=== PATIENT | female | born 1945 | race Caucasian/White ===

== ENCOUNTER 2023-08-17 21:15 | Inpatient (IN) ==
[2023-08-17] MEDS: ACETAMINOPHEN 1,000 MG/100 ML VIAL IV STA (21:54)
[2023-08-17] MEDS: SODIUM CHLORIDE 0.9% 1,000 ML IV STA (21:54)
--- NOTE | 2023-08-17 21:57 | Emergency Department Note ---
Impression & Plan Left sided abdominal pain, Diverticulitis, Calculus of proximal left ureter ED Provider Note CHIEF COMPLAINT: Left-sided abdominal pain x 2 days HISTORY OF PRESENT ILLNESS: This 78-year-old female patient presents to the emergency department via private vehicle for evaluation of left-sided abdominal pain. This has been ongoing for 2 days. The patient states that the symptoms are associated with some loose brown stool. She denies any hematochezia or melena. The patient denies any documented fever, but did states she felt feverish last night. She denies nausea or vomiting. She denies any dysuria, urinary frequency, urinary hesitancy, hematuria. The patient took some Tylenol and migraine medication without significant improvement in her symptoms. She states that she does have a history of diverticulitis, but is uncertain whether or not the pain felt like this. She does report history of a hysterectomy and when asked if she still has her gallbladder and appendix, states "I think they took them out with my hysterectomy, but I'm not sure." Patient is uncertain of her chronic medical conditions. She has been dealing with some right shoulder pain which is being worked up as an outpatient. The patient is a poor historian in general. REVIEW OF SYSTEMS: A 10 system review of systems was performed with positives and pertinent negatives listed in the history of present illness. All other systems were reviewed and are negative. ALLERGIES: Ciprofloxacin, niacin, oxybutynin, Zocor, metronidazole, Percocet, sulfa PHYSICAL EXAM: VITALS: Vitals are noted on the nurse's note and reviewed by myself. Vital signs stable. GENERAL: This is a 78-year-old female, in no acute distress, nondiaphoretic, well-developed well-nourished. SKIN: The skin was without rashes, erythema, edema, or bruising. There is no tenting of the skin. Capillary refill less than 2 seconds. HEAD: Normocephalic atraumatic. EYES: Conjunctivae without injection, sclerae without icterus. NECK: Supple without nuchal rigidity. No lymphadenopathy. No JVD. HEART: Regular rate and rhythm without murmurs gallops or rubs. LUNGS: Clear to auscultation bilaterally without wheezes, rales or rhonchi. No retractions or accessory muscle use. ABDOMEN: Positive bowel sounds x 4. Right-sided abdominal tenderness to palpation. The abdomen is otherwise soft, nontender, without masses or organomegaly. Julian sign negative. No guarding or rebound tenderness. No CVA tenderness bilaterally. MUSCULOSKELETAL: No muscle atrophy, erythema, or edema noted. Full range of motion without joint tenderness in all extremities. No tenderness to palpation. Normal gait. Strength 5/5 throughout. NEURO: Patient was alert and oriented to person place and time. No focal neurological deficits. 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 The monitor showed a normal sinus rhythm at a ventricular rate of 90 bpm, per my interpretation. Imaging as interpreted by myself and the radiologist revealed evidence of mild diverticulitis as well as an 8 mm proximal ureteral stone, with radiologist interpretation as above. I agree with the radiologist's findings as based upon my independent interpretation. EMERGENCY DEPARTMENT COURSE: The patient was seen and evaluated as above. The patient presents for left-sided abdominal pain. This started yesterday. The pain radiates around to the left lower quadrant of the abdomen. She has also had some loose stool. She does have a history of diverticulitis. IV access was obtained, labs are drawn. Patient was medicated with IV fluids, acetaminophen. Labs reviewed. Per my interpretation, there was no leukocytosis, anemia, thrombocytopenia. Renal, hepatic function and electrolytes without significant abnormalities. Lipase 6. Urinalysis concerning for 2+ blood and 1+ ketones. Trace leukocyte esterase CT imaging completed and was reviewed by myself radiologist as above. This is concerning for diverticulitis as well as an 8 mm left proximal ureteral stone with hydronephrosis I discussed the case with my attending physician. I discussed the findings with the patient and her son at bedside. We discussed options of care to include admission and inpatient management versus discharge to home with outpatient follow-up and oral medications. Given the patient's degree of pain earlier in the evening, she was concerned that she will be unable to manage her symptoms at home. Given the patient's age as well as the size of the stone and complicating factors of diverticulitis in addition to the large proximal ureteral stone, I do feel that inpatient care is reasonable I discussed case with the hse manager I discussed the case with Dr. Pimentel, [facility] physician. Please see his dictation regarding ongoing management care of this patient I attest that I have personally reviewed the patient medication list. I attest that I have reviewed the patient's blood pressure and it was found to be elevated. Patient referred to her PCP for recheck. GCS: 15 In the evaluation and treatment of this patient the following differential diagnoses were entertained: appendicitis, diverticulitis, obstruction, inflammatory bowel disease, renal colic, PUD, biliary pathology, pancreatitis, mesenteric ischemia, aortic pathology, infections, genitourinary, UTI, perforated viscus, as well as others were entertained. The chart was completed utilizing [employer] Speech voice recognition software. Grammatical errors, random word insertions, pronoun errors, and incomplete sentences are an occasional consequence of this system due to software limitations, ambient noise, and hardware issues. Any formal questions or concerns about the content, text, or information contained within the body of this dictation should be directly addressed to the provider for clarification. Past Med/Surg History Problem List (Updated 08/18/23 @ 02:44 by Nimo Goodman PA-C) Calculus of proximal left ureter (Acute) Diverticulitis (Acute) Left sided abdominal pain (Acute) Medical History HLD (hyperlipidemia) HTN (hypertension) Family History (Updated 06/16/23 @ 21:21 by Anderson Max PA-C) Other No pertinent family history Social History Smoking Status: Never smoker Preferred Language: Citizen Of The [place] Hearing Ability: Normal current occupational status: retired Feels Safe at Home: Yes Allergies Allergies Allergy/AdvReac Type Severity Reaction Status Date / Time ciprofloxacin Allergy Intermediate RASH, CAN Verified 08/18/23 01:45 NOT TAKE WITH CALCIUM niacin Allergy Intermediate Hives Verified 08/18/23 01:45 oxybutynin Allergy Unknown ON [facility] MED Verified 08/18/23 01:45 LIST simvastatin [From Zocor] Allergy Unknown ON [facility] MED Verified 08/18/23 01:45 LIST metronidazole AdvReac Intermediate METALLIC Verified 08/18/23 01:45 TASTE oxycodone [From Percocet] AdvReac Intermediate HALLUCINATI Verified 08/18/23 01:45 ONS Sulfa (Sulfonamide AdvReac Intermediate BAD TASTE Verified 08/18/23 01:45 Antibiotics) IN MOUTH Home Meds Home Medications Medication Instructions Recorded Confirmed acetaminophen 500 mg tablet 1,000 mg PO Q6H PRN Pain 09/03/22 08/18/23 (Tylenol Extra Strength) amlodipine 2.5 mg tablet 2.5 mg PO HS 09/03/22 08/18/23 lisinopril 20 mg tablet 20 mg PO QAM 09/03/22 08/18/23 metoprolol tartrate 50 mg tablet 50 mg PO BID 09/03/22 08/18/23 sertraline 100 mg tablet 100 mg PO QAM 09/03/22 08/18/23 ibuprofen 200 mg tablet 400 mg PO Q6H PRN Fever Or Pain 08/18/23 08/18/23 rosuvastatin 5 mg tablet 5 mg PO QPM 08/18/23 08/18/23 Results & Data (ED) Vital Signs Vital Signs - 24 hr 08/17/23 21:17 08/17/23 21:25 08/17/23 21:30 Temperature 36.6 C Temperature Source Temporal Artery Scan Pulse Rate 99 H 89 Pulse Rate [Apical] 90 Pulse Rate from SpO2 Sensor Respiratory Rate 18 18 Respiratory Effort / Characteristics Non-Labored Non-Labored Respiratory Depth Normal Normal Respiratory Pattern Regular Blood Pressure 177/85 H Blood Pressure [Left Arm] 190/76 H Blood Pressure Mean 115 Blood Pressure Mean [Left Arm] 114 Pulse Oximetry 96 96 Oxygen Delivery Method Room Air Room Air Sepsis Recent Fever Within 48 Hours No Sepsis New/Unexplained Change in Mental Status No Sepsis Action Taken by Nursing No Action Required 08/17/23 21:47 08/17/23 22:00 08/17/23 22:30 Temperature Temperature Source Pulse Rate 82 79 Pulse Rate [Apical] Pulse Rate from SpO2 Sensor 82 79 Respiratory Rate 20 20 Respiratory Effort / Characteristics Respiratory Depth Respiratory Pattern Blood Pressure 156/61 H 158/72 H Blood Pressure [Left Arm] Blood Pressure Mean 92 100 Blood Pressure Mean [Left Arm] Pulse Oximetry 96 94 93 Oxygen Delivery Method Room Air Sepsis Recent Fever Within 48 Hours Sepsis New/Unexplained Change in Mental Status Sepsis Action Taken by Nursing 08/18/23 01:33 Temperature Temperature Source Pulse Rate 79 Pulse Rate [Apical] Pulse Rate from SpO2 Sensor Respiratory Rate Respiratory Effort / Characteristics Respiratory Depth Respiratory Pattern Blood Pressure Blood Pressure [Left Arm] Blood Pressure Mean Blood Pressure Mean [Left Arm] Pulse Oximetry Oxygen Delivery Method Sepsis Recent Fever Within 48 Hours Sepsis New/Unexplained Change in Mental Status Sepsis Action Taken by Nursing Laboratory Data 08/17/23 21:30 08/17/23 21:30 Lab Results 08/17/23 Range/Units 21:30 WBC 9.07 (4.8-10.8) K/ul RBC 4.58 (4.20-5.40) M/uL Hgb 13.8 (12.0-16.0) g/dl Hct 41.6 (37.0-47.0) % MCV 90.8 (80.0-100.0) fL MCH 30.1 (25.0-34.0) pg MCHC 33.2 (32.0-36.0) g/dL RDW Std Deviation 46.5 H (36.4-46.3) fL RDW Coeff of Tim 14.0 (11.5-14.5) % Plt Count 175 (130-400) K/uL MPV 8.9 L (9.4-12.4) fL Immature Gran % (Auto) 0.3 % Neut % (Auto) 88.9 % Lymph % (Auto) 4.3 % [place] % (Auto) 6.2 % Eos % (Auto) 0.0 % Baso % (Auto) 0.3 % Neut # (Auto) 8.06 H (1.40-6.50) K/uL Lymph # (Auto) 0.39 L (1.20-3.40) K/uL [place] # (Auto) 0.56 (0.11-0.59) K/uL Eos # (Auto) 0.00 (0.00-0.50) K/uL Baso # (Auto) 0.03 (0.00-0.20) K/uL Immature Gran # (Auto) 0.03 (0.01-0.20) K/uL PT 10.8 (9.0-12.0) Seconds INR 1.0 (0.9-1.1) Sodium 137 (136-145) mmol/L Potassium 3.7 (3.5-5.1) mmol/L Chloride 103 (98-107) mmol/L Carbon Dioxide 22 (21-32) mmol/L Anion Gap 12 H (3-11) BUN 17 (6-23) mg/dl Creatinine 0.79 (0.6-1.2) mg/dl Est Cr Clr Drug Dosing 55.6 ml/min Est GFR ( Amer) 83.7 ml/min Est GFR (Non-Af Amer) 72.2 ml/min BUN/Creatinine Ratio 21.5 H (10-20) Glucose 178 H (70-99(Fasting)) mg/dl Calcium 10.1 (8.6-10.3) mg/dl Total Bilirubin 0.9 (0.2-1.0) mg/dl AST 25 (13-39) U/L ALT 28 (7-52) U/L Alkaline Phosphatase 111 H (34-104) U/L Total Protein 7.3 (6.0-8.3) gm/dl Albumin 4.5 (3.4-5.0) gm/dl Globulin 2.8 (2.5-4.0) gm/dl Albumin/Globulin Ratio 1.6 (0.9-2) Lipase 6 L (11-82) U/L Urine Color Dark Yellow Urine Appearance Clear (Clear) Urine pH 5.5 (4.5-7.5) Ur Specific [place] 1.020 (1.000-1.030) Urine Protein 1+ H (Negative) Urine Glucose (UA) Negative (Negative) Urine Ketones 1+ H (Negative) Urine Blood 2+ H (Negative) Urine Nitrite Negative (Negative) Urine Bilirubin Negative (Negative) Urine Urobilinogen Negative (Negative) Ur Leukocyte Esterase Trace H (Negative) Urine WBC (Auto) 0-5 (0-5) /hpf Urine RBC (Auto) 11-20 H (0-2) /hpf U Hyaline Cast (Auto) 3-5 H (0-2) /lpf U Epithel Cells (Auto) 0-2 (0-2) /hpf Urine Bacteria (Auto) None Seen (None Seen) Urine Mucus Present A (None Prsent) Administered Medications Discontinued Medications Sodium Chloride (Nss) 1,000 mls @ 999 mls/hr IV .Q1H1M STA Stop: 08/17/23 22:47 Last Infusion: 08/17/23 23:04 Dose: Infused Documented By: Admin: 08/17/23 21:54 Dose: 999 mls/hr Documented By: PAUL Acetaminophen (Ofirmev) 1,000 mg in 100 mls @ 400 mls/hr IV NOW STA Stop: 08/17/23 22:01 Last Infusion: 08/17/23 22:10 Dose: Infused Documented By: Admin: 08/17/23 21:54 Dose: 400 mls/hr Documented By: PAUL Piperacillin Sod/Tazobactam Sod (Zosyn) 4.5 gm in 100 mls @ 200 mls/hr IV NOW ONE Stop: 08/18/23 02:04 Last Admin: 08/18/23 01:54 Dose: 200 mls/hr Documented By: OSCAR Ioversol (Optiray 320 100ml) 90 ml IV ONCE ONE Stop: 08/17/23 22:51 Last Admin: 08/17/23 22:51 Dose: 90 ml Documented By: TRUONG Tamsulosin HCl (Tamsulosin Hcl 0.4 Mg Cap) 0.4 mg PO NOW ONE Stop: 08/18/23 01:36 Last Admin: 08/18/23 01:54 Dose: 0.4 mg Documented By: OSCAR Imaging Data Radiologist's Impression: Abdomen/Pelvis CT 08/17/23 21:47 Exam(s): CT ABDOMEN + PELVIS With Contrast IV Amt: 90 ml optiray 320 EXAM: CT Abdomen and Pelvis With Intravenous Contrast CLINICAL HISTORY: Reason for exam: Left sided abdominal pain. TECHNIQUE: Axial computed tomography images of the abdomen and pelvis with intravenous contrast. CTDI is 28.1 mGy and DLP is 1237.93 mGy-cm. Automated exposure control was utilized for the study. A dose lowering technique was utilized adhering to the principles of ALARA. CONTRAST: Patient received 90 ml optiray 320 of IV contrast COMPARISON: No relevant prior studies available. FINDINGS: Lung bases: Unremarkable. No mass. No consolidation. ABDOMEN: Liver: Hepatic steatosis. Gallbladder and bile ducts: Unremarkable. No calcified stones. No ductal dilation. Pancreas: Unremarkable. No mass. No ductal dilation. Spleen: Unremarkable. No splenomegaly. Adrenals: Unremarkable. No mass. Kidneys and ureters: Partially obstructing 8 mm stone in the LEFT proximal ureter. Mild fullness of the LEFT renal collecting system. No delayed nephrogram. Stomach and bowel: Peridiverticular inflammation about the proximal ascending colon, concerning for mild diverticulitis. Diverticulosis, without acute diverticulitis. No small bowel obstruction. No free intraperitoneal air. PELVIS: Appendix: No findings to suggest acute appendicitis. Bladder: Unremarkable. Normal urinary bladder. Reproductive: Unremarkable as visualized. ABDOMEN and PELVIS: Intraperitoneal space: Unremarkable. No free air. No significant fluid collection. Bones/joints: Degenerative changes of the spine. No acute fracture. No dislocation. Soft tissues: Unremarkable. Vasculature: Atherosclerotic changes of the aorta. No abdominal aortic aneurysm. Lymph nodes: Unremarkable. No enlarged lymph nodes. IMPRESSION: 1. Partially obstructing 8 mm stone in the LEFT proximal ureter. Mild fullness of the LEFT renal collecting system. No delayed nephrogram. 2. Peridiverticular inflammation about the proximal ascending colon, concerning for mild diverticulitis. Electronically signed by: James Light MD 08/18/23 01:15 AM Discharge Plan Visit Data Chief Complaint: Flank Pain Stated Complaint: LT FLANK/SHOULDER PAIN, VOMITING ED Provider: Trace López ED Midlevel Provider: Nimo Goodman Discharge Problem: Left sided abdominal pain, Diverticulitis, Calculus of proximal left ureter Patient Disposition: Admitted As Inpatient Forms Stand Alone Forms: [facility] Prescriptions Prescriptions: No Action lisinopril 20 mg Tablet 20 mg PO QAM sertraline 100 mg Tablet 100 mg PO QAM amlodipine 2.5 mg Tablet 2.5 mg PO HS acetaminophen [Tylenol Extra Strength] 500 mg Tablet 1,000 mg PO Q6H PRN (Reason: Pain) metoprolol tartrate 50 mg Tablet 50 mg PO BID rosuvastatin 5 mg tablet 5 mg PO QPM ibuprofen 200 mg Tablet 400 mg PO Q6H PRN (Reason: Fever Or Pain) Referrals Referrals: Leta Guerrier DO [Primary Care Provider] -
[2023-08-17 22:18] LABS: Basophils # (auto) 0.03 K/uL (0.00-0.20); Basophils % (auto) 0.3 %; Hematocrit (blood only) 41.6 % (37.0-47.0); Hemoglobin 13.8 g/dl (12.0-16.0); Immature Granulocytes # (auto) 0.03 K/uL (0.01-0.20); Immature Granulocytes % (auto) 0.3 %; Lymphocytes # (auto) 0.39 K/uL (1.20-3.40); Lymphocytes % (auto) 4.3 %; Mean Corpuscular Hemoglobin 30.1 pg (25.0-34.0); Mean Corpuscular Hgb Conc 33.2 g/dL (32.0-36.0); Mean Corpuscular Volume 90.8 fL (80.0-100.0); Mean Platelet Volume 8.9 fL (9.4-12.4); Monocytes # (auto) 0.56 K/uL (0.11-0.59); Monocytes % (auto) 6.2 %; Neutrophils # (auto) 8.06 K/uL (1.40-6.50); Neutrophils % (auto) 88.9 %; Platelet Count 175 K/uL (130-400); RDW Standard Deviation 46.5 fL (36.4-46.3); Red Blood Count 4.58 M/uL (4.20-5.40); White Blood Count 9.07 K/ul (4.8-10.8)
[2023-08-17 22:23] LABS: Albumin Globulin Ratio 1.6 (0.9-2); Albumin Level 4.5 gm/dl (3.4-5.0); BUN Creatinine Ratio 21.5 (10-20); Bilirubin,Total 0.9 mg/dl (0.2-1.0); Calcium 10.1 mg/dl (8.6-10.3); Creatinine Clr Calc Pharmacy 55.6 ml/min; Est GFR (African American) 83.7 ml/min; Est GFR (Non-African American) 72.2 ml/min; Globulin 2.8 gm/dl (2.5-4.0); Potassium 3.7 mmol/L (3.5-5.1); Total Protein 7.3 gm/dl (6.0-8.3)
[2023-08-17 22:34] LABS: Appearance Urine Clear (Clear); Bacteria Urine Automated None Seen (None Seen); Bilirubin Urine Negative (Negative); Blood Urine 2+ (Negative); Color Urine Dark Yellow; Epithelial Cell Urine Auto 0-2 /hpf (0-2); Glucose Urine UA Negative (Negative); Ketones Urine 1+ (Negative); Leukocyte Esterase Urine Trace (Negative); Mucus Urine Present (None Prsent); Nitrite Urine Negative (Negative); Protein Urine 1+ (Negative); Urobilinogen Urine Negative (Negative); WBC Urine Automated 0-5 /hpf (0-5); pH Urine 5.5 (4.5-7.5)
--- NOTE | 2023-08-17 22:40 | Emergency Department Note ---
ED Visit Note I was consulted by the Advanced Practice Provider Everett Goodman PA-C. I personally made/approved the management plan and take responsibility for the patient management. I performed a substantive portion of the visit. This includes the aspects of: -History/Physical/Personally seeing the patient -MDM .
[2023-08-17] MEDS: OPTIRAY 320 100ml IV ONE (22:51)
[2023-08-17 23:11] LABS: Prothrombin Time 10.8 Seconds (9.0-12.0)
--- NOTE | 2023-08-18 01:17 | CT Scan Report ---
Exam(s): CT ABDOMEN + PELVIS With Contrast IV Amt: 90 ml optiray 320 EXAM: CT Abdomen and Pelvis With Intravenous Contrast CLINICAL HISTORY: Reason for exam: Left sided abdominal pain. TECHNIQUE: Axial computed tomography images of the abdomen and pelvis with intravenous contrast. CTDI is 28.1 mGy and DLP is 1237.93 mGy-cm. Automated exposure control was utilized for the study. A dose lowering technique was utilized adhering to the principles of ALARA. CONTRAST: Patient received 90 ml optiray 320 of IV contrast COMPARISON: No relevant prior studies available. FINDINGS: Lung bases: Unremarkable. No mass. No consolidation. ABDOMEN: Liver: Hepatic steatosis. Gallbladder and bile ducts: Unremarkable. No calcified stones. No ductal dilation. Pancreas: Unremarkable. No mass. No ductal dilation. Spleen: Unremarkable. No splenomegaly. Adrenals: Unremarkable. No mass. Kidneys and ureters: Partially obstructing 8 mm stone in the LEFT proximal ureter. Mild fullness of the LEFT renal collecting system. No delayed nephrogram. Stomach and bowel: Peridiverticular inflammation about the proximal ascending colon, concerning for mild diverticulitis. Diverticulosis, without acute diverticulitis. No small bowel obstruction. No free intraperitoneal air. PELVIS: Appendix: No findings to suggest acute appendicitis. Bladder: Unremarkable. Normal urinary bladder. Reproductive: Unremarkable as visualized. ABDOMEN and PELVIS: Intraperitoneal space: Unremarkable. No free air. No significant fluid collection. Bones/joints: Degenerative changes of the spine. No acute fracture. No dislocation. Soft tissues: Unremarkable. Vasculature: Atherosclerotic changes of the aorta. No abdominal aortic aneurysm. Lymph nodes: Unremarkable. No enlarged lymph nodes. IMPRESSION: 1. Partially obstructing 8 mm stone in the LEFT proximal ureter. Mild fullness of the LEFT renal collecting system. No delayed nephrogram. 2. Peridiverticular inflammation about the proximal ascending colon, concerning for mild diverticulitis. Electronically signed by: James Light MD 08/18/23 01:15 AM
[2023-08-18] MEDS: TAMSULOSIN HCL 0.4 MG CAP PO ONE (01:54)
[2023-08-18] MEDS: PIPERACILLIN/TAZOBACTAM 4.5 GM/100 ML BAG IV ONE (01:54)
--- NOTE | 2023-08-18 02:29 | History & Physical Report ---
Date of Service August 18, 2023 Assessment & Plan (1) Abdominal pain: Plan: Multifactorial: Obstructive uropathy, urolithiasis Mild diverticulitis no sepsis for now hypertension, elevated secondary discomfort hyperlipidemia on statin Rx urge incontinence status post neurostimulator mood disorder, stable Right rotator cuff tear, labral tear on outpatient MRI Hyperglycemia rule out DM [facility] Strain urine Urology consult Re: Kidney stone N.p.o. until patient seen by urology in anticipation of intervention. Zosyn for diverticulitis Outpatient GI follow-up Inpatient Orthopedics evaluation for abnormal right shoulder MRI as per patient/family request. Check hemoglobin A1c DVT prophylaxis. SCDs Re: Possible procedure Full code Patient son requesting updates providers. Mr. Joaquín Obregon, contact #[phone]. Text document was generated using [employer] voice recognition software. It may contain grammatical or spelling errors. Kindly contact undersigned for clarification of any documentation item in question. History of Present Illness Chief Complaint: Abdominal pain Primary Care Provider: Leta Guerrier, History obtained from patient, family, and records. Medical history significant for hypertension, hyperlipidemia, urge incontinence status post neurostimulator, diverticulosis, mood disorder, recent outpatient MRI findings of rotator cuff tear (07/2023). 2 days history of achy left-sided abdominal pain with nausea vomiting. Loose brown stools. Feverish from time to time. Denies gross hematuria. No headache, no chest pain, no SOB. Zosyn administered at the ER. Medical History as above Achy right shoulder pain of 3 months duration without recollection of antecedent trauma. Outpatient right shoulder MRI done at [facility] last 08/13 requested by [facility] director of sports performance showed: Essentially complete full-thickness tear of the supraspinatus and infraspinatus tendons. Mild to moderate fatty atrophy of the supraspinatus, infraspinatus and teres minor muscles. Posterior superior labral tear. Moderate acromioclavicular osteoarthritis. MRI results above not yet known to patient. Outpatient [facility] orthopedics scheduled for next month. 2018 colonoscopy showed diverticulosis and polyps. 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 Allergies Allergy/AdvReac Type Severity Reaction Status Date / Time ciprofloxacin Allergy Intermediate RASH, CAN Verified 08/18/23 01:45 NOT TAKE WITH CALCIUM niacin Allergy Intermediate Hives Verified 08/18/23 01:45 oxybutynin Allergy Unknown ON [facility] MED Verified 08/18/23 01:45 LIST simvastatin [From Zocor] Allergy Unknown ON [facility] MED Verified 08/18/23 01:45 LIST metronidazole AdvReac Intermediate METALLIC Verified 08/18/23 01:45 TASTE oxycodone [From Percocet] AdvReac Intermediate HALLUCINATI Verified 08/18/23 01:45 ONS Sulfa (Sulfonamide AdvReac Intermediate BAD TASTE Verified 08/18/23 01:45 Antibiotics) IN MOUTH Home Medications Medication Instructions Recorded Confirmed Type acetaminophen 500 mg tablet 1,000 mg PO Q6H PRN Pain 09/03/22 08/18/23 History (Tylenol Extra Strength) amlodipine 2.5 mg tablet 2.5 mg PO HS 09/03/22 08/18/23 History lisinopril 20 mg tablet 20 mg PO QAM 09/03/22 08/18/23 History metoprolol tartrate 50 mg tablet 50 mg PO BID 09/03/22 08/18/23 History sertraline 100 mg tablet 100 mg PO QAM 09/03/22 08/18/23 History ibuprofen 200 mg tablet 400 mg PO Q6H PRN Fever Or Pain 08/18/23 08/18/23 History rosuvastatin 5 mg tablet 5 mg PO QPM 08/18/23 08/18/23 History Past Med/Surg History Problem List (Updated 08/18/23 @ 07:26 by Gideon Angel MD) Disorder of right rotator cuff Right shoulder pain Abdominal pain Calculus of proximal left ureter (Acute) Diverticulitis (Acute) Left sided abdominal pain (Acute) Medical History HLD (hyperlipidemia) HTN (hypertension) Family History Other No pertinent family history Social History Smoking Status: Never smoker Second Hand Exposure: No; Do You Dip or Chew Tobacco: No; Tobacco Cessation Education Requested by Patient: No Hx Alcohol Use: No Hx Substance Use: No Preferred Language: Malay Communication Ability: Effective Hearing Ability: Normal Ibm Websphere Commerce Developer Required: No Beliefs That Will Affect Care: None Current Living Situation: Alone Current Living Situation Comment: son joaquín lives next door current occupational status: retired Other Information That Helps Us Care for You: No Feels Safe at Home: Yes Safety Concerns: Feels Safe At This Time Assistive Devices: None Review of Systems Review of Systems: As per HPI, all other systems reviewed and negative Physical Exam Physical Exam: GENERAL: Comfortable, pleasant, no respiratory distress SKIN: Normal color, warm HEENT: Belle palpebral conjunctivae, no ptosis, dry buccal mucosa NECK : Supple, no tenderness CHEST : CTA, no tenderness HEART : RRR, no obvious murmurs ABDOMEN: Some distention, left-sided abdominal tenderness EXTREMITIES : Right shoulder tenderness with limited ROM, no LE swelling/tenderness, no other conspicuous deformities noted NEUROLOGIC : Coherent, no facial asymmetry, no other gross focality Results & Data Results & Data Vital Signs (Past 12 Hours) Vital Signs Temp Pulse Pulse Resp BP BP Pulse Ox 08/18/23 01:33 79 08/17/23 22:30 79 20 158/72 H 93 08/17/23 22:00 82 20 156/61 H 94 08/17/23 21:47 96 08/17/23 21:30 90 18 190/76 H 96 08/17/23 21:25 89 08/17/23 21:17 36.6 C 99 H 18 177/85 H 96 O2 Del Method 08/18/23 01:33 08/17/23 22:30 08/17/23 22:00 08/17/23 21:47 Room Air 08/17/23 21:30 Room Air 08/17/23 21:25 08/17/23 21:17 Room Air Laboratory Results Laboratory Results WBC 9.07 K/ul (4.8-10.8) 08/17/23 21:30 RBC 4.58 M/uL (4.20-5.40) 08/17/23 21:30 Hgb 13.8 g/dl (12.0-16.0) 08/17/23 21:30 Hct 41.6 % (37.0-47.0) 08/17/23 21:30 MCV 90.8 fL (80.0-100.0) 08/17/23 21: MCH 30.1 pg (25.0-34.0) 08/17/23 21: MCHC 33.2 g/dL (32.0-36.0) 08/17/23 21: RDW Std Deviation 46.5 fL (36.4-46.3) H 08/17/23: RDW Coeff of Tim 14.0 % (11.5-14.5) 08/17/23: Plt Count 175 K/uL (130-400) 08/17/23 21: MPV 8.9 fL (9.4-12.4) L 08/17/23: Immature Gran % (Auto) 0.3 % 08/17/23: Neut % (Auto) 88.9 % 08/17/23: Lymph % (Auto) 4.3 % 08/17/23: Bureau % (Auto) 6.2 % 08/17/23: Eos % (Auto) 0.0 % 08/17/23 21: Baso % (Auto) 0.3 % 08/17/23 21:30 Neut # (Auto) 8.06 K/uL (1.40-6.50) H 08/17/23: Lymph # (Auto) 0.39 K/uL (1.20-3.40) L 08/17/23:30 Bureau # (Auto) 0.56 K/uL (0.11-0.59) 08/17/23: Eos # (Auto) 0.00 K/uL (0.00-0.50) 08/17/23 21: Baso # (Auto) 0.03 K/uL (0.00-0.20) 08/17/23: Immature Gran # (Auto) 0.03 K/uL (0.01-0.20) 08/17/23: PT 10.8 Seconds (9.0-12.0) 08/17/23: INR 1.0 (0.9-1.1) 08/17/23: Sodium 137 mmol/L (136-145) 05/18/24 21:30 Potassium 3.7 mmol/L (3.5-5.1) 08/17/23 21:30 Chloride 103 mmol/L (98-107) 08/17/23 21: Carbon Dioxide 22 mmol/L (21-32) 08/17/23 21:30 Anion Gap 12 (3-11) H 08/17/23 21:30 BUN 17 mg/dl (6-23) 08/17/23 21: Creatinine 0.79 mg/dl (0.6-1.2) 08/17/23: Est Cr Clr Drug Dosing 55.6 ml/min 08/17/23 21:30 Est GFR ( Amer) 83.7 ml/min 08/17/23 21: Est GFR (Non-Af Amer) 72.2 ml/min 08/17/23 21: BUN/Creatinine Ratio 21.5 (10-20) H 08/17/23 21: Glucose 178 mg/dl (70-99(Fasting)) H 08/17/23: Calcium 10.1 mg/dl (8.6-10.3) 08/17/23: Total Bilirubin 0.9 mg/dl (0.2-1.0) 08/17/23 21: AST 25 U/L (13-39) 08/17/23: ALT 28 U/L (7-52) 08/17/23 21: Alkaline Phosphatase 111 U/L (34-104) H 08/17/23:30 Total Protein 7.3 gm/dl (6.0-8.3) 08/17/23: Albumin 4.5 gm/dl (3.4-5.0) 08/17/23: Globulin 2.8 gm/dl (2.5-4.0) 08/17/23: Albumin/Globulin Ratio 1.6 (0.9-2) 08/17/23: Lipase 6 U/L (11-82) L 08/17/23 21:30 Urine Color Dark Yellow 08/17/23: Urine Appearance Clear (Clear) 08/17/23 21: Urine pH 5.5 (4.5-7.5) 08/17/23: Ur Specific Ralston 1.020 (1.000-1.030) 08/17/23 21:30 Urine Protein 1+ (Negative) H 08/17/23 21:30 Urine Glucose (UA) Negative (Negative) 08/17/23 21:30 Urine Ketones 1+ (Negative) H 08/17/23 21:30 Urine Blood 2+ (Negative) H 08/17/23 21:30 Urine Nitrite Negative (Negative) 08/17/23 21:30 Urine Bilirubin Negative (Negative) 08/17/23 21:30 Urine Urobilinogen Negative (Negative) 08/17/23 21:30 Ur Leukocyte Esterase Trace (Negative) H 08/17/23 21:30 Urine WBC (Auto) 0-5 /hpf (0-5) 08/17/23 21:30 Urine RBC (Auto) 11-20 /hpf (0-2) H 08/17/23 21:30 U Hyaline Cast (Auto) 3-5 /lpf (0-2) H 08/17/23 21:30 U Epithel Cells (Auto) 0-2 /hpf (0-2) 08/17/23 21:30 Urine Bacteria (Auto) None Seen (None Seen) 08/17/23 21:30 Urine Mucus Present (None Prsent) A 08/17/23 21:30 Impressions Abdomen/Pelvis CT 08/17/23 21:47 Exam(s): CT ABDOMEN + PELVIS With Contrast IV Amt: 90 ml optiray 320 EXAM: CT Abdomen and Pelvis With Intravenous Contrast CLINICAL HISTORY: Reason for exam: Left sided abdominal pain. TECHNIQUE: Axial computed tomography images of the abdomen and pelvis with intravenous contrast. CTDI is 28.1 mGy and DLP is 1237.93 mGy-cm. Automated exposure control was utilized for the study. A dose lowering technique was utilized adhering to the principles of ALARA. CONTRAST: Patient received 90 ml optiray 320 of IV contrast COMPARISON: No relevant prior studies available. FINDINGS: Lung bases: Unremarkable. No mass. No consolidation. ABDOMEN: Liver: Hepatic steatosis. Gallbladder and bile ducts: Unremarkable. No calcified stones. No ductal dilation. Pancreas: Unremarkable. No mass. No ductal dilation. Spleen: Unremarkable. No splenomegaly. Adrenals: Unremarkable. No mass. Kidneys and ureters: Partially obstructing 8 mm stone in the LEFT proximal ureter. Mild fullness of the LEFT renal collecting system. No delayed nephrogram. Stomach and bowel: Peridiverticular inflammation about the proximal ascending colon, concerning for mild diverticulitis. Diverticulosis, without acute diverticulitis. No small bowel obstruction. No free intraperitoneal air. PELVIS: Appendix: No findings to suggest acute appendicitis. Bladder: Unremarkable. Normal urinary bladder. Reproductive: Unremarkable as visualized. ABDOMEN and PELVIS: Intraperitoneal space: Unremarkable. No free air. No significant fluid collection. Bones/joints: Degenerative changes of the spine. No acute fracture. No dislocation. Soft tissues: Unremarkable. Vasculature: Atherosclerotic changes of the aorta. No abdominal aortic aneurysm. Lymph nodes: Unremarkable. No enlarged lymph nodes. IMPRESSION: 1. Partially obstructing 8 mm stone in the LEFT proximal ureter. Mild fullness of the LEFT renal collecting system. No delayed nephrogram. 2. Peridiverticular inflammation about the proximal ascending colon, concerning for mild diverticulitis. Electronically signed by: James Light MD 08/18/23 01:15 AM
[2023-08-18] MEDS ORDERED: PROMETHAZINE HCL 6.25 MG in SODIUM CHLORIDE 0.9% 50 ML IV PRN (02:38)
[2023-08-18] MEDS ORDERED: MoRPHine SULFATE 2 MG/ML CARP IV PRN (02:38)
[2023-08-18] MEDS: NSS + 20MEQ KCL 20 MEQ/1,000 ML BAG IV ONE (03:24)
--- OUTSIDE RECORDS SUMMARY | 2023-08-18 04:22 | External Medical Summary | Summary of Care ---
Author Name Unknown Organization [facility] Address [address] [facility] [facility] [place] [address] Phone [phone] Care Team Providers Care Picking Supervisor Name Role Phone Leta Guerrier DO Primary Care Provider Reason for Visit * Reason Onset Date Comments Med Request 07/22/2023 Encounter Details Date Type Department Care Team (Late st Contact Info) Description 07/22/2023 Telephone Orthopaedics [facility] [address] [place] [id number] Dong Vuong MD [address] [place] [id number] Med Request Allergies Active Allergy Reactions Criticality Noted Date Comments Ciprofloxacin 02/05/2005 Rash, can't take with calcium Metronidazole Hcl 02/05/2005 metallic taste Niacin And Related 01/25/2010 Hives Oxybutynin 02/05/2005 Percocet 02/05/2005 Hallucinations Sulfa Antibiotics 09/09/2000 Bad taste Simvastatin 01/25/2010 documented as of this encounter (statuses as of 07/23/2023) Medications Medication Sig Dispensed Refills Start Date End Date Status benzonatate (TESSALON PERLES) 100 MG CapsuleIndication s:Cough Swallow 1 or 2 pills three times a day as needed for cough. Do not cut, crush, or chew. 50 Cap 1 08/04/2018 Active Ibuprofen 800 MG Oral Tablet (Motrin) Take 1 Tablet by mouth every 8 hours as needed for Pain, Severe. Alternate with Acetaminophen 30 Tablet 0 07/20/2022 Active Acetaminophen 500 MG Oral Tablet (Tylenol)Indicati ons:Diverticuliti s of colon 2 Tablets. 0 09/03/2022 Active amLODIPine Besylate 2.5 MG Oral Tablet (Norvasc)Indicati ons:HTN, goal below 140/90 TAKE ONE TABLET BY MOUTH EVERY DAY IN THE EVENING 90 Tablet 3 09/13/2022 09/13/2023 Active Metoprolol Tartrate 50 MG Oral Tablet (Lopressor)Indica tions:HTN, goal below 140/90 TAKE ONE TABLET BY MOUTH TWICE A DAY 180 Tablet 3 10/09/2022 Active Rosuvastatin Calcium 5 MG Oral Tablet (Crestor)Indicati ons:Dyslipidemia, goal LDL below 130 Take 1 Tablet by mouth in the morning. 90 Tablet 3 11/19/2022 Active Lisinopril 20 MG Oral Tablet (Prinivil)Indicat ions:HTN, goal below 140/90 TAKE ONE TABLET BY MOUTH EVERY MORNING 100 Tablet 2 02/05/2023 02/05/2024 Active Amoxicillin 500 MG Oral Capsule (Amoxil) Take 1 capsule by mouth twice daily starting 2 days prior to surgery 14 Capsule 0 02/19/2023 Active Additional Information Patient not taking.Reported on 05/30/2023 Sertraline HCl 100 MG Oral Tablet (Zoloft)Indicatio ns:Major depressive disorder, single episode, in full remission (HCC) TAKE ONE TABLET BY MOUTH EVERY MORNING 90 Tablet 3 04/19/2023 04/18/2024 Active Magnesium 100 MG Oral Capsule Take 1 Capsule by mouth in the morning. 0 Active Ondansetron HCl 4 MG Oral TabletIndications :Screen for colon cancer Take 1 Tablet by mouth every 8 hours as needed for Nausea. 30 Tablet 0 05/27/2023 Active Hydrocortisone 2.5 % External CreamIndications: Seborrheic dermatitis Apply topically to affected area 3 times a day. To affected area. 30 g 5 05/27/2023 Active valACYclovir HCl 1 GM Oral Tablet (Valtrex)Indicati ons:Cold sore Take 2 Tablets by mouth in the morning and 2 Tablets before bedtime. for cold sores. 4 Tablet 11 05/27/2023 Active Meloxicam 7.5 MG Oral Tablet (Mobic) Take 1 Tablet by mouth in the morning. for pain.. 30 Tablet 5 07/04/2023 Active Acetaminophen 500 MG Oral Tablet (Tylenol) Take 2 Tablets by mouth every 6 hours as needed for Pain, Moderate. 100 Tablet 0 07/04/2023 Active diazePAM 5 MG Oral Tablet (Valium) Take 1 Tablet by mouth once as needed for Other (take 45 min before MRI, must have bobtail driver) for up to 1 dose. 1 Tablet 0 07/23/2023 Active documented as of this encounter (statuses as of 07/23/2023) Active Problems Problem Noted Date Diagnosed Date Neurostimulator device in situ 12/03/2022 Fecal incontinence 04/24/2022 Major depressive disorder, s cristal episode, in full remission 09/29/2020 Moderate episode of recurrent major depressive d isorder 03/31/2020 Urge incontinence 03/31/2020 HTN, goal below 140/90 09/03/2017 History of neoplasm 12/10/2016 Dyslipidemia, goal LDL below 130 08/20/2011 DIVERTICULOSIS OF COLON 10/22/2002 documented as of this encounter (statuses as of 07/23/2023) Resolved Problems Problem Noted Date Diagnosed Date Resolved Date Dependent relative needing care at home 09/29/2020 04/04/2021 Need for prophylactic hormon e replacement therapy (postmenopausal) 08/12/2017 03/05/2018 Hypertension goal BP (blood pressure) < 150/90 12/10/2016 09/03/2017 Dyslipidemia, goal to be determined 03/16/2009 08/20/2011 Overview: Per Lipid Taxonomy. ADVANCE DIRECTIVE INFORMATION 01/18/2009 09/03/2017 Overview: No, Advance Directive brochure given to patient. Hemorrhoids 08/20/2005 12/10/2016 PURE HYPERCHOLESTEROLEM 04/19/200303/01 Overview: Per Lipid Taxonomy. HTN, goal below 140/90 06/02/200112/10 Need for prophylactic hormon e replacement therapy (postmenopausal) 06/02/2001 03/05/2018 Other screening mammogram 06/02/2001 Overview: Resolved per Screening Diagnosis Protocol #6 Tubulovillous adenoma polyp of colon 06/02/2001 08/04/2018 documented as of this encounter (statuses as of 07/23/2023) Immunizations Name Administration Dates Next Due COVID-19 mRNA, LNP-s, No Pre serve, 2-Dose Series (Pfizer) 02/22/2021,06/22/2020,06/01/2020 Pneumococcal Conjugate Vacc, 13 Valent (Prevnar) 09/17/2016 Pneumococcal Polysaccharide PPV23 (Pneumovax) 02/19/2011 Season Influenza, Quad, PF, Adjuvanted, 65+ Yrs, IM (FLUAD) 01/15/2020 Seasonal Influenza, PF, 6 M & above, IM , (FluLaval or Fluzone) 01/24/2018,01/14/2017 Seasonal Influenza, Quadriva lent Hd (Fluzone Hd) 02/05/2023,01/30/2022,01/20/2021 Seasonal Influenza, Quadriva lent, No Preserve, IM 03/05/2016,03/14/2015 Seasonal Influenza, Split, I IV3, With Preserve, Inj 02/22/2014,01/26/2013,02/25/2012,02/07,01/25/2010,04/08/2009,01/23/2008 ,02/07/2007,02/07/2006 Seasonal Influenza, Trivalen t, Adjuvanted, 65+ yrs 02/05/2019 TDAP (age 10 and older)(Boostrix) 09/29/2020 TDAP (age 11 and older)(Adacel) 07/09/2008 Varicella Zoster Vaccine (Adult) 02/25/2012 Zoster Vaccine Recombinant (Shingrix) 02/04/2020 ,10/29/2019 documented as of this encounter Social History Tobacco Use Types Packs/Day Years Used Date Smoking Tobacco: Never Smokeless Tobacco: Never Alcohol Use Standard Drinks/Week Comments No 0 (1 standard drink = 0.6 oz pur e alcohol) PHQ-2 Answer Date Recorded PHQ Adult Total Score 1 08/06/2022 Sex and Gender Information Value Date Recorded Sex Assigned at Female 10/07/2019 2:51 PM EDT Gender Identity Female 10/07/2019 2:51 PM EDT Sexual Orientation Straight 10/07/2019 2: 51 PM EDT Job Start Date Occupation Industry Not on file Not on file Not on file documented as of this encounter Miscellaneous Notes * Telephone Encounter - Dong Vuong MD - 07/23/2023 1:06 PM EDT Valium prescribed * Telephone Encounter - Lois Collazo OSA - 07/22/2023 11:53 AM EDT Incoming call from patient stating that she is to have an MRI on 08/14/2023 and she is requesting a sedative to be prescribed and sent to the [facility]. Patient can be reached at [phone]. Please send a prescription if appropriate. Thank you, Lois Collazo Field Marketing Manager [facility] ([facility]) 07/22/2023,11:54 AM documented in this encounter Plan of Treatment Upcoming Encounters Date Type Department Care Team (Late st Contact Info) Description 08/14/2023 9:00 AM EDT Imaging Radiology [address] [place] [address] 08/14/2023 10:00 AM EDT Imaging Radiology [address] [place] [address] 08/14/2023 10:30 AM EDT Imaging Radiology [address] [place] [address] 08/30/2023 2:30 PM EDT Office Visit Interventional Pain Center, [facility] [address] [place] [address] Jacqueline Baker PA-C [address] [place] [address] 11/26/2023 9:40 AM EDT Office Visit [facility] [address] [place] [id number] Leta Guerrier DO [address] [place] [id number] Scheduled Procedures Name Priority Associated Diagnoses Date/Ti me COLONOSCOPY FLEXIBLE PROXIMAL DIAGNOSTIC Recall History of colon polyps Health Maintenance Due Date Last Done Comments COLONOSCOPY-EVERY 2 YRS AGES 18-100 02/25/2020 02/24/2018, 02/24/2018, 10/27/2012, Additional history exists COVID-19 Vaccine ( season) 2022 02/22/2021, 06/22/2020, 06/01/2020 GFR 12/18/2023 12/17/2022, 12/30, 04/04/2021, Additional history exists Albumin/Creatinine Ratio 01/16/2025 01/16/2022 DXA Scan 05/15/2028 05/15/2021, 05/02, 06/15/2014, Additional history exists DTaP,Tdap,and Td Vaccines (3 - Td or Tdap) 09/29/2030 09/29/2020, 07/09/2008 Pneumococcal Vaccine: 65+ Years Completed 09/17/2016, 02/19/2011 Zoster Vaccines Completed 02/04/2020, 10/01, 02/25/2012 Influenza Vaccine (FLU shot) Completed 09/2022, 01/30/2022, 01/20/2021, Additional history exists GARDASIL-HPV IMMUNIZATION SERIES Aged Out No longer eligible based on patient's age to complete this topic Hepatitis B Aged Out No longer eligi ble based on patient's age to complete this topic MENINGOCOCCAL (MENACTRA/MENVEO) Aged Out No longer eligible based on patient's age to complete this topic documented as of this encounter Medical Devices Implanted Type Area Laser Engineer Device Identifier Shelf Expiration Date Model / Serial / Lot Percutaneous Extension [id number] - [id number] - [id number] Implanted:Qty: 1 on 07/13/2022 by Gideon Espino MD at OR [facility] Right: Back [employer] 09/11/2024 9009 / [id number] / Kit Tined Lead - [id number] - [id number] Implanted:Qty: 1 on 07/13/2022 by Gideon Espino MD at OR [facility] Right: Back [employer] 03/14/2025 1201 / [id number] / Neurostim Non Rechargeable - [id number] - [id number] Implanted:Qty: 1 on 07/20/2022 by Gideon Espino MD at OR [facility] N/A: Back [employer] 02/27/2023 4101 / [id number] / documented as of this encounter Visit Diagnoses Diagnosis Radicular pain in right arm- Primary Neuralgia, neuritis, and radiculitis, unspecified Neck pain Cervicalgia documented in this encounter Advance Directives Documents on File Type Date Recorded Patient Night Warehouse Manager Expl anation Power of Tire Spotter 10/04/2005 Latest Code Status on File Code Status Date Activated Date Inactivated Comments Full Code 07/20/2022 1:30 PM 07/20/2022 6:51 PM This order reflects the patients wishes and were consensually agreed upon. Question Answer Comments Discussion of Advance Directives occurred with: Patient Code Status History Code Status Date Activated Date Inactivated Comments Full Code 07/13/2022 11:25 AM 07/13/2022 5:31 PM This order reflects the patients wishes and were consensually agreed upon. Question Answer Comments Discussion of Advance Directives occurred with: Not Discussed due to patient's condition Care Teams Picking Supervisor Relationship Specialty Start Date End Date Leta Guerrier DO [address] [place] [address] PCP - General Family Medicine 08/12/17 documented as of this encounter
--- OUTSIDE RECORDS SUMMARY | 2023-08-18 04:22 | External Medical Summary | Summary of Care ---
Author Name Unknown Organization [facility] Address [address] [facility] [place] [address] Phone [phone] Care Team Providers Care Fish Farm Manager Name Role Phone Leta Guerrier DO Primary Care Provider Reason for Referral * Evaluate & Treat - Unlimited Visits (Within 10 days (routine)) - Authorized Specialty Diagnoses / Procedures Referred By Susan honeycutt Referred To Contact Pain Management / Pain Medicine Diagnoses Neck pain Radicular pain in right arm Dong Vuong MD [address] [facility] [place] [address] Referral ID Status Reason Start Date Expiration Date Visits Requested Visits Authorized [id number] Authorized Specialty Services Required 07/12/2023 999 999 Question Answer Referral Priority Within 10 days (routine) Where should this appointment be scheduled? [facility] Reason for referral? Interventional Pain Management - (Injection) What condition is the patient being referred for? Cervical Radiculopathy What is the preferred location to have this test performed? [facility] Comments Patient Name: Gloria Obregon Date of : 1945 Department Phone Number: MRI or CT (if unable to have a MRI) is recommended if any of the following apply: 1. Patient has neck or back pain with radiation to extremities. A previous MRI will be accepted if symptoms unchanged since prior MRI. 2. Spinal surgery since last MRI. If yes, order a MRI with and without contrast. 3. Hx or ongoing cancer treatment. Patient will need spine x-ray (Ap/Lat) for axial neck or back pain if not done previously. Fax No. [facility] [phone] or contact front office specialist [phone] Fax No. [facility] [phone] or contact front office specialist [phone] Fax No. [facility] [phone] or contact front office specialist [phone] * Precert (Within 10 days (routine)) - Pending Review Specialty Diagnoses / Procedures Referred By Contac t Referred To Contact Radiology Diagnoses Neck pain Radicular pain in right arm Procedures MRI C SPINE WO CONTRAST Dong Vuong MD [address] [place] [address] Referral ID Status Reason Start Date Expiration Date V isits Requested Visits Authorized [id number] Pending Review 07/12/2023 999 999 * Precert (Within 10 days (routine)) - Pending Review Specialty Diagnoses / Procedures Referred By Contac t Referred To Contact Radiology Diagnoses Acute pain of right shoulder Procedures MRI SHOULDER RIGHT WO CONTRAST Dong Vuong MD [address] [place] [address] Referral ID Status Reason Start Date Expiration Date V isits Requested Visits Authorized [id number] Pending Review 07/12/2023 999 999 Reason for Visit * Reason Comments Other Right shoulder * Evaluate & Treat - Unlimited Visits (Within 30 days (routine)) - Authorized Specialty Diagnoses / Procedures Referred By Contac t Referred To Contact Sports Medicine / Orthopedics Diagnoses Acute pain of right shoulder Sharer, Linda Avila PA-C [address] [place] [address] Referral ID Status Reason Start Date Expiration Date Visits Requested Visits Authorized [id number] Authorized Specialty Services Required 05/31/2023 999 999 Encounter Details Date Type Department Care Team (Late st Contact Info) Description 07/12/2023 11:00 AM EDT Office Visit Orthopaedics [facility] [address] [place] [address] Dong Vuong MD [address] [place] [address] Acute pain of right shoulder*; Neck pain; Radicular pain in right arm Allergies Active Allergy Reactions Criticality Noted Date Comments Ciprofloxacin 02/05/2005 Rash, can't take with calcium Metronidazole Hcl 02/05/2005 metallic taste Niacin And Related 01/25/2010 Hives Oxybutynin 02/05/2005 Percocet 02/05/2005 Hallucinations Sulfa Antibiotics 09/09/2000 Bad taste Simvastatin 01/25/2010 documented as of this encounter (statuses as of 07/12/2023) Medications Medication Sig Dispensed Refills Start Date [...] Pain, Moderate. 100 Tablet 0 07/04/2023 Active documented as of this encounter (statuses as of 07/12/2023) Active Problems Problem Noted Date Diagnosed Date [...] as of this encounter (statuses as of 07/12/2023) Resolved Problems Problem Noted Date Diagnosed Date [...] as of this encounter (statuses as of 07/12/2023) Immunizations Name Administration Dates Next Due COVID-19 mRNA, LNP-s, No Pre serve, 2-Dose Series ([employer]) 02/22/2021,06/22/2020,06/01/2020 Pneumococcal Conjugate Vacc, 13 Valent (Prevnar) [...] on file documented as of this encounter Patient Instructions * Patient Instructions* Dong Vuong MD - 07/12/2023 11:42 AM EDT Make sure they send us MRI reports and that you get both MRI images on a disc to bring us documented in this encounter Progress Notes * Dong Vuong MD - 07/12/2023 11:01 AM EDT Gloria Obregon [id number] Gloria Obregon is a 78 year old female who presents for consultation to [facility] for right shoulder injury/pain. Consult requested by Linda Avina PA-C. Gloria Obregon is here unaccompanied History: Level of pain: reviewed and agree with Nursing Notes for HPI elements History - I have read the note from when she was evaluated for this in the Orthopedic walk-in Clinic by Linda Avina PA-C (orthopedics) on 05/31/2023. 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 Physical therapy was recommended. 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 COLONOSCOPY FLEXIBLE PROXIMAL DIAGNOSTIC performed by Hodan Chu DO at [facility],hyperplastic and adenomatous polyps repeat colonoscopy in 5 years Diverticulosis of colon 10/22/2002 PURE HYPERCHOLESTEROLEM 04/19/2003 Family History Problem Relation Age of Onset Cancer None Heart Disorder Brother Diabetes Brother Heart Disorder Brother Hypertension Sister Hypertension Mother Emphysema Mother Thyroid Disorder Sister Alcohol and Other Disorders Associated Father Stroke Grandmother (Maternal) Breast Cancer Daughter 51 Colon cancer Daughter breast, bone, lung, colon- Social History Socioeconomic History Marital status: Spouse name: Not on file Number of children: 4 Years of education: Not on file Highest education level: Not on file Occupational History Not on file Tobacco Use Smoking status: Never Smokeless tobacco: Never Vaping Use Vaping Use: Never used Substance and Sexual Activity Alcohol use: No Drug use: No Sexual activity: Not Currently Partners: Male Comment: M x 37yrs Other Topics Concern Not on file Social History Narrative Not on file Social Determinants of Health Financial Resource Strain: Not on file Food Insecurity: Not on file Transportation Needs: Not on file Physical Activity: Not on file Stress: Not on file Social Connections: Not on file Intimate Partner Violence: Not on file Housing Stability: Not on file Physical Exam Constitutional: Generally well-nourished and in no acute distress Psychiatric: Mood and Affect normal Eyes: EOMI Respiratory: Normal respiratory effort with regular rate and rhythm Cardiovascular: No edema in the affected extremity (s) Shoulder Exam Inspection: Palpation: ROM: Forward Flexion (normal 180): L - 180, R - 120 Abduction (normal 180): L - 180, R - 90 External rotation at 0: L - 70, R - 70 Internal Rotation: T12 L, l5 R Full passive range of motion Radiology: 07/12/2023: Four view x-ray of the cervical spine Degenerative changes at multiple levels greatest from C5-C8 where there was fusion of C6 and C7 - per my interpretation. Awaiting formal radiology interpretation. 05/31/2023: 4 view xr of R shoulder FINDINGS Joint spaces are maintained. Mild degenerative change at the acromioclavicular joint. The acromiohumeral distance is normal. There is no fracture or dislocation. Visualized lung garvin are clear. IMPRESSION IMPRESSION Mild degenerative change acromioclavicular joint Assessment and Plan: Right shoulder pain Suspect complete tear of the supraspinatus tendon MRI of the shoulder In office follow-up least 3 days after that MRI 2. Neck and radicular arm pain Suspect cervical radiculopathy Significant changes noted on radiographs MRI of the cervical spine Pain management referral For issues patient attended over 5 weeks of therapy 2 times per week and did not have improvement Dong Vuong MD [facility] Sports Medicine Orthopaedics [address] [place] [address] documented in this encounter Nursing Notes * Justina Curiel MED ASSIST - 07/12/2023 10:50 AM EDT Here for follow up regarding ongoing right shoulder pain, has completed PT yesterday without much relief. documented in this encounter Plan of Treatment Upcoming Encounters Date Type Department Care Team (Late st Contact Info) Description 11/26/2023 9:40 AM EDT Office Visit [facility] [place] [address] Leta Guerrier DO [address] [facility] [place] [address] Pending Results Name Type Priority Associated Diagnoses Date /Time XR C SPINE 4-5 VIEWS Medical Imaging Routine Neck pain Radicular pain in right arm 07/12/2023 11:24 AM EDT Scheduled Orders Name Type Priority Associated Diagnoses Orde r Schedule MRI SHOULDER RIGHT WO CONTRAST Medical Imaging Routine Acute pain of right shoulder Expected: 07/12/2023, Expires: 08/10/2024 MRI C SPINE WO CONTRAST Medical Imaging Routine Neck pain Radicular pain in right arm Expected: 07/12/2023, Expires: 08/10/2024 Scheduled Procedures Name Priority Associated Diagnoses Date/Ti me COLONOSCOPY FLEXIBLE PROXIMAL DIAGNOSTIC Recall History of colon polyps Scheduled Referrals Name Type Priority Associated Diagnoses Orde r Schedule PAIN MEDICINE REFERRAL OP Referral Within 10 days (routine) Neck pain Radicular pain in right arm Ordered: 07/12/2023 Health Maintenance Due Date Last Done Comments [...] this encounter Medical Devices Implanted Type Area Hand Stemmer Device Identifier Shelf Expiration Date Model / Serial / Lot Percutaneous Extension 2201bun - [id number] - [id number] Implanted:Qty: 1 on 07/13/2022 by Gideon Espino MD at [facility] Right: Back [employer] 09/11/2024 9009 / [id number] / Kit Tined Lead - [id number] - [id number] Implanted:Qty: 1 on 07/13/2022 by Gideon Espino MD at [facility] Right: Back [employer] 03/14/2025 1201 / [id number] / Neurostim Non Rechargeable - [id number] - [id number] Implanted:Qty: 1 on 07/20/2022 by Gideon Espino MD at OR [facility] N/A: Back [employer] 02/27/2023 4101 / [id number] / documented as of this encounter Visit Diagnoses Diagnosis Acute pain of right shoulder- Primary Neck pain Cervicalgia Radicular pain in right arm Neuralgia, neuritis, and radiculitis, unspecified documented in this encounter Advance Directives Documents on File Type Date Recorded Patient Superintendent Institution Expl anation Power of Frozen Food Department Manager 10/04/2005 Latest Code Status on File Code [...] Discussed due to patient's condition Care Teams Fish Farm Manager Relationship Specialty Start Date End Date Leta Guerrier DO [address] [place] [address] PCP - General Family Medicine 08/12/17 documented as of this encounter
--- OUTSIDE RECORDS SUMMARY | 2023-08-18 04:22 | External Medical Summary | Summary of Care ---
Author Name Unknown Organization [facility] [address] [place] [address] Phone [phone] Care Team Providers Care Engine Pilot Name Role Phone Leta Guerrier DO Primary Care Provider Reason for Visit * Reason Onset Date Comments Appointment 07/12/2023 Encounter Details Date Type Department Care Team (Late st Contact Info) Description 07/12/2023 Telephone Radiology, [facility] [address] [place] [address] Requisition, External Radiology [address] [place] [address] Appointment Allergies Active Allergy Reactions Criticality Noted Date [...] mRNA, LNP-s, No Pre serve, 2-Dose Series ([employer]) 02/22/2021,06/22/2020,06/01/2020 Pneumococcal Conjugate Vacc, 13 Valent (Prevnar) [...] encounter Miscellaneous Notes * Telephone Encounter - Krista Mack OSA - 07/12/2023 5:29 PM EDT Pt has a bladder implant her card for the device is scanned in her chart. Please triage. documented in this encounter Plan of Treatment Upcoming Encounters Date Type Department Care Team (Late st Contact Info) Description 08/14/2023 9:00 AM EDT Imaging Radiology [address], [place] [address] [facility] [place] [address] 08/14/2023 10:00 AM EDT Imaging Radiology [address], [place] [address] [facility] [place] [address] 08/14/2023 10:30 AM EDT Imaging Radiology [address], [place] [address] [facility] [place] [address] 08/30/2023 2:30 PM EDT Office Visit Interventional Pain Center, [facility] [address] [facility] [place] [address] Jacqueline Baker PA-C [address] [facility] [place] [address] 11/26/2023 9:40 AM EDT Office Visit Family Practice [facility] [address] [facility] [place] [address] Leta Guerrier, [address] [facility] [place] [address] Scheduled Procedures Name Priority Associated Diagnoses Date/Ti [...] this encounter Medical Devices Implanted Type Area Fruit Buying Grader Device Identifier Shelf Expiration Date Model / Serial / Lot Percutaneous Extension 2201bun - [id number] - [id number] Implanted:Qty: 1 on 07/13/2022 by Gideon Espino MD at OR [facility] Right: Back [employer] 09/11/2024 9009 / [id number] / Kit Tined Lead - [id number] - [id number] Implanted:Qty: 1 on 07/13/2022 by Gideon Espino MD at OR [facility] Right: Back [employer] 03/14/2025 1201 / [id number] / Neurostim Non Rechargeable - [id number] - [id number] Implanted:Qty: 1 on 07/20/2022 by Gideon Espino MD at OR [facility] N/A: Back [employer] 02/27/2023 4101 / [id number] / documented as of this encounter Advance Directives Documents on File Type Date Recorded Patient Paper Colorer Expl anation Power of Custom Frame Assembler 10/04/2005 Latest Code Status on File Code [...] Discussed due to patient's condition Care Teams Engine Pilot Relationship Specialty Start Date End Date Leta Guerrier DO [address] [place] [address] PCP - General Family Medicine 08/12/17 documented as of this encounter
--- OUTSIDE RECORDS SUMMARY | 2023-08-18 04:22 | External Medical Summary | Summary of Care ---
Author Name Unknown Organization [facility] [address] [place] [address] Phone [phone] Care Team Providers Care Mannequin Decorator Name Role Phone Leta Guerrier DO Primary Care Provider Reason for Visit * Reason Onset Date Comments Encounter Created in Error 07/22/2023 Encounter Details Date Type Department Care Team (Late st Contact Info) Description 07/22/2023 Telephone Radiology, [facility] [address] [place] [address] Requisition, External Radiology [address] [place] [address] Encounter Created in Error Allergies Active Allergy Reactions Criticality Noted Date Comments Ciprofloxacin 02/05/2005 Rash, can't take with calcium Metronidazole Hcl 02/05/2005 metallic taste Niacin And Related 01/25/2010 Hives Oxybutynin 02/05/2005 Percocet 02/05/2005 Hallucinations Sulfa Antibiotics 09/09/2000 Bad taste Simvastatin 01/25/2010 documented as of this encounter (statuses as of 07/22/2023) Medications Medication Sig Dispensed Refills Start Date [...] as of this encounter (statuses as of 07/22/2023) Active Problems Problem Noted Date Diagnosed Date [...] as of this encounter (statuses as of 07/22/2023) Resolved Problems Problem Noted Date Diagnosed Date [...] as of this encounter (statuses as of 07/22/2023) Immunizations Name Administration Dates Next Due COVID-19 [...] on file documented as of this encounter Plan of Treatment Upcoming Encounters Date Type Department Care Team (Late st Contact Info) Description 11/26/2023 9:40 AM EDT Office Visit Family Practice [facility] [place] [facility] [address] [place] [address] Leta Guerrier, [address] [facility] [place] [address] Scheduled Procedures Name Priority Associated Diagnoses Date/Ti [...] this encounter Medical Devices Implanted Type Area Presser All Around Device Identifier Shelf Expiration Date Model / Serial / Lot Percutaneous Extension 2201bun - [id number] - [id number] Implanted:Qty: 1 on 07/13/2022 by Gideon Espino MD at OR [facility] Right: Back [employer] 09/11/2024 9009 / [id number] / Kit Tined Lead - [id number] - [id number] Implanted:Qty: 1 on 07/13/2022 by Gideon Espino MD at OR [facility] Right: Back [employer] 03/14/2025 1201 / [id number] / Neurostim Non Rechargeable - [id number] - [id number] Implanted:Qty: 1 on 07/20/2022 by Gideon Espino MD at OR [facility] N/A: Back [employer] 02/27/2023 4101 / [id number] / documented as of this encounter Advance Directives Documents on File Type Date Recorded Patient Lace Finisher Expl anation Power of Tour Agent 10/04/2005 Latest Code Status on File Code [...] Discussed due to patient's condition Care Teams Mannequin Decorator Relationship Specialty Start Date End Date Leta Guerrier DO [address] [place] [address] PCP - General Family Medicine 08/12/17 documented as of this encounter
--- OUTSIDE RECORDS SUMMARY | 2023-08-18 04:22 | External Medical Summary | Continuity of Care Document ---
Author Name Unknown Organization [facility], Address [address] [place] [address] Phone [phone] Social History Type Date Description Comments Sex Unknown Procedures Date Code Description Status 07/11/2023 46473 Therapy Proc 1/> Area 15Min Ea Completed 07/11/2023 55639 Therapy Proc, Neuromuscular Reeducation Of Movement Completed 07/10/2023 32433 Manual Distribution Manager 1/> Area 15 Min Each Region Completed 07/10/2023 88337 Therapy Proc, Neuromuscular Reeducation Of Movement Completed 07/10/2023 75475 Therapy Proc 1/> Area 15Min Ea Completed 07/04/2023 83654 Manual Distribution Manager 1/> Area 15 Min Each Region Completed 07/04/2023 84275 Therapy Proc, Neuromuscular Reeducation Of Movement Completed 07/04/2023 65324 Therapy Proc 1/> Area 15Min Ea Completed 06/26/2023 96870 Therapy Proc, Neuromuscular Reeducation Of Movement Completed 06/20/2023 63393 Therapy Proc 1/> Area 15Min Ea Completed 06/20/2023 25185 Therapy Proc, Neuromuscular Reeducation Of Movement Completed 06/20/2023 92248 Manual Distribution Manager 1/> Area 15 Min Each Region Completed 06/12/2023 02843 Manual Distribution Manager 1/> Area 15 Min Each Region Completed 06/12/2023 76622 Therapy Proc, Neuromuscular Reeducation Of Movement Completed 06/12/2023 07299 Therapy Proc 1/> Area 15Min Ea Completed 06/12/2023 41504 Hot/Cold Pack Completed 06/10/2023 52277 Manual Distribution Manager 1/> Area 15 Min Each Region Completed 06/10/2023 71444 Therapy Proc, Neuromuscular Reeducation Of Movement Completed 06/10/2023 09562 Therapy Proc 1/> Area 15Min Ea Completed 06/06/2023 43380 Physical Therapy Evaluation Low Complexity Completed 06/06/2023 67892 Manual Distribution Manager 1/> Area 15 Min Each Region Completed 06/06/2023 30007 Therapy Proc 1/> Area 15Min Ea Completed Medical Devices Description No Information Available Encounters Description No Information Available Assessments Date Code Description Provider 07/11/2023 M25.511 Pain in right shoulder Cristian Nogueira, DPT 07/10/2023 M25.511 Pain in right shoulder Diane Mazariegos, DPT 07/04/2023 M25.511 Pain in right shoulder Cristian Nogueira, DPT 07/01/2023 M25.511 Pain in right shoulder Diane Mazariegos, DPT 06/26/2023 M25.511 Pain in right shoulder Diane Mazariegos, DPT 06/20/2023 M25.511 Pain in right shoulder Diane Mazariegos, DPT 06/12/2023 M25.511 Pain in right shoulder Diane Mazariegos, DPT 06/10/2023 M25.511 Pain in right shoulder Diane Mazariegos, DPT 06/06/2023 M25.511 Pain in right shoulder Diane Mazariegos, DPT Plan of Treatment No Information Available Functional Status Description No Information Available Mental Status Description No Information Available Referrals Description No Information Available
--- OUTSIDE RECORDS SUMMARY | 2023-08-18 04:22 | External Medical Summary | Summary of Care ---
Author Name Unknown Organization [facility] Address [address] [facility] [place] [address] Phone [phone] Care Team Providers Care Chief Embalmer Name Role Phone Leta Guerrier DO Primary Care Provider Reason for Visit * Reason Onset Date Comments Appointment 08/10/2023 Encounter Details Date Type Department Care Team (Late st Contact Info) Description 08/10/2023 Telephone Radiology [address] [place] [address] Samra Trujillo TECH Appointment Allergies Active Allergy Reactions Criticality Noted Date Comments Ciprofloxacin 02/05/2005 Rash, can't take with calcium Metronidazole Hcl 02/05/2005 metallic taste Niacin And Related 01/25/2010 Hives Oxybutynin 02/05/2005 Percocet 02/05/2005 Hallucinations Sulfa Antibiotics 09/09/2000 Bad taste Simvastatin 01/25/2010 documented as of this encounter (statuses as of 08/10/2023) Medications Medication Sig Dispensed Refills Start Date [...] 05/30/2023 Sertraline HCl 100 MG Oral Tablet (Zoloft)Marieo ns:Major depressive disorder, single episode, in full [...] (take 45 min before MRI, must have lease purchase driver) for up to 1 dose. 1 Tablet 0 07/23/2023 Active documented as of this encounter (statuses as of 08/10/2023) Active Problems Problem Noted Date Diagnosed Date [...] as of this encounter (statuses as of 08/10/2023) Resolved Problems Problem Noted Date Diagnosed Date [...] as of this encounter (statuses as of 08/10/2023) Immunizations Name Administration Dates Next Due COVID-19 mRNA, LNP-s, No Pre serve, 2-Dose Series (eMagin) 02/22/2021,06/22/2020,06/01/2020 Pneumococcal Conjugate Vacc, 13 Valent (Prevnar) [...] encounter Miscellaneous Notes * Telephone Encounter - Samra Trujillo TECH - 08/10/2023 12:31 PM EDT Name: Gloria Obregon Do you have any of the following: Pacemaker, stents, heart valves, aneurysm clips? Stimulator Have you ever worked with metal or have you ever gotten metal in your eyes? No Have you had a colonoscopy in the last 30 days? No On dialysis? No Do you have any dermals or body piercing's? No or ? Do you wear an insulin pump or diabetic monitor? No No new tattoos NAKIA Samayoa documented in this encounter Plan of Treatment Upcoming Encounters Date Type Department Care Team (Late st Contact Info) Description 08/14/2023 9:00 AM EDT Imaging Radiology [address] 132 [facility] [place] [address] 08/14/2023 10:00 AM EDT Imaging Radiology [address], [place] 132 [facility] [place] [address] 08/14/2023 10:30 AM EDT Imaging Radiology [address], [place] 132 [facility] [place] [address] 08/30/2023 2:30 PM EDT Office Visit [facility] [place] [address] Jacqueline Baker PA-C [address] [place] [address] 11/26/2023 9:40 AM EDT Office Visit Family Practice [facility] [place] [address] [place] [address] Leta Guerrier, [address] [facility] [place] [address] Scheduled Procedures Name Priority Associated Diagnoses Date/Ti me COLONOSCOPY FLEXIBLE PROXIMAL DIAGNOSTIC Recall History of colon polyps Health Maintenance Due Date Last Done Comments Colonoscopy 02/25/2020 02/24/2018, 01/31, 10/27/2012, Additional history exists COVID-19 Vaccine ( season) 2022 02/22/2021, 06/22/2020, 06/01/2020 GFR 12/18/2023 12/17/2022, 12/30, 04/04/2021, Additional history exists Albumin/Creatinine Ratio 01/16/2025 01/16/2022 DXA Scan 05/15/2028 05/15/2021, 05/02, 06/15/2014, Additional history exists DTaP,Tdap,and Td Vaccines (3 - Td or Tdap) 09/29/2030 09/29/2020, 07/09/2008 Pneumococcal Vaccine: 65+ Years Completed 09/17/2016, 02/19/2011 RETIRED - COLONOSCOPY-EVERY 2 YRS AGES 18-100 Discontinued 02/24/2018, 02/24/2018, 10/27/2012, Additional history exists Zoster Vaccines Completed 02/04/2020, 10/01, 02/25/2012 Influenza Vaccine (FLU shot) Completed 02/05/2023, 01/30/2022, 01/20/2021, Additional history exists GARDASIL-HPV IMMUNIZATION SERIES Aged Out No longer eligible based on patient's age to complete this topic Hepatitis B Aged Out No longer eligi ble based on patient's age to complete this topic MENINGOCOCCAL (MENACTRA/MENVEO) Aged Out No longer eligible based on patient's age to complete this topic documented as of this encounter Medical Devices Implanted Type Area Passenger Locomotive Engineer Device Identifier Shelf Expiration Date Model / Serial / Lot Percutaneous Extension 2201bun - [id number] - [id number] Implanted:Qty: 1 on 07/13/2022 by Gideon Espino MD at OR [facility] Right: Back [employer] 09/11/2024 9009 / [id number] / Kit Tined Lead - [id number] - [id number] Implanted:Qty: 1 on 07/13/2022 by Gideon Espino MD at OR [facility] Right: Back [employer] 03/14/2025 1201 / [id number] / Neurostim Non Rechargeable - [id number] - [id number] Implanted:Qty: 1 on 07/20/2022 by Gideon Espino MD at OR [facility] N/A: Back [employer] 02/27/2023 4101 / [id number] / documented as of this encounter Advance Directives Documents on File Type Date Recorded Patient Masticator Expl anation Power of Business Insight And Analytics Manager 10/04/2005 Latest Code Status on File [...] Discussed due to patient's condition Care Teams Chief Embalmer Relationship Specialty Start Date End Date Leta Guerrier DO [address] [place] [address] PCP - General Family Medicine 08/12/17 documented as of this encounter
--- OUTSIDE RECORDS SUMMARY | 2023-08-18 04:22 | External Medical Summary | Summary of Care ---
Author Name Unknown Organization [facility] Address [address] [facility] [place] [address] Phone [phone] Care Team Providers Care Sustainability Purchasing Agent Name Role Phone Leta Guerrier DO Primary Care Provider Reason for Visit * Reason Onset Date Comments Order Request 07/18/2023 Pre-MRI x-ray Encounter Details Date Type Department Care Team (Late st Contact Info) Description 07/18/2023 Telephone [address] [place] [id number] Suzanne Jonas, RT (R) Order Request (Pre-MRI x-ray) Allergies Active Allergy Reactions Criticality Noted Date Comments Ciprofloxacin 02/05/2005 Rash, can't take with calcium Metronidazole Hcl 02/05/2005 metallic taste Niacin And Related 01/25/2010 Hives Oxybutynin 02/05/2005 Percocet 02/05/2005 Hallucinations Sulfa Antibiotics 09/09/2000 Bad taste Simvastatin 01/25/2010 documented as of this encounter (statuses as of 07/18/2023) Medications Medication Sig Dispensed Refills Start Date [...] as of this encounter (statuses as of 07/18/2023) Active Problems Problem Noted Date Diagnosed Date [...] as of this encounter (statuses as of 07/18/2023) Resolved Problems Problem Noted Date Diagnosed Date [...] as of this encounter (statuses as of 07/18/2023) Immunizations Name Administration Dates Next Due COVID-19 [...] 9:40 AM EDT Office Visit Family Practice [facility] [place] [address] [place] [address] Leta Guerrier DO [address] [place] [address] Scheduled Orders Name Type Priority Associated Diagnoses Orde r Schedule XR HIP BILAT 2 VIEWS INCLUDING AP OF PELVIS Medical Imaging Routine Encounter for imaging to screen for metal prior to MRI Expected: 07/18/2023, Expires: 08/16/2024 Scheduled Procedures Name Priority Associated Diagnoses Date/Ti [...] this encounter Medical Devices Implanted Type Area Software Project Manager Device Identifier Shelf Expiration Date Model / Serial / Lot Percutaneous Extension 2201bun - [id number] - [id number] Implanted:Qty: 1 on 07/13/2022 by Gideon Espino MD at [facility] Right: Back [employer] 09/11/2024 9009 / [id number] / Kit Tined Lead - [id number] - [id number] Implanted:Qty: 1 on 07/13/2022 by Gideon Espino MD at OR [facility] Right: Back [employer] 03/14/2025 1201 / [id number] / Neurostim Non Rechargeable - [id number] - [id number] Implanted:Qty: 1 on 07/20/2022 by Gideon Espino MD at OR [facility] N/A: Back [employer] 02/27/2023 4101 / [id number] / documented as of this encounter Visit Diagnoses Diagnosis Encounter for imaging to screen for metal prior to MRI- Primary Special screening for other specified conditions documented in this encounter Advance Directives Documents on File Type Date Recorded Patient Box Sorter Expl anation Power of Oceanology Teacher 10/04/2005 Latest Code Status on File Code [...] Discussed due to patient's condition Care Teams Sustainability Purchasing Agent Relationship Specialty Start Date End Date Leta Guerrier [place] [address] PCP - General Family Medicine 08/12/17 documented as of this encounter
--- OUTSIDE RECORDS SUMMARY | 2023-08-18 04:22 | External Medical Summary | Continuity of Care Document ---
Author Name Unknown Organization [facility], Address [address] [place] [address] Phone [phone] Social History Type Date Description Comments Sex Unknown Procedures Date Code Description Status 07/11/2023 63969 Therapy Proc 1/> Area 15Min Ea Completed 07/11/2023 21995 Therapy Proc, Neuromuscular Reeducation Of Movement Completed 07/10/2023 34723 Manual Web Programmer 1/> Area 15 Min Each Region Completed 07/10/2023 02413 Therapy Proc, Neuromuscular Reeducation Of Movement Completed 07/10/2023 77168 Therapy Proc 1/> Area 15Min Ea Completed 07/04/2023 27361 Manual Web Programmer 1/> Area 15 Min Each Region Completed 07/04/2023 33455 Therapy Proc, Neuromuscular Reeducation Of Movement Completed 07/04/2023 50748 Therapy Proc 1/> Area 15Min Ea Completed 06/26/2023 43150 Therapy Proc, Neuromuscular Reeducation Of Movement Completed 06/20/2023 86841 Therapy Proc 1/> Area 15Min Ea Completed 06/20/2023 74980 Therapy Proc, Neuromuscular Reeducation Of Movement Completed 06/20/2023 50503 Manual Web Programmer 1/> Area 15 Min Each Region Completed 06/12/2023 70898 Manual Web Programmer 1/> Area 15 Min Each Region Completed 06/12/2023 17972 Therapy Proc, Neuromuscular Reeducation Of Movement Completed 06/12/2023 45636 Therapy Proc 1/> Area 15Min Ea Completed 06/12/2023 12832 Hot/Cold Pack Completed 06/10/2023 69157 Manual Web Programmer 1/> Area 15 Min Each Region Completed 06/10/2023 94347 Therapy Proc, Neuromuscular Reeducation Of Movement Completed 06/10/2023 05685 Therapy Proc 1/> Area 15Min Ea Completed 06/06/2023 28204 Physical Therapy Evaluation Low Complexity Completed 06/06/2023 01335 Manual Web Programmer 1/> Area 15 Min Each Region Completed 06/06/2023 80226 Therapy Proc 1/> Area 15Min Ea Completed [...]
--- OUTSIDE RECORDS SUMMARY | 2023-08-18 04:22 | External Medical Summary | Continuity of Care Document ---
Author Name Unknown Organization [facility], Address [address] [place] [address] Phone [phone] Social History Type Date Description Comments Sex Unknown Procedures Date Code Description Status 07/01/2023 04022 Therapy Proc, Neuromuscular Reeducation Of Movement Completed 07/01/2023 81691 Therapy Proc 1/> Area 15Min Ea Completed 07/01/2023 12601 Manual Retirement Actuary 1/> Area 15 Min Each Region Completed 06/26/2023 19931 Therapy Proc, Neuromuscular Reeducation Of Movement Completed 06/20/2023 69585 Manual Retirement Actuary 1/> Area 15 Min Each Region Completed 06/20/2023 59284 Therapy Proc, Neuromuscular Reeducation Of Movement Completed 06/20/2023 69670 Therapy Proc 1/> Area 15Min Ea Completed 06/12/2023 35953 Therapy Proc, Neuromuscular Reeducation Of Movement Completed 06/12/2023 32792 Hot/Cold Pack Completed 06/12/2023 20374 Therapy Proc 1/> Area 15Min Ea Completed 06/12/2023 56434 Manual Retirement Actuary 1/> Area 15 Min Each Region Completed 06/10/2023 56172 Manual Retirement Actuary 1/> Area 15 Min Each Region Completed 06/10/2023 25080 Therapy Proc, Neuromuscular Reeducation Of Movement Completed 06/10/2023 51220 Therapy Proc 1/> Area 15Min Ea Completed 06/06/2023 21450 Physical Therapy Evaluation Low Complexity Completed 06/06/2023 00190 Manual Retirement Actuary 1/> Area 15 Min Each Region Completed 06/06/2023 58887 Therapy Proc 1/> Area 15Min Ea Completed Medical Devices Description No Information Available Encounters Description No Information Available Assessments Date Code Description Provider 07/01/2023 M25.511 Pain in right shoulder Diane Mazariegos DPT 06/26/2023 M25.511 Pain in right shoulder [...]
--- OUTSIDE RECORDS SUMMARY | 2023-08-18 04:22 | External Medical Summary | Continuity of Care Document ---
Author Name Unknown Organization [facility], Address [address] [place] [address] Phone [phone] Social History Type Date Description Comments Sex Unknown Procedures Date Code Description Status 07/04/2023 25667 Therapy Proc, Neuromuscular Reeducation Of Movement Completed 07/04/2023 49613 Therapy Proc 1/> Area 15Min Ea Completed 07/04/2023 11310 Manual Green Plumber 1/> Area 15 Min Each Region Completed 06/26/2023 89297 Therapy Proc, Neuromuscular Reeducation Of Movement Completed 06/20/2023 10999 Manual Green Plumber 1/> Area 15 Min Each Region Completed 06/20/2023 19288 Therapy Proc, Neuromuscular Reeducation Of Movement Completed 06/20/2023 71418 Therapy Proc 1/> Area 15Min Ea Completed 06/12/2023 74324 Therapy Proc, Neuromuscular Reeducation Of Movement Completed 06/12/2023 19211 Hot/Cold Pack Completed 06/12/2023 35805 Therapy Proc 1/> Area 15Min Ea Completed 06/12/2023 07590 Manual Green Plumber 1/> Area 15 Min Each Region Completed 06/10/2023 98852 Manual Green Plumber 1/> Area 15 Min Each Region Completed 06/10/2023 39637 Therapy Proc, Neuromuscular Reeducation Of Movement Completed 06/10/2023 52203 Therapy Proc 1/> Area 15Min Ea Completed 06/06/2023 36245 Physical Therapy Evaluation Low Complexity Completed 06/06/2023 40406 Manual Green Plumber 1/> Area 15 Min Each Region Completed 06/06/2023 02120 Therapy Proc 1/> Area 15Min Ea Completed Medical Devices Description No Information Available Encounters Description No Information Available Assessments Date Code Description Provider 07/04/2023 M25.511 Pain in right shoulder Cristian Nogueira DPT 07/01/2023 M25.511 Pain in right shoulder [...]
--- OUTSIDE RECORDS SUMMARY | 2023-08-18 04:23 | External Medical Summary | Summary of Care ---
Author Name Unknown Organization [facility] Address [address] [facility] [place] [address] Phone [phone] Care Team Providers Care Reinforcement Maker Name Role Phone Leta Guerrier DO Primary Care Provider Reason for Visit * Reason Onset Date Comments Advice 07/02/2023 Right Shoulder P ain Encounter Details Date Type Department Care Team (Late st Contact Info) Description 07/02/2023 Telephone Family Practice [facility] [address] [place] [address] Leta Guerrier DO 200 [facility] [place] [address] Advice (Right Shoulder Pain ) Allergies Active Allergy Reactions Criticality Noted Date Comments Ciprofloxacin 02/05/2005 Rash, can't take with calcium Metronidazole Hcl 02/05/2005 metallic taste Niacin And Related 01/25/2010 Hives Oxybutynin 02/05/2005 Percocet 02/05/2005 Hallucinations Sulfa Antibiotics 09/09/2000 Bad taste Simvastatin 01/25/2010 documented as of this encounter (statuses as of 07/04/2023) Medications Medication Sig Dispensed Refills Start Date [...] as of this encounter (statuses as of 07/04/2023) Active Problems Problem Noted Date Diagnosed Date [...] as of this encounter (statuses as of 07/04/2023) Resolved Problems Problem Noted Date Diagnosed Date [...] as of this encounter (statuses as of 07/04/2023) Immunizations Name Administration Dates Next Due COVID-19 mRNA, LNP-s, No Pre serve, 2-Dose Series (Magin) 02/22/2021,06/22/2020,06/01/2020 Influenza, Whole Virus 03/02/2002,2000,01/10/1999,01/25 Pneumococcal Conjugate Vacc, 13 Valent (Prevnar) 09/17/2016 Pneumococcal Polysaccharide PPV23 (Pneumovax) 02/19/2011 Season Influenza, Quad, PF, Adjuvanted, 65+ Yrs, IM (FLUAD) 01/15/2020 Seasonal Influenza, PF, 6 M & above, IM , (FluLaval or Fluzone) 01/24/2018,01/14/2017 Seasonal Influenza, Quadriva lent Hd (Fluzone Hd) 02/05/2023,01/30/2022,01/20/2021 Seasonal Influenza, Quadriva lent, No Preserve, IM 03/05/2016,03/14/2015 Seasonal Influenza, Split, I IV3, With Preserve, Inj 02/22/2014,01/26/2013,02/25/2012,02/07,01/25/2010,04/08/2009,01/23/2008 ,02/07/2007,02/07/2006,02/05/2005,12/31 Seasonal Influenza, Trivalen t, Adjuvanted, 65+ yrs [...] encounter Miscellaneous Notes * Telephone Encounter - Aydin Mcgill, MED ASSIST - 07/04/2023 10:48 AM EDT Phone call was made and a message was left instructing her that she can scrap picker her prescription. * Telephone Encounter - Leta Guerrier DO - 07/04/2023 9:12 AM EDT Recommend tylenol arthritis 1000mg 3-4 times per day plus meloxicam once daily * Telephone Encounter - Danyell Roberto OSA - 07/02/2023 2:27 PM EDT Patient c/o right shoulder pain, states she can't sleep, having a lot of pain, states she is physical therapy now but feels like it is not helping, unsure if it is making it worse. Unable to get an MRI until she tried physical therapy. However, using otc icy hot, bio freeze, patches, roll on with no relief. She is asking if you can order something for pain. [facility]. Unable to lift shoulder up states the pain is a 8 out of 10. documented in this encounter Plan of Treatment Upcoming Encounters Date Type Department Care Team (Late st Contact Info) Description 07/12/2023 11:00 AM EDT Office Visit Orthopaedics [facility] [address] [place] [address] Dong Vuong MD [address] [place] [address] 11/26/2023 9:40 AM EDT Office Visit [facility] 200 [facility] [place] [address] Leta Guerrier DO 200 [facility] [place] [address] Scheduled Procedures Name Priority Associated Diagnoses Date/Ti me COLONOSCOPY FLEXIBLE PROXIMAL DIAGNOSTIC Recall History of colon polyps Health Maintenance Due Date Last Done Comments COLONOSCOPY-EVERY 2 YRS AGES 18-100 02/25/2020 02/24/2018, 02/24/2018, 10/27/2012, Additional history exists COVID-19 Vaccine (2022- season) 2022 02/22/2021, 06/22/2020, 06/01/2020 Depression Screening 08/07/2023 08/06/2022 GFR 12/18/2023 12/17/2022, 12/30, 04/04/2021, Additional history [...] this encounter Medical Devices Implanted Type Area Aircraft Avionics Technician Device Identifier Shelf Expiration Date Model / Serial / Lot Percutaneous Extension 2201bun - [id number] - [id number] Implanted:Qty: 1 on 07/13/2022 by Gideon Espino MD at OR [facility] Right: Back [employer] 09/11/2024 9009 / [id number] / Kit Tined Lead - [id number] - [id number] Implanted:Qty: 1 on 07/13/2022 by Gideon Espino MD at OR [facility] Right: Back [employer] 03/14/2025 1201 / [id number] / Neurostim Non Rechargeable - [id number] - [id number] Implanted:Qty: 1 on 07/20/2022 by Gideon Espino MD at OR [facility] N/A: Back [employer] 02/27/2023 4101 / [id number] / documented as of this encounter Advance Directives Documents on File Type Date Recorded Patient Sports Instructor Expl anation Power of Stave Jointer 10/04/2005 Latest Code Status on File Code [...] Discussed due to patient's condition Care Teams Reinforcement Maker Relationship Specialty Start Date End Date Leta Guerrier DO [address] [place], [place] [address] PCP - General Family Medicine 08/12/17 documented as of this encounter
--- OUTSIDE RECORDS SUMMARY | 2023-08-18 04:23 | External Medical Summary | Summary of Care ---
Author Name Unknown Organization [facility] Address [address] [facility] [address] Phone [phone] Care Team Providers Care Clinical Lab Specialist Name Role Phone Leta Guerrier DO Primary Care Provider Reason for Visit * Reason Onset Date Comments Appointment 05/27/2023 Encounter Details Date Type Department Care Team (Late st Contact Info) Description 05/27/2023 Telephone Family Practice [facility] [address] [place] [address] Leta Guerrier DO 200 [facility] [place] [address] Appointment Allergies Active Allergy Reactions Criticality Noted Date Comments Ciprofloxacin 02/05/2005 Rash, can't take with calcium Metronidazole Hcl 02/05/2005 metallic taste Niacin And Related 01/25/2010 Hives Oxybutynin 02/05/2005 Percocet 02/05/2005 Hallucinations Sulfa Antibiotics 09/09/2000 Bad taste Simvastatin 01/25/2010 documented as of this encounter (statuses as of 07/01/2023) Medications Medication Sig Dispensed Refills Start Date [...] cold sores. 4 Tablet 11 05/27/2023 Active documented as of this encounter (statuses as of 07/01/2023) Active Problems Problem Noted Date Diagnosed Date [...] as of this encounter (statuses as of 07/01/2023) Resolved Problems Problem Noted Date Diagnosed Date [...] as of this encounter (statuses as of 07/01/2023) Immunizations Name Administration Dates Next Due COVID-19 mRNA, LNP-s, No Pre serve, 2-Dose Series (Bag Borrow or Steal) 02/22/2021,06/22/2020,06/01/2020 Influenza, Whole Virus 03/02/2002,2000,01/10/1999,01/25 Pneumococcal Conjugate [...] encounter Miscellaneous Notes * Telephone Encounter - Ruth Ortez OSA - 07/01/2023 4:21 PM EDT Letter sent * Telephone Encounter - Annabelle Gonzalez OSA - 06/27/2023 2:55 PM EDT Called patient and lmm * Telephone Encounter - Ruth Ortez OSA - 06/20/2023 3:05 PM EDT LmSALOME Beckwith 06/20/2023 3:05 PM * Telephone Encounter - Loree Cesar OSA - 05/27/2023 11:32 AM EST Pt needs to schedule a Colonoscopy Associated Diagnoses History of colon polyps [Z86.010] Positive colorectal cancer screening using Cologuard test [R19.5] Screen for colon cancer [Z12.11] Please contact pt to schedule appointment Thank You documented in this encounter Plan of Treatment Upcoming Encounters Date Type Department Care Team (Late st Contact Info) Description 07/12/2023 11:00 AM EDT Office Visit Orthopaedics [facility] [address] [place] [address] Dong Vuong MD [address] [place] [address] 11/26/2023 9:40 AM EDT Office Visit Family Practice [facility] 200 [facility] [place] [address] Leta Guerrier DO [address] [place], [place] [address] Scheduled Procedures Name Priority Associated Diagnoses Date/Ti me COLONOSCOPY FLEXIBLE PROXIMAL DIAGNOSTIC Recall History of colon polyps Health Maintenance Due Date Last Done Comments COLONOSCOPY-EVERY 2 YRS AGES 18-100 02/25/2020 02/24/2018, 02/24/2018, 10/27/2012, Additional history exists COVID-19 Vaccine ( season) 2022 02/22/2021, 06/22/2020, 06/01/2020 Depression Screening [...] this encounter Medical Devices Implanted Type Area Dimethylaniline Sulfator Operator Device Identifier Shelf Expiration Date Model / Serial / Lot Percutaneous Extension 2201bun - [id number] - [id number] Implanted:Qty: 1 on 07/13/2022 by Gideon Espino MD at OR [facility] Right: Back [employer] 09/11/2024 9009 / [id number] / Kit Tined Lead - [id number] - [id number] Implanted:Qty: 1 on 07/13/2022 by Gideon Espino MD at OR [facility] Right: Back [employer] 03/14/2025 1201 / [id number] / Neurostim Non Rechargeable - [id number] - [id number] Implanted:Qty: 1 on 07/20/2022 by Gideon Espino MD at OR [facility] N/A: Back [employer] 02/27/2023 4101 / [id number] / documented as of this encounter Advance Directives Documents on File Type Date Recorded Patient Quality Control Operator Expl anation Power of Logging Tractor Operator Swamp 10/04/2005 Latest Code Status on File Code [...] Discussed due to patient's condition Care Teams Clinical Lab Specialist Relationship Specialty Start Date End Date Leta Guerrier DO [address] [place] [address] PCP - General Family Medicine 08/12/17 documented as of this encounter
--- OUTSIDE RECORDS SUMMARY | 2023-08-18 04:23 | External Medical Summary | Summary of Care ---
Author Name Unknown Organization [facility] Address [address] [facility] [place] [address] Phone [phone] Care Team Providers Care Integration Solution Architect Name Role Phone Leta Guerrier DO Primary Care Provider Reason for Visit * Reason Onset Date Comments Advice 07/02/2023 Right Shoulder P ain Encounter Details Date Type Department Care Team (Late st Contact Info) Description 07/02/2023 Telephone Family Practice [facility] [address] [place] [address] Leta Guerrier DO 200 [facility] [place] [address] Advice (Right Shoulder Pain ) Allergies Active [...] mRNA, LNP-s, No Pre serve, 2-Dose Series (ClickScanShare) 02/22/2021,06/22/2020,06/01/2020 Pneumococcal Conjugate Vacc, 13 Valent (Prevnar) [...] encounter Miscellaneous Notes * Telephone Encounter - Leta Guerrier DO [...] if you can order something for pain. [facility]. Unable to lift shoulder up states the pain is a 8 out of 10. documented in this encounter Plan of Treatment Upcoming Encounters Date Type Department Care Team (Late st Contact Info) Description 07/12/2023 11:00 AM EDT Office Visit Orthopaedics [facility] [address] [place] [address] Dong Vuong MD [address] [place] [address] 11/26/2023 9:40 AM EDT Office Visit Family Practice [facility] [address] [place] [address] Leta Guerrier DO 200 [facility] [place] [address] Scheduled Procedures Name Priority Associated Diagnoses Date/Ti [...] this encounter Medical Devices Implanted Type Area Immigration Specialist Device Identifier Shelf Expiration Date Model / Serial / Lot Percutaneous Extension 2201bun - [id number] - [id number] Implanted:Qty: 1 on 07/13/2022 by Gideon Espino MD at OR [facility] Right: Back [employer] 09/11/2024 9009 / [id number] / Kit Tined Lead - [id number] - [id number] Implanted:Qty: 1 on 07/13/2022 by Gideon Espino MD at OR [facility] Right: Back [employer] 03/14/2025 1201 / [id number] / Neurostim Non Rechargeable - [id number] - [id number] Implanted:Qty: 1 on 07/20/2022 by Gideon Espino MD at OR [facility] N/A: Back [employer] 02/27/2023 4101 / [id number] / documented as of this encounter Advance Directives Documents on File Type Date Recorded Patient Diesel Lube Tech Expl anation Power of Electrical Construction Project Manager 10/04/2005 Latest Code Status on File [...] Discussed due to patient's condition Care Teams Integration Solution Architect Relationship Specialty Start Date End Date Leta Guerrier DO [address] [place] [address] PCP - General Family Medicine 08/12/17 documented as of this encounter
--- OUTSIDE RECORDS SUMMARY | 2023-08-18 04:23 | External Medical Summary | Continuity of Care Document ---
Author Name Unknown Organization [facility], Address [address] [place] [address] Phone [phone] Social History Type Date Description Comments Sex Unknown Procedures Date Code Description Status 06/20/2023 38030 Manual Screw Machine Operator 1/> Area 15 Min Each Region Completed 06/20/2023 51082 Therapy Proc, Neuromuscular Reeducation Of Movement Completed 06/20/2023 88138 Therapy Proc 1/> Area 15Min Ea Completed 06/12/2023 89672 Manual Screw Machine Operator 1/> Area 15 Min Each Region Completed 06/12/2023 03048 Therapy Proc, Neuromuscular Reeducation Of Movement Completed 06/12/2023 95935 Therapy Proc 1/> Area 15Min Ea Completed 06/12/2023 56095 Hot/Cold Pack Completed 06/10/2023 26459 Manual Screw Machine Operator 1/> Area 15 Min Each Region Completed 06/10/2023 66718 Therapy Proc, Neuromuscular Reeducation Of Movement Completed 06/10/2023 86592 Therapy Proc 1/> Area 15Min Ea Completed 06/06/2023 90161 Physical Therapy Evaluation Low Complexity Completed 06/06/2023 50465 Manual Screw Machine Operator 1/> Area 15 Min Each Region Completed 06/06/2023 87220 Therapy Proc 1/> Area 15Min Ea Completed Medical Devices Description No Information Available Encounters Description No Information Available Assessments Date Code Description Provider 06/20/2023 M25.511 Pain in right shoulder Diane [...]
--- OUTSIDE RECORDS SUMMARY | 2023-08-18 04:23 | External Medical Summary | Summary of Care ---
Author Name Unknown Organization [facility] Address [address] [facility] [place] [address] Phone [phone] Care Team Providers Care Investigation Specialist Name Role Phone Leta Guerrier DO Primary Care Provider Reason for Visit * Reason Onset Date Comments Advice 07/02/2023 Right Shoulder P ain Encounter Details Date Type Department Care Team (Late st Contact Info) Description 07/02/2023 Telephone Family Practice [facility] [address] [place] [address] Leta Guerrier DO 200 [facility] [place] [address] Advice (Right Shoulder Pain ) Allergies Active [...] mRNA, LNP-s, No Pre serve, 2-Dose Series (Alfred) 02/22/2021,06/22/2020,06/01/2020 Pneumococcal Conjugate Vacc, 13 Valent (Prevnar) [...] if you can order something for pain. [facility]. Unable to lift shoulder up states the pain is a 8 out of 10. documented in this encounter Plan of Treatment Upcoming Encounters Date Type Department Care Team (Late st Contact Info) Description 07/12/2023 11:00 AM EDT Office Visit Orthopaedics [facility] [address] [place] [address] Dong Vuong MD [address] [place] [address] 11/26/2023 9:40 AM EDT Office Visit Family Practice [facility] [address] [facility] [place] [address] Leta Guerrier DO 200 [facility] [place] [address] Scheduled Procedures Name Priority Associated Diagnoses Date/Ti [...] this encounter Medical Devices Implanted Type Area Children'S Book Author Device Identifier Shelf Expiration Date Model / Serial / Lot Percutaneous Extension 2201bun - [id number] - [id number] Implanted:Qty: 1 on 07/13/2022 by Gideon Espino MD at OR [facility] Right: Back [employer] 09/11/2024 9009 / [id number] / Kit Tined Lead - [id number] - [id number] Implanted:Qty: 1 on 07/13/2022 by Gideon Espino MD at OR [facility] Right: Back [employer] 03/14/2025 1201 / [id number] / Neurostim Non Rechargeable - [id number] - [id number] Implanted:Qty: 1 on 07/20/2022 by Gideon Espino MD at OR [facility] N/A: Back [employer] 02/27/2023 4101 / [id number] / documented as of this encounter Advance Directives Documents on File Type Date Recorded Patient Cotton Washer Expl anation Power of Care Team Coordinator Scheduler 10/04/2005 Latest Code Status on File Code [...] Discussed due to patient's condition Care Teams Investigation Specialist Relationship Specialty Start Date End Date Leta Guerrier DO [address] [place] [address] PCP - General Family Medicine 08/12/17 documented as of this encounter
--- OUTSIDE RECORDS SUMMARY | 2023-08-18 04:23 | External Medical Summary | Summary of Care ---
Author Name Unknown Organization [facility] [address] [facility] [address] Phone [phone] Care Team Providers Care General Utility Worker Name Role Phone Leta Guerrier DO Primary Care Provider Reason for Visit * Reason Onset Date Comments Health Maintenance 07/04/2023 Encounter Details Date Type Department Care Team (Late st Contact Info) Description 07/04/2023 Telephone Family Practice [facility] [address] [place] [address] Leta Guerrier DO [address] [place] [address] Health Maintenance Allergies Active Allergy Reactions Criticality Noted Date [...] mRNA, LNP-s, No Pre serve, 2-Dose Series (Pelago) 02/22/2021,06/22/2020,06/01/2020 Influenza, Whole Virus 03/02/2002,2000,01/10/1999,01/25 Pneumococcal Conjugate [...] encounter Miscellaneous Notes * Telephone Encounter - Vicenta Sinha LPN - 07/04/2023 3:01 PM EDT Care Gaps Comprehensive Care Outreach Last Office/Telemedicine Visit: 05/27/2023 (in office), Visit date not found (telemedicine) Next Office Visit: 11/26/2023 Hemoglobin AIC Results: No results found for: "HEMOGLOBIN A1C" BP Readings from Last 1 Encounters: 05/30/23 138/50 Reviewed Health Maintenance below: Health Maintenance Topic Date Due COLONOSCOPY-EVERY 2 YRS AGES 18-100 02/25/2020 COVID-19 Vaccine () 11/30/2022 Depression Screening 08/07/2023 GFR 12/18/2023 Colon she was sent a letter June 30 from endo they are trying to schedule her Care Gap Outreach Action Taken: Left message documented in this encounter Plan of Treatment Upcoming Encounters Date Type Department Care Team (Late st Contact Info) Description 07/12/2023 11:00 AM EDT Office Visit Orthopaedics [facility] [address] [place] [address] Dong Vuong MD [address] [place] [address] 11/26/2023 9:40 AM EDT Office Visit [facility] [address] Leta Gu[facility]rier DO 200 [facility] [place] [address] Scheduled Procedures Name Priority Associated Diagnoses Date/Ti [...] this encounter Medical Devices Implanted Type Area Principal Gifts Officer Device Identifier Shelf Expiration Date Model / Serial / Lot Percutaneous Extension 2201bun - [id number] - [id number] Implanted:Qty: 1 on 07/13/2022 by Gideon Espino MD at OR [facility] Right: Back [employer] 09/11/2024 9009 / [id number] / Kit Tined Lead - [id number] - [id number] Implanted:Qty: 1 on 07/13/2022 by Gideon Espino MD at OR [facility] Right: Back [employer] 03/14/2025 1201 / [id number] / Neurostim Non Rechargeable - [id number] - [id number] Implanted:Qty: 1 on 07/20/2022 by Gideon Espino MD at OR [facility] N/A: Back [employer] 02/27/2023 4101 / [id number] / documented as of this encounter Advance Directives Documents on File Type Date Recorded Patient Lifter/Driver Expl anation Power of Patrol Driver 10/04/2005 Latest Code Status on File Code [...] Discussed due to patient's condition Care Teams General Utility Worker Relationship Specialty Start Date End Date Leta Guerrier DO [address] [place] [address] PCP - General Family Medicine 08/12/17 documented as of this encounter
--- OUTSIDE RECORDS SUMMARY | 2023-08-18 04:23 | External Medical Summary | Summary of Care ---
Author Name Unknown Organization [facility] Address [address] [facility] [place] [address] Phone [phone] Care Team Providers Care Machine Operator Slitter Technician Name Role Phone Leta Guerrier DO Primary Care Provider Reason for Visit * Reason Onset Date Comments Advice 07/02/2023 Right Shoulder P ain Encounter Details Date Type Department Care Team (Late st Contact Info) Description 07/02/2023 Telephone Family Practice [facility] [address] [place] [address] Leta Guerrier DO 200 [facility] [place] [address] Advice (Right Shoulder Pain ) Allergies Active [...] mRNA, LNP-s, No Pre serve, 2-Dose Series ([employer]) 02/22/2021,06/22/2020,06/01/2020 Pneumococcal Conjugate Vacc, 13 Valent (Prevnar) [...] if you can order something for pain. [facility]. Unable to lift shoulder up states the pain is a 8 out of 10. documented in this encounter Plan of Treatment Upcoming Encounters Date Type Department Care Team (Late st Contact Info) Description 07/12/2023 11:00 AM EDT Office Visit Orthopaedics [facility] [address] [place] [address] Dong Vuong MD [address] [place] [address] 11/26/2023 9:40 AM EDT Office Visit Family Practice [facility] [address] [facility] [place] [address] Leta Guerrier DO 200 [facility] [place] [address] Scheduled Procedures Name Priority Associated Diagnoses Date/Ti [...] this encounter Medical Devices Implanted Type Area Director Of Archives Device Identifier Shelf Expiration Date Model / Serial / Lot Percutaneous Extension 2201bun - [id number] - [id number] Implanted:Qty: 1 on 07/13/2022 by Gideon Espino MD at OR [facility] Right: Back [employer] 09/11/2024 9009 / [id number] / Kit Tined Lead - [id number] - [id number] Implanted:Qty: 1 on 07/13/2022 by Gideon Espino MD at OR [facility] Right: Back [employer] 03/14/2025 1201 / [id number] / Neurostim Non Rechargeable - [id number] - [id number] Implanted:Qty: 1 on 07/20/2022 by Gideon Espino MD at OR [facility] N/A: Back [employer] 02/27/2023 4101 / [id number] / documented as of this encounter Advance Directives Documents on File Type Date Recorded Patient Staking Press Operator Expl anation Power of Electronic Prepress Technician 10/04/2005 Latest Code Status on File Code [...] Discussed due to patient's condition Care Teams Machine Operator Slitter Technician Relationship Specialty Start Date End Date Leta Guerrier DO [address] [place] [address] PCP - General Family Medicine 08/12/17 documented as of this encounter
--- OUTSIDE RECORDS SUMMARY | 2023-08-18 04:23 | External Medical Summary | Continuity of Care Document ---
Author Name Unknown Organization [facility], Address [address] [place] [address] Phone [phone] Social History Type Date Description Comments Sex Unknown Procedures Date Code Description Status 06/26/2023 93355 Therapy Proc, Neuromuscular Reeducation Of Movement Completed 06/20/2023 29192 Manual Supervising Deputy 1/> Area 15 Min Each Region Completed 06/20/2023 76206 Therapy Proc, Neuromuscular Reeducation Of Movement Completed 06/20/2023 04234 Therapy Proc 1/> Area 15Min Ea Completed 06/12/2023 00468 Manual Supervising Deputy 1/> Area 15 Min Each Region Completed 06/12/2023 12621 Therapy Proc, Neuromuscular Reeducation Of Movement Completed 06/12/2023 13750 Therapy Proc 1/> Area 15Min Ea Completed 06/12/2023 13001 Hot/Cold Pack Completed 06/10/2023 87881 Manual Supervising Deputy 1/> Area 15 Min Each Region Completed 06/10/2023 44539 Therapy Proc, Neuromuscular Reeducation Of Movement Completed 06/10/2023 38328 Therapy Proc 1/> Area 15Min Ea Completed 06/06/2023 88833 Physical Therapy Evaluation Low Complexity Completed 06/06/2023 16140 Manual Supervising Deputy 1/> Area 15 Min Each Region Completed 06/06/2023 03475 Therapy Proc 1/> Area 15Min Ea Completed Medical Devices Description No Information Available Encounters Description No Information Available Assessments Date Code Description Provider 06/26/2023 M25.511 Pain in right shoulder Diane Mazariegos, DPT 06/20/2023 M25.511 Pain in right shoulder Diane Mazariegos, DPT 06/12/2023 M25.511 Pain in right shoulder Diane Mazariegos, DPT 06/10/2023 M25.511 Pain in right shoulder Diane Mazariegos, DPT 06/06/2023 M25.511 Pain in right shoulder Diane ashlee Mazariegos DPT Plan of Treatment No Information Available Functional Status Description No Information Available Mental Status Description No Information Available Referrals Description No Information Available
--- OUTSIDE RECORDS SUMMARY | 2023-08-18 04:23 | External Medical Summary | Summary of Care ---
Author Name Unknown Organization [facility] Address [address] [facility] [address] Phone [phone] Care Team Providers Care Linen Folder Name Role Phone Leta Guerrier DO Primary Care Provider Reason for Visit * Reason Onset Date Comments Health Maintenance 07/04/2023 Encounter Details Date Type Department Care Team (Late st Contact Info) Description 07/04/2023 Telephone Family Practice [facility] [address] [place] [address] Leta Guerrier DO [address] [place] [address] Health Maintenance Allergies Active Allergy Reactions Criticality [...] mRNA, LNP-s, No Pre serve, 2-Dose Series (Netformx) 02/22/2021,06/22/2020,06/01/2020 Influenza, Whole Virus 03/02/2002,2000,01/10/1999,01/25 Pneumococcal Conjugate [...] 07/12/2023 11:00 AM EDT Office Visit Orthopaedics [facility] [address] [place] [address] Dong Vuong MD [address] [place] [address] 11/26/2023 9:40 AM EDT Office Visit Family Practice [facility] [address] [facility] [address] Leta Guerrier DO 200 [place] [address] Scheduled Procedures Name Priority Associated Diagnoses Date/Ti [...] this encounter Medical Devices Implanted Type Area Food Porter Device Identifier Shelf Expiration Date Model / Serial / Lot Percutaneous Extension 2201bun - [id number] - [id number] Implanted:Qty: 1 on 07/13/2022 by Gideon Espino MD at OR [facility] Right: Back [employer] 09/11/2024 9009 / [id number] / Kit Tined Lead - [id number] - [id number] Implanted:Qty: 1 on 07/13/2022 by Gideon Espino MD at OR [facility] Right: Back [employer] 03/14/2025 1201 / [id number] / Neurostim Non Rechargeable - [id number] - [id number] Implanted:Qty: 1 on 07/20/2022 by Gideon Espino MD at OR [facility] N/A: Back [employer] 02/27/2023 4101 / [id number] / documented as of this encounter Advance Directives Documents on File Type Date Recorded Patient Nuclear Logging Engineer Expl anation Power of Casting House Worker 10/04/2005 Latest Code Status on File Code [...] Discussed due to patient's condition Care Teams Linen Folder Relationship Specialty Start Date End Date Leta Guerrier DO [address] [place] [address] PCP - General Family Medicine 08/12/17 documented as of this encounter
--- OUTSIDE RECORDS SUMMARY | 2023-08-18 04:24 | External Medical Summary | Summary of Care ---
Author Name Unknown Organization [facility] Address [address] [facility] [address] Phone [phone] Care Team Providers Care Stock Raiser Name Role Phone Leta Guerrier DO Primary Care Provider Reason for Visit * Reason Onset Date Comments Appointment 05/27/2023 Encounter Details Date Type Department Care Team (Late st Contact Info) Description 05/27/2023 Telephone Family Practice [facility] [address] [place] [address] Leta Guerrier DO 200 [facility] [place] [address] Appointment Allergies Active Allergy Reactions Criticality Noted Date Comments Ciprofloxacin 02/05/2005 Rash, can't take with calcium Metronidazole Hcl 02/05/2005 metallic taste Niacin And Related 01/25/2010 Hives Oxybutynin 02/05/2005 Percocet 02/05/2005 Hallucinations Sulfa Antibiotics 09/09/2000 Bad taste Simvastatin 01/25/2010 documented as of this encounter (statuses as of 06/27/2023) Medications Medication Sig Dispensed Refills Start Date [...] as of this encounter (statuses as of 06/27/2023) Active Problems Problem Noted Date Diagnosed Date [...] as of this encounter (statuses as of 06/27/2023) Resolved Problems Problem Noted Date Diagnosed Date [...] as of this encounter (statuses as of 06/27/2023) Immunizations Name Administration Dates Next Due COVID-19 mRNA, LNP-s, No Pre serve, 2-Dose Series ([employer]) 02/22/2021,06/22/2020,06/01/2020 Influenza, Whole Virus 03/02/2002,2000,01/10/1999,01/25 Pneumococcal Conjugate [...] encounter Miscellaneous Notes * Telephone Encounter - Annabelle Gonzalez OSA - 06/27/2023 2:55 PM EDT Called patient and lmm * Telephone Encounter - Ruth Ortez OSA - 06/20/2023 3:05 PM EDT Lmm SALOME Mcintyre 06/20/2023 3:05 PM * Telephone Encounter - [...] Visit Orthopaedics [facility] [address] [place] [address] Dong Vuong MD [address] [place] [address] 11/26/2023 9:40 AM EDT Office Visit Family Practice [facility] [address] [facility] [place] [address] Leta Guerrier DO [address] [facility] [place] [address] Scheduled Procedures Name Priority Associated Diagnoses Date/Ti [...] this encounter Medical Devices Implanted Type Area Hardwood Floor Layer Device Identifier Shelf Expiration Date Model / Serial / Lot Percutaneous Extension 2201bun - [id number] - [id number] Implanted:Qty: 1 on 07/13/2022 by Gideon Espino MD at OR [facility] Right: Back [employer] 09/11/2024 9009 / [id number] / Kit Tined Lead - [id number] - [id number] Implanted:Qty: 1 on 07/13/2022 by Gideon Espino MD at OR [facility] Right: Back [employer] 03/14/2025 1201 / [id number] / Neurostim Non Rechargeable - [id number] - [id number] Implanted:Qty: 1 on 07/20/2022 by Gideon Espino MD at OR [facility] N/A: Back [employer] 02/27/2023 4101 / [id number] / documented as of this encounter Advance Directives Documents on File Type Date Recorded Patient Bearing Grinder Expl anation Power of Collections Associate 10/04/2005 Latest Code Status on File Code [...] Discussed due to patient's condition Care Teams Stock Raiser Relationship Specialty Start Date End Date Leta Guerrier DO [address] [place] [address] PCP - General Family Medicine 08/12/17 documented as of this encounter
--- OUTSIDE RECORDS SUMMARY | 2023-08-18 04:24 | External Medical Summary | Summary of Care ---
Author Name Unknown Organization [facility] Address [address] [facility] [address] Phone [phone] Care Team Providers Care Jacker Feeder Name Role Phone Leta Guerrier DO Primary Care Provider Reason for Visit * Reason Onset Date Comments Appointment 05/27/2023 Encounter Details Date Type Department Care Team (Late st Contact Info) Description 05/27/2023 Telephone Family Practice [facility] [address] [place] [address] Leta Guerrier DO [address] [facility] [facility] [place] [address] Appointment Allergies Active Allergy Reactions Criticality Noted Date Comments Ciprofloxacin 02/05/2005 Rash, can't take with calcium Metronidazole Hcl 02/05/2005 metallic taste Niacin And Related 01/25/2010 Hives Oxybutynin 02/05/2005 Percocet 02/05/2005 Hallucinations Sulfa Antibiotics 09/09/2000 Bad taste Simvastatin 01/25/2010 documented as of this encounter (statuses as of 06/20/2023) Medications Medication Sig Dispensed Refills Start Date [...] as of this encounter (statuses as of 06/20/2023) Active Problems Problem Noted Date Diagnosed Date [...] as of this encounter (statuses as of 06/20/2023) Resolved Problems Problem Noted Date Diagnosed Date [...] as of this encounter (statuses as of 06/20/2023) Immunizations Name Administration Dates Next Due COVID-19 mRNA, LNP-s, No Pre serve, 2-Dose Series (Cerac) 02/22/2021,06/22/2020,06/01/2020 Influenza, Whole Virus 03/02/2002,2000,01/10/1999,01/25 Pneumococcal Conjugate [...] Ortez OSA - 06/20/2023 3:05 PM EDT SALOME Luu 06/20/2023 3:05 PM * Telephone Encounter - [...] 07/12/2023 11:00 AM EDT Office Visit Orthopaedics [facility] [address] [place] [address] Dong Vuong MD [address] [place] [address] 11/26/2023 9:40 AM EDT Office Visit Family Practice [facility] [address] [facility] [place] [address] Leta Guerrier, [address] [facility] [place] [address] Scheduled Procedures Name Priority Associated Diagnoses Date/Ti [...] this encounter Medical Devices Implanted Type Area Java Developer Analyst Device Identifier Shelf Expiration Date Model / Serial / Lot Percutaneous Extension 2201bun - [id number] - [id number] Implanted:Qty: 1 on 07/13/2022 by Gideon Espino MD at OR [facility] Right: Back [employer] 09/11/2024 9009 / [id number] / Kit Tined Lead - [id number] - [id number] Implanted:Qty: 1 on 07/13/2022 by Gideon Espino MD at OR [facility] Right: Back [employer] 03/14/2025 1201 / [id number] / Neurostim Non Rechargeable - [id number] - [id number] Implanted:Qty: 1 on 07/20/2022 by Gideon Espino MD at OR [facility] N/A: Back [employer] 02/27/2023 4101 / [id number] / documented as of this encounter Advance Directives Documents on File Type Date Recorded Patient Hat Ironer Expl anation Power of Perforator 10/04/2005 Latest Code Status on File Code [...] Discussed due to patient's condition Care Teams Jacker Feeder Relationship Specialty Start Date End Date Leta Guerrier DO [address] [place] [address] PCP - General Family Medicine 08/12/17 documented as of this encounter
--- OUTSIDE RECORDS SUMMARY | 2023-08-18 04:24 | External Medical Summary | Summary of Care ---
Author Name Unknown Organization [facility] Address [address] [facility] [place] [address] Phone [phone] Care Team Providers Care Rn Hemo Dialysis Name Role Phone Leta Guerrier DO Primary Care Provider Reason for Visit * Reason Onset Date Comments Med Request 06/14/2023 Encounter Details Date Type Department Care Team (Late st Contact Info) Description 06/14/2023 Telephone Orthopaedics [facility] [address] [place] [address] SharerLinda PA-C [address] [place] [address] Med Request Allergies Active Allergy Reactions Criticality Noted Date Comments Ciprofloxacin 02/05/2005 Rash, can't take with calcium Metronidazole Hcl 02/05/2005 metallic taste Niacin And Related 01/25/2010 Hives Oxybutynin 02/05/2005 Percocet 02/05/2005 Hallucinations Sulfa Antibiotics 09/09/2000 Bad taste Simvastatin 01/25/2010 documented as of this encounter (statuses as of 06/18/2023) Medications Medication Sig Dispensed Refills Start Date [...] as of this encounter (statuses as of 06/18/2023) Active Problems Problem Noted Date Diagnosed Date [...] as of this encounter (statuses as of 06/18/2023) Resolved Problems Problem Noted Date Diagnosed Date [...] as of this encounter (statuses as of 06/18/2023) Immunizations Name Administration Dates Next Due COVID-19 mRNA, LNP-s, No Pre serve, 2-Dose Series (Giftbar) 02/22/2021,06/22/2020,06/01/2020 Pneumococcal Conjugate Vacc, 13 Valent (Prevnar) [...] encounter Miscellaneous Notes * Telephone Encounter - Justina Curiel MED ASSIST - 06/18/2023 9:20 AM EDT Called and left message for patient to return call. * Telephone Encounter - Adalberto Ferraro OSA - 06/14/2023 5:05 PM EDT Patient calling in regarding request below. Please advise. * Telephone Encounter - Yessica Emmanuel PHARM Tech - 06/14/2023 11:53 AM EDT Pt calling to request medication for pain in right shoulder. Pt states at 05/31/23 issue was discussed, xrays taken and pt has tried PT but states only making shoulder worse. Please advise and submit rx if appropriate. Thanks, Yessica Emmanuel Vocational Case Manager [facility] ([facility]) (formerly Telepharmacy) 06/14/2023,11:54 AM documented in this encounter Plan of Treatment Upcoming Encounters Date Type Department Care Team (Late st Contact Info) Description 07/12/2023 11:00 AM EDT Office Visit Orthopaedics [facility] [address] [place] [address] Dong Vuong MD [address] [place] [address] 11/26/2023 9:40 AM EDT Office Visit Family Practice [facility] [address] [facility] [place] [address] Leta Guerrier DO [address] [facility] [place] [address] Scheduled Procedures Name Priority Associated Diagnoses Date/Ti [...] this encounter Medical Devices Implanted Type Area Front Office Developer Device Identifier Shelf Expiration Date Model / Serial / Lot Percutaneous Extension 2201bun - [id number] - [id number] Implanted:Qty: 1 on 07/13/2022 by Gideon Espino MD at OR [facility] Right: Back [employer] 09/11/2024 9009 / [id number] / Kit Tined Lead - [id number] - [id number] Implanted:Qty: 1 on 07/13/2022 by Gideon Espino MD at OR [facility] Right: Back [employer] 03/14/2025 1201 / [id number] / Neurostim Non Rechargeable - [id number] - [id number] Implanted:Qty: 1 on 07/20/2022 by Gideon Espino MD at OR [facility] N/A: Back [employer] 02/27/2023 4101 / [id number] / documented as of this encounter Advance Directives Documents on File Type Date Recorded Patient Esthetician/Skin Therapist Expl anation Power of Iron Miner 10/04/2005 Latest Code Status on File Code [...] Discussed due to patient's condition Care Teams Rn Hemo Dialysis Relationship Specialty Start Date End Date Leta Guerrier DO [address] [place] [address] PCP - General Family Medicine 08/12/17 documented as of this encounter
--- OUTSIDE RECORDS SUMMARY | 2023-08-18 04:24 | External Medical Summary | Continuity of Care Document ---
Author Name Unknown Organization [facility], Address [address] [place] [address] Phone [phone] Social History Type Date Description Comments Sex Unknown Procedures Date Code Description Status 06/12/2023 78869 Manual On Site Soil Evaluator 1/> Area 15 Min Each Region Completed 06/12/2023 94393 Therapy Proc, Neuromuscular Reeducation Of Movement Completed 06/12/2023 33643 Therapy Proc 1/> Area 15Min Ea Completed 06/12/2023 96154 Hot/Cold Pack Completed 06/10/2023 79924 Manual On Site Soil Evaluator 1/> Area 15 Min Each Region Completed 06/10/2023 30906 Therapy Proc, Neuromuscular Reeducation Of Movement Completed 06/10/2023 96570 Therapy Proc 1/> Area 15Min Ea Completed 06/06/2023 96297 Physical Therapy Evaluation Low Complexity Completed 06/06/2023 51355 Manual On Site Soil Evaluator 1/> Area 15 Min Each Region Completed 06/06/2023 18027 Therapy Proc 1/> Area 15Min Ea Completed Medical Devices Description No Information Available Encounters Description No Information Available Assessments Date Code Description Provider 06/12/2023 M25.511 Pain in right shoulder Diane Mazariegos, DPT 06/10/2023 M25.511 Pain in right shoulder Diane Mazariegos, DPT 06/06/2023 M25.511 Pain in right shoulder Diane ashlee Mazariegos, DPT Plan of Treatment No Information Available Functional Status Description No Information Available Mental Status Description No Information Available Referrals Description No Information Available
--- OUTSIDE RECORDS SUMMARY | 2023-08-18 04:24 | External Medical Summary | Summary of Care ---
Author Name Unknown Organization [facility] Address [address] [facility] [place] [address] Phone [phone] Care Team Providers Care Repair Welder Name Role Phone Leta Guerrier DO Primary Care Provider Reason for Visit * Reason Onset Date Comments Med Request 06/14/2023 Encounter Details Date Type Department Care Team (Late st Contact Info) Description 06/14/2023 Telephone Orthopaedics [facility] [address] [place] [address] SharerLinda PA-C [address] [place] [address] Med Request Allergies Active Allergy Reactions Criticality [...] mRNA, LNP-s, No Pre serve, 2-Dose Series (Kapture Audio) 02/22/2021,06/22/2020,06/01/2020 Influenza, Whole Virus 03/02/2002,2000,01/10/1999,01/25 Pneumococcal Conjugate [...] encounter Miscellaneous Notes * Telephone Encounter - Sania Salazar OSA - 06/18/2023 9:40 AM EDT Patient returning call, stated she is already doing tylenol and a similar patch to the salonpas. Ptstated she will just continue doing that until her appt next month. * Telephone Encounter - Justina Curiel MED [...] submit rx if appropriate. Thanks, Yessica Emmanuel Fire Control System Installer [facility] ([facility]) (formerly Telepharmacy) 06/14/2023,11:54 AM documented in this encounter Plan of Treatment Upcoming Encounters Date Type Department Care Team (Late st Contact Info) Description 07/12/2023 11:00 AM EDT Office Visit Orthopaedics [facility] [address] [place] [address] Dong Vuong MD [address] [place] [address] 11/26/2023 9:40 AM EDT Office Visit Family Practice [facility] [address] [place] [address] Leta Guerrier DO [address] [place] [address] Scheduled Procedures Name Priority Associated Diagnoses Date/Ti me COLONOSCOPY FLEXIBLE PROXIMAL DIAGNOSTIC Recall History of colon polyps Health Maintenance Due Date Last Done Comments COLONOSCOPY-EVERY 2 YRS AGES 18-100 02/25/2020 02/24/2018, 02/24/2018, 10/27/2012, Additional history exists COVID-19 Vaccine ( - season) 2022 02/22/2021, 06/22/2020, 06/01/2020 Depression Screening [...] this encounter Medical Devices Implanted Type Area Supervisor Cook House Device Identifier Shelf Expiration Date Model / Serial / Lot Percutaneous Extension 2201bun - [id number] - [id number] Implanted:Qty: 1 on 07/13/2022 by Gideon Espino MD at OR [facility] Right: Back [employer] 09/11/2024 9009 / [id number] / Kit Tined Lead - [id number] - [id number] Implanted:Qty: 1 on 07/13/2022 by Gideon Espino MD at OR [facility] Right: Back [employer] 03/14/2025 1201 / [id number] / Neurostim Non Rechargeable - [id number] - [id number] Implanted:Qty: 1 on 07/20/2022 by Gideon Espino MD at OR [facility] N/A: Back [employer] 02/27/2023 4101 / [id number] / documented as of this encounter Advance Directives Documents on File Type Date Recorded Patient Consulting Technical Director Expl anation Power of Repairer [employer]ge[employer] 10/04/2005 Latest Code Status on File Code [...] Discussed due to patient's condition Care Teams Repair Welder Relationship Specialty Start Date End Date Leta Guerrier DO [address] [place] [address] PCP - General Family Medicine 08/12/17 documented as of this encounter
--- OUTSIDE RECORDS SUMMARY | 2023-08-18 04:24 | External Medical Summary | Continuity of Care Document ---
Author Name Unknown Organization [facility], Address [address] [place] [address] Phone [phone] Social History Type Date Description Comments Sex Unknown Procedures Date Code Description Status 06/10/2023 44713 Manual Director Of Cardiac Rehabilitation 1/> Area 15 Min Each Region Completed 06/10/2023 30132 Therapy Proc, Neuromuscular Reeducation Of Movement Completed 06/10/2023 37793 Therapy Proc 1/> Area 15Min Ea Completed 06/06/2023 60254 Physical Therapy Evaluation Low Complexity Completed 06/06/2023 15335 Manual Director Of Cardiac Rehabilitation 1/> Area 15 Min Each Region Completed 06/06/2023 67241 Therapy Proc 1/> Area 15Min Ea Completed Medical Devices Description No Information Available Encounters Description No Information Available Assessments Date Code Description Provider 06/10/2023 M25.511 Pain in right shoulder Diane Mazariegos DPT 06/06/2023 M25.511 Pain in right shoulder Diane Mazariegos DPT Plan of Treatment No Information Available Functional Status Description No Information Available Mental Status Description No Information Available Referrals Description No Information Available
[2023-08-18] MEDS: amLODIPine BESYLATE 5 MG TAB PO ONE (05:23)
[2023-08-18 07:23] LABS: Basophils # (auto) 0.03 K/uL (0.00-0.20); Basophils % (auto) 0.5 %; Eosinophils # (auto) 0.03 K/uL (0.00-0.50); Eosinophils % (auto) 0.5 %; Hematocrit (blood only) 36.6 % (37.0-47.0); Hemoglobin 11.9 g/dl (12.0-16.0); Immature Granulocytes # (auto) 0.02 K/uL (0.01-0.20); Immature Granulocytes % (auto) 0.3 %; Lymphocytes # (auto) 0.81 K/uL (1.20-3.40); Lymphocytes % (auto) 13.3 %; Mean Corpuscular Hemoglobin 30.5 pg (25.0-34.0); Mean Corpuscular Hgb Conc 32.5 g/dL (32.0-36.0); Mean Corpuscular Volume 93.8 fL (80.0-100.0); Mean Platelet Volume 8.8 fL (9.4-12.4); Monocytes % (auto) 9.9 %; Neutrophils % (auto) 75.5 %; Platelet Count 151 K/uL (130-400); RDW Coefficient of Variation 14.2 % (11.5-14.5); White Blood Count 6.09 K/ul (4.8-10.8)
--- NOTE | 2023-08-18 07:24 | Orthopedic Consultation ---
Date of Service August 18, 2023 Assessment & Plan (1) Right shoulder pain: 78-year-old female with a 3 to 4-month history of right shoulder pain consistent with rotator cuff pathology. She has failed physical therapy. She had an MRI done at [facility] but we do not have the results to that. Plan: Diagnosis discussed treatment options with the patient. Certainly therapy was reasonable. If this continues to bother the neck step would likely be a subacromial injection. We will try to get the MRI results from [facility] on Saturday. Will will order up a shoulder injection provide that for her tomorrow. Any orthopedic questions can be directed at [phone]. (2) Disorder of right rotator cuff: History of Present Illness Reason for Consultation: . Right shoulder pain Requesting Physician: . Attending Physician: Maia Lraa MD . Patient is a 78-year-old [id number] female who is admitted for abdominal pain and possible kidney stone. She also reports about a 3-month history of right shoulder pain and discomfort. She seen Brigitte Vuong at [facility] and [facility]. She has been through some physical therapy locally without much relief. She describes mostly deltoid type pain. No numbness. It does radiate up into her neck and down her arm to some degree. She had an MRI done at [facility] recently. We do not have the results to that. Allergies Allergy/AdvReac Type Severity Reaction Status Date / Time ciprofloxacin Allergy Intermediate RASH, CAN Verified 08/18/23 01:45 NOT TAKE WITH CALCIUM niacin Allergy Intermediate Hives Verified 08/18/23 01:45 oxybutynin Allergy Unknown ON [facility] MED Verified 08/18/23 01:45 LIST simvastatin [From Zocor] Allergy Unknown ON [facility] MED Verified 08/18/23 01:45 LIST metronidazole AdvReac Intermediate METALLIC Verified 08/18/23 01:45 TASTE oxycodone [From Percocet] AdvReac Intermediate HALLUCINATI Verified 08/18/23 01:45 ONS Sulfa (Sulfonamide AdvReac Intermediate BAD TASTE Verified 08/18/23 01:45 Antibiotics) IN MOUTH Home Medications Medication Instructions Recorded Confirmed Type acetaminophen 500 mg tablet 1,000 mg PO Q6H PRN Pain 09/03/22 08/18/23 History (Tylenol Extra Strength) amlodipine 2.5 mg tablet 2.5 mg PO HS 09/03/22 08/18/23 History lisinopril 20 mg tablet 20 mg PO QAM 09/03/22 08/18/23 History metoprolol tartrate 50 mg tablet 50 mg PO BID 09/03/22 08/18/23 History sertraline 100 mg tablet 100 mg PO QAM 09/03/22 08/18/23 History ibuprofen 200 mg tablet 400 mg PO Q6H PRN Fever Or Pain 08/18/23 08/18/23 Histor y rosuvastatin 5 mg tablet 5 mg PO QPM 08/18/23 08/18/23 History Past Med/Surg History Problem List (Updated 08/18/23 @ 07:26 by Gideon Angel MD) Disorder of right rotator cuff Right shoulder pain Abdominal pain Calculus of proximal left ureter (Acute) Diverticulitis (Acute) Left sided abdominal pain (Acute) Medical History HLD (hyperlipidemia) HTN (hypertension) Family History Other No pertinent family history Social History Smoking Status: Never smoker Second Hand Exposure: No; Do You Dip or Chew Tobacco: No; Tobacco Cessation Education Requested by Patient: No Hx Alcohol Use: No Hx Substance Use: No Preferred Language: Italian Communication Ability: Effective Hearing Ability: Normal Commercial Crabber Required: No Beliefs That Will Affect Care: None Current Living Situation: Alone Current Living Situation Comment: son rajni lives next door current occupational status: retired Other Information That Helps Us Care for You: No Feels Safe at Home: Yes Safety Concerns: Feels Safe At This Time Assistive Devices: None Review of Systems All systems reviewed & are unremarkable except as noted in HPI & below. Physical Exam . Physical exam shows a pleasant elderly female. She is sitting up in bed looks reasonably comfortable. Examination of the right shoulder reveals a pain patch on the shoulder itself. There is no visible atrophy. She can elevate her arm to about 1 8060 degrees. Motor strength is 4/5. Got brisk refill. No particular stiffness. Results & Data Results & Data Laboratory Results . Diagnostic Findings . PG Care Time/CCT Total # of Minutes Spent Total Time Spent with Patient: Total time spent is greater than 50% in coordination of care (as documented) at patient's floor/unit and/or counseling patient: Coding Level of Care Code 58369 IN/OBS CONSULT LVL 3,45M Diagnoses Right shoulder pain M25.511 Disorder of right rotator cuff M67.911
--- NOTE | 2023-08-18 08:04 | Urology Consultation ---
Date of Consultation August 18, 2023 Assessment & Plan (1) Calculus of proximal left ureter: 78-year-old female admitted with abdominal pain the CT scan showed an 8 mm left proximal obstructing ureteral calculus Given that she is afebrile, pain is relatively well-controlled, and there is no concern for infection or SAV, there is no urgent indication for stent. That being said, I did offer her a stent as it is unlikely that she will pass that stone but she declined today. She would like to talk with her son and discuss further. I explained that I am not in the OR tomorrow and therefore cannot guarantee that she would get a stent tomorrow if she changed her mind. She expressed understanding Patient can have a diet from a urologic perspective I am not even certain if her pain is related to the stone or could be related to: Inflammation seen on CT scan Urology to reevaluate tomorrow. Please make n.p.o. at midnight in the event that she were to want a stent and one of my partners would be able to add her on. History of Present Illness Attending Physician: Maia Lara MD History of Present Illness 78-year-old female admitted for abdominal pain. Afebrile with stable vitals. Labs showed a white blood cell count of 6.09, hemoglobin 11.9, and creatinine of 0.68 which appears to be her baseline. Urinalysis showed some microscopic hematuria but otherwise negative. CT scan showed possible diverticulitis and an 8 mm left proximal ureteral calculus with mild hydronephrosis. Patient reports nonspecific abdominal pain but denies any flank or left lower quadrant pain. She is not interested in a procedure today. Allergies Allergy/AdvReac Type Severity Reaction Status Date / Time ciprofloxacin Allergy Intermediate RASH, CAN Verified 08/18/23 01:45 NOT TAKE WITH CALCIUM niacin Allergy Intermediate Hives Verified 08/18/23 01:45 oxybutynin Allergy Unknown ON [facility] MED Verified 08/18/23 01:45 LIST simvastatin [From Zocor] Allergy Unknown ON [facility] MED Verified 08/18/23 01:45 LIST metronidazole AdvReac Intermediate METALLIC Verified 08/18/23 01:45 TASTE oxycodone [From Percocet] AdvReac Intermediate HALLUCINATI Verified 08/18/23 01:45 ONS Sulfa (Sulfonamide AdvReac Intermediate BAD TASTE Verified 08/18/23 01:45 Antibiotics) IN MOUTH Home Medications Medication Instructions Recorded Confirmed Type acetaminophen 500 mg tablet 1,000 mg PO Q6H PRN Pain 09/03/22 08/18/23 History (Tylenol Extra Strength) amlodipine 2.5 mg tablet 2.5 mg PO HS 09/03/22 08/18/23 History lisinopril 20 mg tablet 20 mg PO QAM 09/03/22 08/18/23 History metoprolol tartrate 50 mg tablet 50 mg PO BID 09/03/22 08/18/23 History sertraline 100 mg tablet 100 mg PO QAM 09/03/22 08/18/23 History ibuprofen 200 mg tablet 400 mg PO Q6H PRN Fever Or Pain 08/18/23 08/18/23 History rosuvastatin 5 mg tablet 5 mg PO QPM 08/18/23 08/18/23 History Patient History Medical History HLD (hyperlipidemia) HTN (hypertension) Family History Other No pertinent family history Social History Smoking Status: Never smoker Second Hand Exposure: No; Do You Dip or Chew Tobacco: No; Tobacco Cessation Education Requested by Patient: No Hx Alcohol Use: No Hx Substance Use: No Preferred Language: Cypriot Communication Ability: Effective Hearing Ability: Normal Window Caser Required: No Beliefs That Will Affect Care: None Current Living Situation: Alone Current Living Situation Comment: son rajni lives next door current occupational status: retired Other Information That Helps Us Care for You: No Feels Safe at Home: Yes Safety Concerns: Feels Safe At This Time Assistive Devices: None Physical Exam Physical Exam: General: Alert and oriented, no acute distress HEENT: Normocephalic, mucous membranes moist Pulmonary: Nonlabored respirations Abdomen: Nondistended Extremities: Moves all 4 spontaneously Neuro: No gross deficits Skin: Warm, dry, no rashes noted Results & Data Vital Signs (Past 12 Hours) Vital Signs Temp Pulse Pulse Pulse Resp BP BP 08/18/23 07:23 36.5 C 76 18 131/66 08/18/23 04:01 36.4 C L 67 12 160/72 H 08/18/23 03:30 68 16 142/73 H 08/18/23 01:33 79 08/17/23 22:30 79 20 158/72 H 08/17/23 22:00 82 20 156/61 H 08/17/23 21:47 08/17/23 21:30 90 18 190/76 H 08/17/23 21:25 89 08/17/23 21:17 36.6 C 99 H 18 177/85 H Pulse Ox O2 Del Method 08/18/23 07:23 92 Room Air 08/18/23 04:01 96 Room Air 08/18/23 03:30 94 Room Air 08/18/23 01:33 08/17/23 22:30 93 08/17/23 22:00 94 08/17/23 21:47 96 Room Air 08/17/23 21:30 96 Room Air 08/17/23 21:25 08/17/23 21:17 96 Room Air PG Care Time/CCT Total # of Minutes Spent Total Time Spent with Patient: Total time spent is greater than 50% in coordination of care (as documented) at patient's floor/unit and/or counseling patient: Coding Level of Care Code 89675 INT INP/OBS CARE 2/55MIN Diagnoses Calculus of proximal left ureter N20.1
[2023-08-18 08:18] LABS: BUN Creatinine Ratio 22.1 (10-20); Calcium 9.7 mg/dl (8.6-10.3); Creatinine Clr Calc Pharmacy 62.7 ml/min; Est GFR (African American) 97.8 ml/min; Est GFR (Non-African American) 84.4 ml/min; Potassium 3.8 mmol/L (3.5-5.1)
[2023-08-18] MEDS: lisinopril 20 MG TAB PO SCH (08:19)
[2023-08-18] MEDS: METOPROLOL TARTRATE 50 MG TAB PO SCH (08:19)
[2023-08-18] MEDS: SERTRALINE HCL 100 MG TABLET PO SCH (08:20)
[2023-08-18] MEDS: PIPERACILLIN/TAZOBACTAM 4.5 GM in DEXTROSE 5% MINI-B 100 ML IV SCH (08:21)
[2023-08-18 08:58] LABS: Estimated Average Glucose 123 mg/dl; Hemoglobin A1C 5.9 % (4.5-5.6)
[2023-08-18] MEDS ORDERED: ENOXAPARIN INJ 40 MG/0.4 ML SYR SQ SCH ×2 (09:00)
--- NOTE | 2023-08-18 09:32 | Hospitalist Progress Note ---
Date of Service August 18, 2023 Assessment & Plan (1) Abdominal pain: Plan Pt is a 78yoF with PMHx significant for hypertension, hyperlipidemia, urge incontinence status post neurostimulator, diverticulosis, mood disorder, recent outpatient MRI findings of rotator cuff tear (07/2023) presenting with abdominal pain. Diverticulitis Obstructive Nephropathy Pt presented with abdominal pain Likely in setting of mild diverticulitis and obstructive uropathy CT abd/pelvis noting partially obstructing kidney stone and mild diverticulitis UA did not appear infectious, no urine Cx collected as a result Not currently septic Urology consulted, appreciate recs -pt offered stent, refusing at this time -NPO after midnight for possible addon tomorrow if needed Continue IV Zosyn Continue to monitor Right rotator cuff tear labral tear on outpatient MRI Orthopedics consulted, appreciate recs -considering injection Hypertension elevated secondary to discomfort Continue home amlodipine, lisinopril and metoprolol hyperlipidemia on statin Rx, continue urge incontinence status post neurostimulator mood disorder stable Prediabetes Hgba1c of 5.9 PCP followup DVT prophylaxis. SCDs Re: Possible procedure Full code Admission and Anticipated Discharge Date Admission Date: August 18, 2023 Subjective Pt was seen laying in bed. States that lower abdomen was painful, has not been able to eat. States that she is holding off on urological surgery for now. Notes that though feeling a little better, still not back to baseline. Review of Systems Review of Systems: All systems reviewed & are unremarkable except as noted in Subjective Physical Exam Physical Exam: General: Alert, oriented. No acute distress Skin: No noted rashes or bruises Psych: Appropriate mood and affect Neuro:difficulty with right shoulder and arm movements HEENT: NC/AT CV: RRR Resp: Breath sounds clear bilaterally, no increased effort of breathing. Abdomen: Soft, nontender, nondistended. Extremities: No edema in lower extremities bilaterally. Results & Data Results & Data Vital Signs (Past 12 Hours) Vital Signs Temp Pulse Pulse Pulse Resp BP BP 08/18/23 07:23 36.5 C 76 18 131/66 08/18/23 04:01 36.4 C L 67 12 160/72 H 08/18/23 03:30 68 16 142/73 H 08/18/23 01:33 79 08/17/23 22:30 79 20 158/72 H 08/17/23 22:00 82 20 156/61 H 08/17/23 21:47 Pulse Ox O2 Del Method 08/18/23 07:23 92 Room Air 08/18/23 04:01 96 Room Air 08/18/23 03:30 94 Room Air 08/18/23 01:33 08/17/23 22:30 93 08/17/23 22:00 94 08/17/23 21:47 96 Room Air
[2023-08-18] MEDS: ACETAMINOPHEN 325 MG TAB PO PRN (11:29)
[2023-08-18] MEDS: LIDOCAINE 5% 1 PATCH TD SCH (13:24)
[2023-08-18] MEDS: LACTATED RINGER'S 1,000 ML IV SCH (17:49)
[2023-08-18] MEDS: amLODIPine BESYLATE 5 MG TAB PO SCH (20:19)
[2023-08-18] MEDS: ROSUVASTATIN CALCIUM 5 MG TAB PO SCH (20:19)
[2023-08-18] MEDS: traMADol HCL 50 MG TABLET PO PRN (20:22)
[2023-08-19 07:02] LABS: Basophils # (auto) 0.03 K/uL (0.00-0.20); Basophils % (auto) 0.4 %; Eosinophils # (auto) 0.13 K/uL (0.00-0.50); Eosinophils % (auto) 1.9 %; Hematocrit (blood only) 33.3 % (37.0-47.0); Immature Granulocytes # (auto) 0.03 K/uL (0.01-0.20); Immature Granulocytes % (auto) 0.4 %; Lymphocytes # (auto) 1.24 K/uL (1.20-3.40); Lymphocytes % (auto) 17.8 %; Mean Corpuscular Hemoglobin 30.6 pg (25.0-34.0); Mean Corpuscular Volume 92.5 fL (80.0-100.0); Mean Platelet Volume 8.9 fL (9.4-12.4); Monocytes # (auto) 0.77 K/uL (0.11-0.59); Neutrophils # (auto) 4.78 K/uL (1.40-6.50); Neutrophils % (auto) 68.5 %; Platelet Count 147 K/uL (130-400); RDW Coefficient of Variation 14.2 % (11.5-14.5); RDW Standard Deviation 48.1 fL (36.4-46.3); White Blood Count 6.98 K/ul (4.8-10.8)
[2023-08-19 07:18] LABS: Albumin Globulin Ratio 1.7 (0.9-2); Albumin Level 3.5 gm/dl (3.4-5.0); Bilirubin,Total 0.7 mg/dl (0.2-1.0); Calcium 9.1 mg/dl (8.6-10.3); Creatinine Clr Calc Pharmacy 60.9 ml/min; Est GFR (African American) 96.9 ml/min; Est GFR (Non-African American) 83.6 ml/min; Globulin 2.1 gm/dl (2.5-4.0); Magnesium 1.8 mg/dl (1.7-2.4); Phosphorus 2.6 mg/dl (2.5-4.9); Potassium 3.4 mmol/L (3.5-5.1); Total Protein 5.6 gm/dl (6.0-8.3)
--- NOTE | 2023-08-19 09:36 | Urology Progress Note ---
Date of Service August 19, 2023 Assessment & Plan (1) Calculus of proximal left ureter: Plan: Follow-up of left proximal ureteral stone Patient afebrile and hemodynamically stable Labs todaycreatinine 0.70, no leukocytosis Options for stone management reviewed and discussed Offered left ureteral stent placement today and she is agreeable, plan to treat stone at a later date Proceed to OR for cystoscopy and left ureteral stent placement Risks and benefits of procedure to be reviewed with patient by Dr. Saldana Continue with IV Zosyn preoperatively Keep NPO for procedure Continue supportive care and medical management per hospital medicine service Attending note: Patient independently assessed, examined, interviewed, and evaluated. Agree with note as above. Patient's vitals and labs were all reviewed. Pertinent values in the HPI and plan section. Imaging was reviewed interpreted by myself. Agree with read. Vitals were reviewed. Discussed findings extensively with patient and family. Reviewed with nurse practitioner as well as consulting physicians/team. Patient's complicated medical and surgical history was reviewed and summarized above. Patient's surgical, medical, social, and family history were all reviewed with pertinent values as above. Discussed patient's current diagnosis as well as concerns and issues. Reviewed different options moving forward. Discussed potential risks and benefits as well as possible options and concerns. Reviewed potential surgical options and interventions. Discussed potential issues and concerns related to intervention. Risk and benefits were discussed extensively with patient and any available family. Discussed potential risks related to anesthesia. Discussed risks of bleeding infection and injury. Risks and benefits discussed at length for procedure. These include bleeding, infection, injury to surrounding tissues or organs, and risks associated with anesthesia. Patient states understanding and agrees to proceed. Will sign consent and schedule. Plan for cystoscopy with left stent placement. Admission and Anticipated Discharge Date Admission Date: August 18, 2023 Subjective Patient seen and examined at bedside this morning She is awake and sitting up in bed Reports intermittent left flank discomfort Voiding without difficulty Denies fever, chills, nausea or vomiting She is NPO Review of Systems Constitutional: as per Subjective / HPI Genitourinary: as per Subjective / HPI Physical Exam Constitutional: well developed and well nourished; no acute distress Respiratory: normal respiratory effort; no respiratory distress and no labored breathing Gastrointestinal (Abdomen): Inspection/Auscultation: abdomen normal to inspection Musculoskeletal: Head/Neck/Chest: normocephalic Neurologic: moves all extremities and awake Psychiatric: Orientation: alert and oriented x 3 Results & Data Vital Signs (Past 12 Hours) Vital Signs Temp Pulse Resp BP Pulse Ox O2 Del Method 08/19/23 07:52 36.5 C 67 16 148/77 H 94 Room Air PG Care Time/CCT Total # of Minutes Spent Total Time Spent with Patient: Total time spent is greater than 50% in coordination of care (as documented) at patient's floor/unit and/or counseling patient: Coding Level of Care Code 89248 SUB INP/OBS CARE 2/35MIN Diagnoses Calculus of proximal left ureter N20.1
[2023-08-19] MEDS: TRIAMCINOLONE ACET 40 MG/ML VIAL IA ONE (11:35)
[2023-08-19] MEDS: BUPIVACAINE 0.5 % 5 MG/1 ML MPF 30ML VIAL INFIL ONE (11:35)
[2023-08-19] MEDS: POTASSIUM CHLORIDE CRTAB 20 MEQ TABCR PO STA (11:48)
[2023-08-19] MEDS ORDERED: fentaNYL citrate PF 100 MCG/2 ML VIAL ONE ×2 (13:06→14:29)
[2023-08-19] MEDS: LACTATED RINGER'S 1,000 ML IV SCH (13:23)
[2023-08-19] MEDS ORDERED: ATROPINE SULFATE 0.1 MG/ML 10ML SYR IV PRN (13:44)
[2023-08-19] MEDS ORDERED: ePHEDrine sulfate 50 MG/ML AMP IV PRN (13:44)
[2023-08-19] MEDS ORDERED: ONDANSETRON INJ 2 MG/ML 2 ML VIAL IV PRN (13:44)
[2023-08-19] MEDS ORDERED: fentaNYL citrate PF 100 MCG/2 ML VIAL IV PRN (13:44)
--- NOTE | 2023-08-19 13:44 | Anesthesiology Consultation ---
Date of Service August 19, 2023 Assessment & Plan Chart Review Chart Review: Acceptable Risk for Surgery and Patient NOT seen in Pre Admission Testing Consults Requested none ASA ASA2E Proposed Anesthesia Anesthesia Type: MAC Risk / Benefits Reviewed With: PT / POA / Parent / Guardian, Accepts Plan and Informed Consent Obtained History Surgery Operation Date: 08/19/23 08:20 Proposed Procedures p Cystoscopy, Left Stent Placement - Jacek Saldana, DO Height/Weight Height: 5 ft 3 in Weight: 64.8 kg Allergies Allergy/AdvReac Type Severity Reaction Status Date / Time ciprofloxacin Allergy Intermediate RASH, CAN Verified 08/18/23 01:45 NOT TAKE WITH CALCIUM niacin Allergy Intermediate Hives Verified 08/18/23 01:45 oxybutynin Allergy Unknown ON [facility] Verified 08/18/23 01:45 LIST simvastatin [From Zocor] Allergy Unknown ON [facility] MED Verified 08/18/23 01:45 LIST metronidazole AdvReac Intermediate METALLIC Verified 08/18/23 01:45 TASTE oxycodone [From Percocet] AdvReac Intermediate HALLUCINATI Verified 08/18/23 01:45 ONS Sulfa (Sulfonamide AdvReac Intermediate BAD TASTE Verified 08/18/23 01:45 Antibiotics) IN MOUTH Medications Home Medications Medication Instructions Recorded Confirmed Last Taken acetaminophen 500 mg tablet 1,000 mg PO Q6H PRN Pain 09/03/22 08/18/23 Unknown (Tylenol Extra Strength) amlodipine 2.5 mg tablet 2.5 mg PO HS 09/03/22 08/18/23 08/16/23 lisinopril 20 mg tablet 20 mg PO QAM 09/03/22 08/18/23 08/16/23 metoprolol tartrate 50 mg tablet 50 mg PO BID 09/03/22 08/18/23 08/16/23 sertraline 100 mg tablet 100 mg PO QAM 09/03/22 08/18/23 08/16/23 ibuprofen 200 mg tablet 400 mg PO Q6H PRN Fever Or Pain 08/18/23 08/18/23 Unknown rosuvastatin 5 mg tablet 5 mg PO QPM 08/18/23 08/18/23 08/15/23 Active Medications Generic Name Dose Route Start Last Admin Trade Name Freq PRN Reason Stop Dose Admin Acetaminophen 650 mg 08/18/23 02:38 08/19/23 00:03 Acetaminophen 325 Mg Tab PO 09/17/23 02:37 650 mg QID PRN Administration pain/fever Amlodipine Besylate 2.5 mg 08/18/23 21:00 08/18/23 20:19 Amlodipine Besylate 5 Mg Tab PO 09/17/23 20:59 2.5 mg HS HOLDEN Administration Piperacillin Sod/Tazobactam 100 mls @ 25 mls/hr 08/18/23 08:00 08/19/23 12:55 Sod 4.5 gm/ Dextrose IV 08/28/23 07:59 Infused Q8H HOLDEN Infusion Protocol Lactated Ringer's 1,000 mls @ 80 mls/hr 08/18/23 15:30 08/19/23 13:10 Lr IV 09/17/23 15:29 0 mls/hr .[id number] HOLDEN Infusion Lactated Ringer's 1,000 mls @ 15 mls/hr 08/19/23 13:00 08/19/23 13:23 Lr IV 09/18/23 12:59 15 mls/hr .Q24H HOLDEN Administration Lidocaine 1 patch 08/18/23 12:00 08/19/23 08:24 Lidocaine 5% 1 Patch TD 09/17/23 11:59 1 patch QAM HOLDEN Administration Lisinopril 20 mg 08/18/23 09:00 08/19/23 08:25 Lisinopril 20 Mg Tab PO 09/17/23 08:59 20 mg QAM HOLDEN Administration Metoprolol Tartrate 50 mg 08/18/23 09:00 08/19/23 08:25 Metoprolol Tartrate 50 Mg Tab PO 09/17/23 08:59 50 mg BID HOLDEN Administration Miscellaneous 1 each 08/18/23 21:00 08/18/23 20:30 Remove Lidoderm Patch N/A 09/17/23 20:59 1 each DAILY@2100 HOLDEN Administration Rosuvastatin Calcium 5 mg 08/18/23 21:00 08/18/23 20:19 Rosuvastatin Calcium 5 Mg Tab PO 09/17/23 20:59 5 mg QPM HOLDEN Administration Sertraline HCl 100 mg 08/18/23 09:00 08/19/23 08:25 Sertraline Hcl 100 Mg Tablet PO 09/17/23 08:59 100 mg QAM HOLDEN Administration Tramadol HCl 25 - 50 mg 08/18/23 02:38 08/18/23 20:22 Tramadol Hcl 50 Mg Tablet PO 09/17/23 02:37 50 mg Q4H PRN Administration Pain NPO Date Last Intake of Fluids: 08/18/23 Time Last Intake of Fluids: 21:00 Last Intake of Fluids Comment: sip water 1150 w/med Date Last Intake of Solids: 08/18/23 Time Last Intake of Solids: 21:00 Past Medical History Medical History HLD (hyperlipidemia) HTN (hypertension) Exercise / Class Metabolic Activity II 4-5 Yardwork/Stairs/Walk up hill Past Family History Family History Other No pertinent family history Past Anesthesia History No Hx of Anesthesia Complications and No Family Hx of Anesthesia Complications History of PONV No Hx of PONV and No Hx of Motion Sickness Social History Smoking Status: Never smoker Do You Dip or Chew Tobacco: No Hx Alcohol Use: No Hx Substance Use: No substance use type: does not use Physical Exam Vital Signs Last Vital Signs Temp 36.8 C 08/19/23 13:20 Pulse 66 08/19/23 13:20 Resp 18 08/19/23 13:20 BP 133/73 08/19/23 13:20 Pulse Ox 92 08/19/23 13:20 O2 Del Method Room Air 08/19/23 13:20 ENMT Mouth: no dentition abnormality Thyromental Distance: > or= 3.5 Finger Breadths Mallampati Class: II Neck normal visual inspection Respiratory normal respiratory effort Auscultation: lungs clear to auscultation bilaterally Cardiovascular Rate/Rhythm: regular rate and regular rhythm Psychiatric Orientation: alert Testing Laboratory Results 08/19/23 06:10 08/19/23 06:10 PT 10.8 Seconds (9.0-12.0) 08/17/23 21:30 INR 1.0 (0.9-1.1) 08/17/23 21:30 Hemoglobin A1c 5.9 % (4.5-5.6) H 08/18/23 07:04 Urine Color Dark Yellow 08/17/23 21:30 Urine Appearance Clear (Clear) 08/17/23 21:30 Urine pH 5.5 (4.5-7.5) 08/17/23 21:30 Ur Specific [place] 1.020 (1.000-1.030) 08/17/23 21:30 Urine Protein 1+ (Negative) H 08/17/23 21:30 Urine Glucose (UA) Negative (Negative) 08/17/23 21:30 Urine Ketones 1+ (Negative) H 08/17/23 21:30 Urine Nitrite Negative (Negative) 08/17/23 21:30 Ur Leukocyte Esterase Trace (Negative) H 08/17/23 21:30 Urine WBC (Auto) 0-5 /hpf (0-5) 08/17/23 21:30 Urine RBC (Auto) 11-20 /hpf (0-2) H 08/17/23 21:30 U Hyaline Cast (Auto) 3-5 /lpf (0-2) H 08/17/23 21:30 U Epithel Cells (Auto) 0-2 /hpf (0-2) 08/17/23 21:30 Urine Bacteria (Auto) None Seen (None Seen) 08/17/23 21:30
[2023-08-19] MEDS ORDERED: PROPOFOL IV EMULSION 10 MG/ML 20 ML VIAL IV ONE (14:00)
[2023-08-19] MEDS ORDERED: MIDAZOLAM HCL 1 MG/ML 2ML VIAL ONE (14:00)
[2023-08-19] MEDS ORDERED: LIDOCAINE 2% 2 ML VIAL/AMP(20MG/ML) INFIL ONE (14:00)
[2023-08-19] MEDS: DIATRIZOATE MEGLUMINE 30% 100ML VIAL INSTIL ONE (14:30)
--- NOTE | 2023-08-19 14:36 | Operative Report ---
[facility] Post Operative Report Pre & Post Diagnosis Operation Date: 08/19/23 08:20 Pre-Op Diagnosis: OBS UROPATHY, DIVERTICULITIS Post-Op Diagnosis: OBS UROPATHY, DIVERTICULITIS I identified the patient and participated in the time-out.: Yes Procedure Operation Date: 08/19/23 08:20 Actual Procedures p Cystoscopy with left retrograde pyelogram, and Left Stent Placement(Not Applicable) - Jacek Saldana, Surgeon Jacek Saldana, II, DO Chair Spring Assembler None Estimated Blood Loss 1 Findings Consistent with Post-Op Diagnosis Stent placed in good position. Significant obstruction near left UPJ. Specimens None Drains 6 Fr x 24 cm Anesthesia Type MAC Complications none Disposition Disposition: Recovery Room Indications Patient with obstruction. Risks and benefits discussed at length. Description of Procedure Patient was consented and brought back to the operating room. Patient was placed under anesthesia in the supine position and moved to the dorsal lithotomy position. Patient was prepped and draped in the regular sterile fashion. A time out was completed. A 30degree Cystoscope was placed into the bladder and the entire bladder was examined. The UO's were identified. The UO was cannulized with a catheter and a retrograde pyelogram was completed. A wire was then placed. With the wire in place, a 6 Fr Double J stent was placed. It was confirmed with fluoroscopy. With the stent in place, the bladder was emptied. The scope was removed. The patient was cleaned, aroused from anesthesia, and transferred to the pacu in stable condition having tolerated the procedure well with no complications. I was present and participated in all aspects of the procedure. The patient will be monitored in the PACU until transferred. Will likely monitor post procedure with possible stone treatment after completion of antibiotics and improvement. I attest to the content of the Intraoperative Record and any orders documented therein. Any exceptions are noted below.
--- NOTE | 2023-08-19 14:56 | Hospitalist Progress Note ---
Date of Service August 19, 2023 Assessment & Plan (1) Abdominal pain: Plan Pt is a 78yoF with PMHx significant for hypertension, hyperlipidemia, urge incontinence status post neurostimulator, diverticulosis, mood disorder, recent outpatient MRI findings of rotator cuff tear (07/2023) presenting with abdominal pain. Diverticulitis Obstructive Nephropathy Pt presented with abdominal pain Likely in setting of mild diverticulitis and obstructive uropathy CT abd/pelvis noting partially obstructing kidney stone in left kidney and mild diverticulitis UA did not appear infectious, no urine Cx collected as a result Not currently septic Urology consulted, appreciate recs -s/p stent placement on 08/18 Continue IV Zosyn Continue to monitor Right rotator cuff tear labral tear on outpatient MRI Orthopedics consulted, appreciate recs -considering injection Hypertension elevated secondary to discomfort Continue home amlodipine, lisinopril and metoprolol hyperlipidemia on statin Rx, continue urge incontinence status post neurostimulator mood disorder stable Prediabetes Hgba1c of 5.9 PCP followup DVT prophylaxis. SCDs Re: Possible procedure Full code Admission and Anticipated Discharge Date Admission Date: August 18, 2023 Subjective Pt was seen in the AM before surgery. Laying in bed. Noting increasing pain in her abdomen. Review of Systems Review of Systems: All systems reviewed & are unremarkable except as noted in Subjective Physical Exam Physical Exam: General: Alert, oriented. No acute distress Skin: No noted rashes or bruises Psych: Appropriate mood and affect Neuro:difficulty with right shoulder and arm movements HEENT: NC/AT CV: RRR Resp: Breath sounds clear bilaterally, no increased effort of breathing. Abdomen: Soft, tender Extremities: No edema in lower extremities bilaterally. Results & Data Results & Data Vital Signs (Past 12 Hours) Vital Signs Temp Pulse Pulse Resp BP Pulse Ox O2 Del Method 08/19/23 14:55 37 C 64 18 121/60 94 Room Air 08/19/23 14:45 65 20 122/55 L 94 Room Air 08/19/23 14:36 36.1 C L 62 22 126/65 95 Oxymask 08/19/23 13:20 36.8 C 66 18 133/73 92 Room Air 08/19/23 12:00 36.7 C 63 16 143/78 H 93 Room Air 08/19/23 07:52 36.5 C 67 16 148/77 H 94 Room Air O2 Flow Rate 08/19/23 14:55 08/19/23 14:45 08/19/23 14:36 10 08/19/23 13:20 08/19/23 12:00 08/19/23 07:52 Diagnostic Findings Abdomen/Pelvis CT 08/17/23 21:47 Exam(s): CT ABDOMEN + PELVIS With Contrast IV Amt: 90 ml optiray 320 EXAM: CT Abdomen and Pelvis With Intravenous Contrast CLINICAL HISTORY: Reason for exam: Left sided abdominal pain. TECHNIQUE: Axial computed tomography images of the abdomen and pelvis with intravenous contrast. CTDI is 28.1 mGy and DLP is 1237.93 mGy-cm. Automated exposure control was utilized for the study. A dose lowering technique was utilized adhering to the principles of ALARA. CONTRAST: Patient received 90 ml optiray 320 of IV contrast COMPARISON: No relevant prior studies available. FINDINGS: Lung bases: Unremarkable. No mass. No consolidation. ABDOMEN: Liver: Hepatic steatosis. Gallbladder and bile ducts: Unremarkable. No calcified stones. No ductal dilation. Pancreas: Unremarkable. No mass. No ductal dilation. Spleen: Unremarkable. No splenomegaly. Adrenals: Unremarkable. No mass. Kidneys and ureters: Partially obstructing 8 mm stone in the LEFT proximal ureter. Mild fullness of the LEFT renal collecting system. No delayed nephrogram. Stomach and bowel: Peridiverticular inflammation about the proximal ascending colon, concerning for mild diverticulitis. Diverticulosis, without acute diverticulitis. No small bowel obstruction. No free intraperitoneal air. PELVIS: Appendix: No findings to suggest acute appendicitis. Bladder: Unremarkable. Normal urinary bladder. Reproductive: Unremarkable as visualized. ABDOMEN and PELVIS: Intraperitoneal space: Unremarkable. No free air. No significant fluid collection. Bones/joints: Degenerative changes of the spine. No acute fracture. No dislocation. Soft tissues: Unremarkable. Vasculature: Atherosclerotic changes of the aorta. No abdominal aortic aneurysm. Lymph nodes: Unremarkable. No enlarged lymph nodes. IMPRESSION: 1. Partially obstructing 8 mm stone in the LEFT proximal ureter. Mild fullness of the LEFT renal collecting system. No delayed nephrogram. 2. Peridiverticular inflammation about the proximal ascending colon, concerning for mild diverticulitis. Electronically signed by: James Light MD 08/18/23 01:15 AM Retrograde Pyelogram 08/19/23 09:00 [place] retrograde includes kub CLINICAL HISTORY: Left stent TECHNIQUE: 2 views were obtained with the C-arm in the OR with the above procedure. Total fluoroscopy time was 18.1 seconds. Radiation dose was 3.66 mGy. Comparison: Comparison is made to CT abdomen pelvis 08/17/2023 FINDINGS/IMPRESSION: Intraoperative images were obtained of left retrograde pyelogram and stent placement. In the final images, the stent is in satisfactory position. Please correlate with intraoperative fluoroscopy and operative report. ACT 112: Negative or not required by law. Electronically signed by: Justyn Mary M.D. 08/19/2023 3:13 PM
--- NOTE | 2023-08-19 15:15 | Fluoroscopy Report ---
FL retrograde includes kub CLINICAL HISTORY: Left stent TECHNIQUE: 2 views were obtained with the C-arm in the OR with the above procedure. Total fluoroscopy time was 18.1 seconds. Radiation dose was 3.66 mGy. Comparison: Comparison is made to CT abdomen pelvis 08/17/2023 FINDINGS/IMPRESSION: Intraoperative images were obtained of left retrograde pyelogram and stent place ment. In the final images, the stent is in satisfactory position. Please correlate with intraoperative fluoroscopy and operative report. ACT 112: Negative or not required by law. Electronically signed by: Justyn Mary M.D. 08/19/2023 3:13 PM
--- NOTE | 2023-08-19 15:30 | Anesthesiology Progress Note ---
Date of Service August 19, 2023 Anesthesia Post Procedure Vital Signs Vital Signs: Temp Pulse Pulse Resp BP BP Pulse Ox 08/19/23 14:55 37 C 64 18 121/60 94 08/19/23 14:45 65 20 122/55 L 94 08/19/23 14:36 36.1 C L 62 22 126/65 95 08/19/23 13:20 36.8 C 66 18 133/73 92 08/19/23 12:00 36.7 C 63 16 143/78 H 93 08/19/23 07:52 36.5 C 67 16 148/77 H 94 08/18/23 19:23 36.7 C 83 17 147/80 H 92 O2 Del Method O2 Flow Rate 08/19/23 14:55 Room Air 08/19/23 14:45 Room Air 08/19/23 14:36 Oxymask 10 08/19/23 13:20 Room Air 08/19/23 12:00 Room Air 08/19/23 07:52 Room Air 08/18/23 19:23 Room Air Pain Intensity Left Flank: Pain Intensity: 1 Transfer of Care Handoff Completed per policy Notes Mental Status: alert / awake / arousable and participated in evaluation Patient Amnestic to Procedure: Yes Nausea / Vomiting: adequately controlled Pain: adequately controlled Airway Patency, RR, SpO2: stable & adequate BP & HR: stable & adequate Hydration State: stable & adequate Anesthetic Complications: no major complications apparent
[2023-08-20 06:47] LABS: Basophils # (auto) 0.01 K/uL (0.00-0.20); Basophils % (auto) 0.1 %; Hematocrit (blood only) 33.7 % (37.0-47.0); Hemoglobin 11.2 g/dl (12.0-16.0); Immature Granulocytes # (auto) 0.03 K/uL (0.01-0.20); Immature Granulocytes % (auto) 0.4 %; Lymphocytes # (auto) 0.72 K/uL (1.20-3.40); Lymphocytes % (auto) 10.3 %; Mean Corpuscular Hemoglobin 30.8 pg (25.0-34.0); Mean Corpuscular Hgb Conc 33.2 g/dL (32.0-36.0); Mean Corpuscular Volume 92.6 fL (80.0-100.0); Mean Platelet Volume 9.1 fL (9.4-12.4); Monocytes # (auto) 0.38 K/uL (0.11-0.59); Monocytes % (auto) 5.4 %; Neutrophils # (auto) 5.86 K/uL (1.40-6.50); Neutrophils % (auto) 83.8 %; Platelet Count 181 K/uL (130-400); RDW Coefficient of Variation 13.9 % (11.5-14.5); RDW Standard Deviation 47.2 fL (36.4-46.3); Red Blood Count 3.64 M/uL (4.20-5.40)
[2023-08-20 07:02] LABS: Albumin Globulin Ratio 1.5 (0.9-2); Albumin Level 3.5 gm/dl (3.4-5.0); BUN Creatinine Ratio 20.9 (10-20); Bilirubin,Total 0.6 mg/dl (0.2-1.0); Calcium 9.6 mg/dl (8.6-10.3); Creatinine Clr Calc Pharmacy 63.7 ml/min; Est GFR (African American) 98.3 ml/min; Est GFR (Non-African American) 84.8 ml/min; Globulin 2.3 gm/dl (2.5-4.0); Magnesium 1.9 mg/dl (1.7-2.4); Phosphorus 3.2 mg/dl (2.5-4.9); Total Protein 5.8 gm/dl (6.0-8.3)
--- NOTE | 2023-08-20 09:39 | Urology Progress Note ---
Date of Service August 20, 2023 Assessment & Plan (1) Calculus of proximal left ureter: Plan: - Pt POD#1 s/p cystoscopy and left ureteral stent placement - Doing well, progressing as expected - Afebrile, lab work reviewed - creatinine 0.67, no leukocytosis - Tolerating left ureteral stent with minimal bother - Okay to d/c from perspective when medically stable - Recommend Tamsulosin, prn Pyridium and oxybutynin, prn pain medication for stent management - Expected clinical course reviewed, all questions answered - Will arrange outpatient follow-up with our service to discuss definitive stone treatment - will sign off, please contact our service with any additional questions or concerns- Admission and Anticipated Discharge Date Admission Date: August 18, 2023 Subjective Patient seen and examined at bedside She is awake and sitting up at the side of the bed eating breakfast Denies flank pain Voiding spontaneously, notes urgency and frequency postprocedure, hematuria clearing Denies fever, chills, nausea or vomiting Review of Systems Constitutional: as per Subjective / HPI Gastrointestinal: as per Subjective / HPI Genitourinary: as per Subjective / HPI Physical Exam Constitutional: well developed and well nourished; no acute distress Respiratory: normal respiratory effort; no respiratory distress and no labored breathing Gastrointestinal (Abdomen): Inspection/Auscultation: abdomen normal to inspection Musculoskeletal: Head/Neck/Chest: normocephalic Neurologic: moves all extremities and awake Psychiatric: Orientation: alert and oriented x 3 Results & Data Vital Signs (Past 12 Hours) Vital Signs Temp Pulse Resp BP Pulse Ox O2 Del Method 08/20/23 07:01 36.4 C L 67 16 132/67 95 Room Air 08/20/23 03:12 36.5 C 62 17 120/72 90 Room Air 08/19/23 22:53 36.9 C 68 18 144/75 H 93 Room Air PG Care Time/CCT Total # of Minutes Spent Total Time Spent with Patient: Total time spent is greater than 50% in coordination of care (as documented) at patient's floor/unit and/or counseling patient: Coding Level of Care Code 62424 SUB INP/OBS CARE 1/25MIN Diagnoses Calculus of proximal left ureter N20.1
--- NOTE | 2023-08-20 12:07 | Discharge Summary ---
Discharge Summary Date of Service August 20, 2023 Notes For Next Care Provider Medication Changes From Visit NEW MEDICATIONS * Augmentin, 875 mg, 1 tablet by mouth twice daily. Next dose is due in the evening of 08/20/2023. * Florastor 250 mg 1 tablet daily. This is a probiotic to help with GI health while on antibiotic therapy. * Flomax 0.4 mg 1 tablet daily. Next dose due on 08/20. Please take this medication until recommended to discontinue by urology. This is to help with flow of urine while treating kidney stone. * Pyridium 200 mg 1 tablet every 8 hours as needed. This is for painful urination in regards to your stent placed. * Lidocaine patch 5%, apply patch and keep on for 12 hours. Then remove and keep off for [address] this on right shoulder where you are having pain. Continue all other medications as prescribed. Admission HPI Per Admitting Provider History obtained from patient, family, and records. Medical history significant for hypertension, hyperlipidemia, urge incontinence status post neurostimulator, diverticulosis, mood disorder, recent outpatient MRI findings of rotator cuff tear (07/2023). 2 days history of achy left-sided abdominal pain with nausea vomiting. Loose brown stools. Feverish from time to time. Denies gross hematuria. No headache, no chest pain, no SOB. Zosyn administered at the ER. Medical History as above Achy right shoulder pain of 3 months duration without recollection of antecedent trauma. Outpatient right shoulder MRI done at [facility] last 08/13 requested by [facility] trade specialist showed: Essentially complete full-thickness tear of the supraspinatus and infraspinatus tendons. Mild to moderate fatty atrophy of the supraspinatus, infraspinatus and teres minor muscles. Posterior superior labral tear. Moderate acromioclavicular osteoarthritis. MRI results above not yet known to patient. Outpatient [facility] orthopedics scheduled for next month. 2018 colonoscopy showed diverticulosis and polyps. 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 Admission Exam Per Admitting Provider Physical Exam: GENERAL: Comfortable, pleasant, no respiratory distress SKIN: Normal color, warm HEENT: [place] palpebral conjunctivae, no ptosis, dry buccal mucosa NECK : Supple, no tenderness CHEST : CTA, no tenderness HEART : RRR, no obvious murmurs ABDOMEN: Some distention, left-sided abdominal tenderness EXTREMITIES : Right shoulder tenderness with limited ROM, no LE swelling/tenderness, no other conspicuous deformities noted NEUROLOGIC : Coherent, no facial asymmetry, no other gross focality Principal Dx & Hospital Course #1 = Principal Diagnosis (1) Abdominal pain: Plan Pt is a 78yoF with PMHx significant for hypertension, hyperlipidemia, urge incontinence status post neurostimulator, diverticulosis, mood disorder, recent outpatient MRI findings of rotator cuff tear (07/2023) presenting with abdominal pain. Diverticulitis Obstructive Nephropathy Pt presented with abdominal pain Likely in setting of mild diverticulitis and obstructive uropathy CT abd/pelvis noting Partially obstructing 8 mm stone in the LEFT proximal ureter and mild diverticulitis UA did not appear infectious, no urine Cx collected as a result Not currently septic Urology consulted, appreciate recs -s/p stent placement on 08/18 Add flomax, prn pyridium She has not required narcotics since 08/17. Will encourage tylenol or ibuprofen at discharge and prn pyridium F/U with urology for definitive stone management Will transition to oral Augmentin for additional 7 days Right rotator cuff tear labral tear on outpatient MRI continue lidocaine patch, f/u with ortho at discharge for possible injection Hypertension elevated secondary to discomfort Continue home amlodipine, lisinopril and metoprolol, bp much improved, 132/67 on day of discharge hyperlipidemia on statin Rx, continue urge incontinence status post neurostimulator mood disorder stable Prediabetes Hgba1c of 5.9 PCP followup On day of discharge pt was in good spirits and without discomfort. She was educated on completing antibiotic course for diverticulitis as well as close F/U with urology. She is passing gas and moving loose stool. SHe is hemodynamically stable on day of discharge and all questions were answered. She was seen and examined in collaboration with Dr. Lara, please see addendum. Discharge Exam Gen: Thin, petite F, NAD, A&O x3 HEENT: Normocephalic, atraumatic, conjunctivae moist, sclerae anicteric, mucous membranes moist. Lung: Clear to Auscultation bilaterally, no wheezes/rales/rhonchi Heart: Regular rate, regular rhythm, no murmurs, rubs, or gallops Abdomen: Soft, NT, ND +BS x 4 Extremities: No edema Skin: Warm, no rash, negative turgor. Updated Medication List Medication Instructions Recorded Confirmed Type acetaminophen 500 mg tablet 1,000 mg PO Q6H PRN Pain 09/03/22 08/18/23 History (Tylenol Extra Strength) amlodipine 2.5 mg tablet 2.5 mg PO HS 09/03/22 08/18/23 History lisinopril 20 mg tablet 20 mg PO QAM 09/03/22 08/18/23 History metoprolol tartrate 50 mg tablet 50 mg PO BID 09/03/22 08/18/23 History sertraline 100 mg tablet 100 mg PO QAM 09/03/22 08/18/23 History ibuprofen 200 mg tablet 400 mg PO Q6H PRN Fever Or Pain 08/18/23 08/18/23 History rosuvastatin 5 mg tablet 5 mg PO QPM 08/18/23 08/18/23 History Saccharomyces boulardii 250 mg 250 mg PO DAILY #7 caps 08/20/23 Rx capsule (Florastor) amoxicillin 875 mg-potassium 1 tab PO Q12H #14 tabs 08/20/23 Rx clavulanate 125 mg tablet phenazopyridine 200 mg tablet 200 mg PO Q8H PRN dysuria 6 doses 08/20/23 Rx (Pyridium) #14 tabs tamsulosin 0.4 mg capsule (Flomax) 0.4 mg PO DAILY #30 caps 08/20/23 Rx Hospital Stay Data Consultations 08/18/23 01:36 ED Decision to Admit Stat 08/18/23 02:35 Consult Orthopedic Surgery Routine 08/18/23 03:59 Consult Urology Routine Procedures Performed Operation Date: 08/19/23 08:20 Actual Procedures p Cystoscopy, Left Stent Placement(Left) - Jacek Saldana DO Diagnostic Imagining Performed Abdomen/Pelvis CT 08/17/23 21:47 Exam(s): CT ABDOMEN + PELVIS With Contrast IV Amt: 90 ml optiray 320 EXAM: CT Abdomen and Pelvis With Intravenous Contrast CLINICAL HISTORY: Reason for exam: Left sided abdominal pain. TECHNIQUE: Axial computed tomography images of the abdomen and pelvis with intravenous contrast. CTDI is 28.1 mGy and DLP is 1237.93 mGy-cm. Automated exposure control was utilized for the study. A dose lowering technique was utilized adhering to the principles of ALARA. CONTRAST: Patient received 90 ml optiray 320 of IV contrast COMPARISON: No relevant prior studies available. FINDINGS: Lung bases: Unremarkable. No mass. No consolidation. ABDOMEN: Liver: Hepatic steatosis. Gallbladder and bile ducts: Unremarkable. No calcified stones. No ductal dilation. Pancreas: Unremarkable. No mass. No ductal dilation. Spleen: Unremarkable. No splenomegaly. Adrenals: Unremarkable. No mass. Kidneys and ureters: Partially obstructing 8 mm stone in the LEFT proximal ureter. Mild fullness of the LEFT renal collecting system. No delayed nephrogram. Stomach and bowel: Peridiverticular inflammation about the proximal ascending colon, concerning for mild diverticulitis. Diverticulosis, without acute diverticulitis. No small bowel obstruction. No free intraperitoneal air. PELVIS: Appendix: No findings to suggest acute appendicitis. Bladder: Unremarkable. Normal urinary bladder. Reproductive: Unremarkable as visualized. ABDOMEN and PELVIS: Intraperitoneal space: Unremarkable. No free air. No significant fluid collection. Bones/joints: Degenerative changes of the spine. No acute fracture. No dislocation. Soft tissues: Unremarkable. Vasculature: Atherosclerotic changes of the aorta. No abdominal aortic aneurysm. Lymph nodes: Unremarkable. No enlarged lymph nodes. IMPRESSION: 1. Partially obstructing 8 mm stone in the LEFT proximal ureter. Mild fullness of the LEFT renal collecting system. No delayed nephrogram. 2. Peridiverticular inflammation about the proximal ascending colon, concerning for mild diverticulitis. Electronically signed by: James Light MD 08/18/23 01:15 AM Retrograde Pyelogram 08/19/23 09:00 FL retrograde includes kub CLINICAL HISTORY: Left stent TECHNIQUE: 2 views were obtained with the C-arm in the OR with the above procedure. Total fluoroscopy time was 18.1 seconds. Radiation dose was 3.66 mGy. Comparison: Comparison is made to CT abdomen pelvis 08/17/2023 FINDINGS/IMPRESSION: Intraoperative images were obtained of left retrograde pyelogram and stent placement. In the final images, the stent is in satisfactory position. Please correlate with intraoperative fluoroscopy and operative report. ACT 112: Negative or not required by law. Electronically signed by: Justyn Mary M.D. 08/19/2023 3:13 PM Pending Results Patient Have Any Pending Studies at Discharge: No Discharge Instructions Given to Patient (Per Discharging Provider) MEDICATION CHANGES: NEW MEDICATIONS * Augmentin, 875 mg, 1 tablet by mouth twice daily. Next dose is due in the evening of 08/20/2023. * Florastor 250 mg 1 tablet daily. This is a probiotic to help with GI health while on antibiotic therapy. * Flomax 0.4 mg 1 tablet daily. Next dose due on 08/20. Please take this medication until recommended to discontinue by urology. This is to help with flow of urine while treating kidney stone. * Pyridium 200 mg 1 tablet every 8 hours as needed. This is for painful urination in regards to your stent placed. * Lidocaine patch 4%, apply patch and keep on for 12 hours. Then remove and keep off for [address] this on right shoulder where you are having pain. You can purchase this over the counter at your local pharmacy Continue all other medications as prescribed. SUMMARY OF TEST RESULTS: You were admitted to hospital secondary to abdominal pain. This was felt secondary to a partially obstructing kidney stone in the left kidney as well as mild diverticulitis. You did undergo a urologic procedure in which a stent was placed on 08/[address] Saldana. You were also treated with IV antibiotics for diverticulitis. You will be discharged home on a 7-day course of oral antibiotics. You will need close follow-up with urology. You will also need follow-up with orthopedics in regards to your shoulder pain. PENDING TEST RESULTS: None RECOMMENDATIONS FOR FOLLOW-UP: Please follow-up with your primary care provider as scheduled. Please follow-up with urology as scheduled. Please complete antibiotics in their entirety. This to treat your diverticulitis. You may use [id number] Tylenol or ibuprofen for pain relating to your urological stent. OTHER INSTRUCTIONS: Seek medical attention if you have: * temperature above 101 * chest pain or trouble breathing * abdominal pain, nausea, vomiting * diarrhea, dark stools or bloody stools * any unanswered questions or concerns Call 911 if symptoms are severe. Please take good care of yourself. It has been a pleasure taking care of you. Please take care of yourself. If you have any questions regarding your recent hospitalization please contact [facility] and request Jl Henriquezist @ [phone]. Nguyen Sanon PA-C Total Time Total Time Spent Total Time Spent (In Minutes): 45 minutes Supervising Physician Co-Signing Physician Notes Pt was seen and examined by myself, Maia Lara MD on the day of service. Care was coordinated with Nguyen Sanon PA-C. Pt stated that she felt like her abdominal pain had improved post-op. Noting LLQ pain that she attributed to "the diverticulitis". Noted that the pain was controlled. On exam, noted improvement in tenderness in all quadrants except LLQ. Continue antibiotics and symptomatic pain treatment postop. Close PCP and Urology followup after discharge Otherwise as above. I spent a total [id number] coordinating, documenting, and providing care for this patient excluding time spent in the performance of separately billed services
== END 2023-08-20 14:21 | disposition home or self-care (01) | DRG 660 ==
LOC: ED 21:15 → 3W 08-18 02:31

== ENCOUNTER 2023-09-05 20:18 | Inpatient (IN) ==
--- NOTE | 2023-09-05 21:04 | Emergency Department Note ---
Impression & Plan Sepsis, Acute UTI (urinary tract infection), Acute pyelonephritis, Nausea, vomiting, and diarrhea, Leukocytosis, Elevated troponin ED Provider Note HISTORY OF PRESENT ILLNESS: Patient is a 78-year-old female presenting with diarrhea, vomiting and lower extremity cramping. Patient reports that she has been having lower extremity cramping for "a very long time." However, she reports that today cramps are significantly worse. She states that every time she has gotten up to go to the bathroom today she has had episodes of explosive diarrhea. Reports that she has had more than 8-10 episodes of loose stool today. Denies any recent travel. Denies any fevers. Denies any abdominal pain. She reports she is been very nauseous and has had multiple episodes of vomiting. Denies any chest pain or shortness of breath. Patient was recently admitted to the hospital for diarrhea and found to have diverticulitis. She completed a 7-day course of Augmentin within the last 2 weeks. Patient denies any fevers or chills. ROS: as above PHYSICAL EXAM: Constitutional: Patient appears in no acute distress. HENT: Head: Normocephalic and atraumatic. Eyes: EOMI, PERRL Mouth/Throat: Mucous membranes moist. Neck: Trachea midline. Neck supple. Cardiovascular: RRR, No murmurs, rubs or gallops. Intact distal pulses. Pulmonary/Chest: No respiratory distress. Breath sounds clear and equal bilaterally. No wheezes or rales. Abdominal: Abdomen soft, no tenderness, rebound or guarding. Musculoskeletal: No edema, tenderness or deformity noted. Skin: Warm and dry. No rash, erythema, pallor or cyanosis Psychiatric: Appropriate mood and affect for situation. Neurological: Alert and keenly responsive. CN II-XII grossly intact, moving all extremities equally and fully. MDM: - Vitals signs stable - History obtained via patient. History as above. - Chronic conditions affecting care: HTN; HLD; mood disorder - Differential diagnoses include, but are not limited to: Cdiff; viral illness; electrolyte abnormality; bowel obstruction; sigmoid abscess; UTI - Order placed for continuous cardiac monitoring. At this time, monitor showed rate of 77 bpm with normal sinus rhythm, per my interpretation. - External medical records reviewed. Discharge summary dated 08/20/2023 was reviewed. Patient was admitted at that time for abdominal pain and diverticulitis. She was given Zosyn. She was started on to 7-day course of Augmentin at discharge. - EKG interpreted by myself showed normal sinus rhythm. Rate 73 bpm. QT 370. No acute ischemic changes - Laboratory workup interpreted by myself showed leukocytosis (WBC 14.06) with left shift; normal PT/INR; normal lactate; slight hyponatremia (Na 134); slight hyperglycemia (glucose 160); elevated troponin (18.3); normal lipase - Procalcitonin and blood cultures added to workup - UA showed evidence of infection - CXR negative for pneumonia, per my interpretation - CT abdomen/pelvis with IV contrast showed mucosal thickening of the terminal ileum and ileocecal region concerning for an infectious or inflammatory ileitis. Also noted to have developing left pyelonephritis, per radiology. - Viral respiratory panel negative - Given IV zosyn empirically. - Patient developed a fever in the ER and was given 1g IV tylenol - Given 1L NS and 4 mg IV zofran on initial arrival. Given an additional 1L NS. Patient's sepsis fluid volume resuscitation based on ideal body weight is 1568.10 mL. - Discussion was had with protective services case worker about patient's case and need for admission - Hospitalist consulted for admission - Patient admitted to [facility]ist service for further evaluation and management. ASSESSMENT AND PLAN: Diagnosis: sepsis; acute UTI; acute pyelonephritis; nausea, vomiting and diarrhea; elevated troponin level Plan: admit Past Med/Surg History Problem List (Updated 09/05/23 @ 23:53 by Yaa Rivera MD) Elevated troponin (Acute) Leukocytosis (Acute) Nausea, vomiting, and diarrhea (Acute) Acute pyelonephritis (Acute) Acute UTI (urinary tract infection) (Acute) Sepsis (Acute) Encounter for preoperative assessment (Acute) Right shoulder pain Calculus of proximal left ureter (Acute) Medical History (Updated 09/05/23 @ 23:53 by Yaa Rivera MD) Urge incontinence Bladder stimulator in placed- educated to bring remote DOS Disorder of right rotator cuff Dx'ed with rotator cuff tear 07/2023 Arthritis History of diverticulitis Mild diverticulitis on 08/18/23 A/P CT scan during [facility] admission- discharged on PO Augmentin Anxiety and depression Leg cramping hx (reason for magnesium) Kidney stone on left side HLD (hyperlipidemia) HTN (hypertension) Surgical History History of cystoscopy Cystoscopy with left retrograde pyelogram, and Left Stent Placement 08/19/23 [place] H/O foot surgery right/left History of colonoscopy History of tooth extraction History of tonsillectomy and adenoidectomy H/O: hysterectomy Family History Brother Prostate cancer Nephrolithiasis Other No family history of adverse response to anesthesia No pertinent family history Denies family history of Bladder cancer Bleeding disorder Kidney carcinoma Social History Smoking Status: Never smoker Second Hand Exposure: Yes (in the past); Do You Dip or Chew Tobacco: No; Hx Alcohol Use: No Hx Substance Use: No Preferred Language: Bruneian Communication Ability: Effective Hearing Ability: Normal Nuclear Engineer Required: No Beliefs That Will Affect Care: None Current Living Situation: Alone Current Living Situation Comment: son rajni lives next door current occupational status: retired Feels Safe at Home: Yes Assistive Devices: Glasses Allergies Allergies Allergy/AdvReac Type Severity Reaction Status Date / Time ciprofloxacin Allergy Intermediate RASH, CAN Verified 08/27/23 15:32 NOT TAKE WITH CALCIUM metronidazole Allergy Intermediate METALLIC Verified 08/27/23 15:32 TASTE niacin Allergy Intermediate Hives Verified 08/27/23 15:32 oxybutynin Allergy Intermediate metal Verified 08/27/23 15:32 taste in mough Sulfa (Sulfonamide Allergy Intermediate BAD TASTE Verified 08/27/23 15:32 Antibiotics) IN MOUTH oxycodone [From Percocet] AdvReac Intermediate HALLUCINATI Verified 08/27/23 15:32 ONS simvastatin [From Zocor] AdvReac Unknown didn't work Verified 08/27/23 15:32 Home Meds Home Medications Medication Instructions Recorded Confirmed amlodipine 2.5 mg tablet 2.5 mg PO QPM 09/03/22 09/05/23 lisinopril 20 mg tablet 20 mg PO QAM 09/03/22 09/05/23 metoprolol tartrate 50 mg tablet 50 mg PO BID 09/03/22 09/05/23 sertraline 100 mg tablet 100 mg PO QAM 09/03/22 09/05/23 rosuvastatin 5 mg tablet 5 mg PO QAM 08/18/23 09/05/23 magnesium oxide 400 mg PO QPM 08/27/23 09/05/23 tamsulosin 0.4 mg capsule 0.4 mg PO QAM 09/05/23 09/05/23 Results & Data (ED) Vital Signs Vital Signs - 24 hr 09/05/23 20:22 09/05/23 20:57 09/05/23 20:57 Temperature 36.7 C Temperature Source Temporal Artery Scan Pulse Rate 87 74 74 Pulse Rate [Apical] Pulse Rate from SpO2 Sensor Pulse Rhythm Regular Pulse Rhythm [Apical] Respiratory Rate 19 20 Respiratory Effort / Characteristics Non-Labored Spontaneous Respiratory Depth Normal Respiratory Pattern Blood Pressure 127/75 Blood Pressure [Left Arm] Blood Pressure Mean 92 Blood Pressure Mean [Left Arm] Pulse Oximetry 94 95 Oxygen Delivery Method Room Air Room Air Oxygen Flow Rate Sepsis Recent Fever Within 48 Hours No Sepsis New/Unexplained Change in Mental Status N/A Sepsis Action Taken by Nursing No Action Required Oxygen Flow Rate - Titration Pulse Oximetry Post Tiitration 09/05/23 21:09 09/05/23 21:20 09/05/23 21:23 Temperature Temperature Source Pulse Rate 74 74 Pulse Rate [Apical] 74 Pulse Rate from SpO2 Sensor 74 Pulse Rhythm Regular Pulse Rhythm [Apical] Regular Respiratory Rate 17 16 16 Respiratory Effort / Characteristics Non-Labored Spontaneous Respiratory Depth Normal Respiratory Pattern Regular Blood Pressure 127/63 Blood Pressure [Left Arm] 127/63 Blood Pressure Mean 84 Blood Pressure Mean [Left Arm] 84 Pulse Oximetry 91 90 90 Oxygen Delivery Method Nasal Cannula Room Air Room Air Oxygen Flow Rate 1 Sepsis Recent Fever Within 48 Hours Sepsis New/Unexplained Change in Mental Status Sepsis Action Taken by Nursing Oxygen Flow Rate - Titration Pulse Oximetry Post Tiitration 09/05/23 21:25 09/05/23 21:27 09/05/23 21:33 Temperature Temperature Source Pulse Rate 74 75 Pulse Rate [Apical] Pulse Rate from SpO2 Sensor 75 Pulse Rhythm Regular Pulse Rhythm [Apical] Respiratory Rate 16 18 Respiratory Effort / Characteristics Respiratory Depth Respiratory Pattern Blood Pressure Blood Pressure [Left Arm] Blood Pressure Mean Blood Pressure Mean [Left Arm] Pulse Oximetry 93 92 95 Oxygen Delivery Method Nasal Cannula Nasal Cannula Nasal Cannula Oxygen Flow Rate 1 1 2 Sepsis Recent Fever Within 48 Hours Sepsis New/Unexplained Change in Mental Status Sepsis Action Taken by Nursing Oxygen Flow Rate - Titration 2 Pulse Oximetry Post Tiitration 95 09/05/23 22:05 09/05/23 22:10 09/05/23 22:12 Temperature Temperature Source Pulse Rate 79 Pulse Rate [Apical] Pulse Rate from SpO2 Sensor 79 Pulse Rhythm Pulse Rhythm [Apical] Respiratory Rate 20 Respiratory Effort / Characteristics Respiratory Depth Respiratory Pattern Blood Pressure 125/54 L Blood Pressure [Left Arm] Blood Pressure Mean 77 Blood Pressure Mean [Left Arm] Pulse Oximetry 88 L 99 94 Oxygen Delivery Method Room Air Nasal Cannula Room Air Oxygen Flow Rate 2 Sepsis Recent Fever Within 48 Hours Sepsis New/Unexplained Change in Mental Status Sepsis Action Taken by Nursing Oxygen Flow Rate - Titration Pulse Oximetry Post Tiitration 09/05/23 23:00 Temperature 38.6 C H Temperature Source Oral Pulse Rate Pulse Rate [Apical] 77 Pulse Rate from SpO2 Sensor Pulse Rhythm Pulse Rhythm [Apical] Regular Respiratory Rate 20 Respiratory Effort / Characteristics Non-Labored Spontaneous Respiratory Depth Normal Respiratory Pattern Regular Blood Pressure Blood Pressure [Left Arm] 139/62 Blood Pressure Mean Blood Pressure Mean [Left Arm] 87 Pulse Oximetry 92 Oxygen Delivery Method Nasal Cannula Oxygen Flow Rate 2 Sepsis Recent Fever Within 48 Hours Sepsis New/Unexplained Change in Mental Status Sepsis Action Taken by Nursing Oxygen Flow Rate - Titration Pulse Oximetry Post Tiitration Laboratory Data 09/05/23 20:38 09/05/23 20:38 Lab Results 09/05/23 09/05/23 09/05/23 Range/Units 20:38 20:40 21:49 WBC 14.06 H (4.8-10.8) K/ul RBC 4.10 L (4.20-5.40) M/uL Hgb 12.6 (12.0-16.0) g/dl Hct 38.0 (37.0-47.0) % MCV 92.7 (80.0-100.0) fL MCH 30.7 (25.0-34.0) pg MCHC 33.2 (32.0-36.0) g/dL RDW Std Deviation 47.3 H (36.4-46.3) fL RDW Coeff of Tim 13.9 (11.5-14.5) % Plt Count 238 (130-400) K/uL MPV 8.8 L (9.4-12.4) fL Immature Gran % (Auto) 0.6 % Neut % (Auto) 89.6 % Lymph % (Auto) 2.9 % Foster % (Auto) 6.7 % Eos % (Auto) 0.0 % Baso % (Auto) 0.2 % Neut # (Auto) 12.60 H (1.40-6.50) K/uL Lymph # (Auto) 0.41 L (1.20-3.40) K/uL Foster # (Auto) 0.94 H (0.11-0.59) K/uL Eos # (Auto) 0.00 (0.00-0.50) K/uL Baso # (Auto) 0.03 (0.00-0.20) K/uL Immature Gran # (Auto) 0.08 (0.01-0.20) K/uL PT 11.4 (9.0-12.0) Seconds INR 1.1 (0.9-1.1) Sodium 134 L (136-145) mmol/L Potassium 3.9 (3.5-5.1) mmol/L Chloride 102 (98-107) mmol/L Carbon Dioxide 24 (21-32) mmol/L Anion Gap 8 (3-11) BUN 24 H (6-23) mg/dl Creatinine 0.95 (0.6-1.2) mg/dl Est Cr Clr Drug Dosing 45.3 ml/min Est GFR ( Amer) 67.0 ml/min Est GFR (Non-Af Amer) 57.8 ml/min BUN/Creatinine Ratio 25.3 H (10-20) Glucose 160 H (70-99(Fasting)) mg/dl Lactate (0.4-2.0) mmol/L Calcium 10.3 (8.6-10.3) mg/dl Magnesium 1.8 (1.7-2.4) mg/dl Total Bilirubin 1.0 (0.2-1.0) mg/dl AST 14 (13-39) U/L ALT 16 (7-52) U/L Alkaline Phosphatase 128 H (34-104) U/L Troponin I High Sens 18.3 H (0-14) pg/ml Total Protein 7.2 (6.0-8.3) gm/dl Albumin 4.0 (3.4-5.0) gm/dl Globulin 3.2 (2.5-4.0) gm/dl Albumin/Globulin Ratio 1.3 (0.9-2) Lipase 8 L (11-82) U/L Urine Color Dewey Urine Appearance Turbid A (Clear) Urine pH 5.5 (4.5-7.5) Ur Specific [place] 1.020 (1.000-1.030) Urine Protein 3+ H (Negative) Urine Glucose (UA) Negative (Negative) Urine Ketones Trace H (Negative) Urine Blood 3+ H (Negative) Urine Nitrite Positive A (Negative) Urine Bilirubin 1+ H (Negative) Urine Urobilinogen Negative (Negative) Ur Leukocyte Esterase 3+ H (Negative) Urine WBC (Auto) >50 H (0-5) /hpf Urine RBC (Auto) >20 H (0-2) /hpf U Hyaline Cast (Auto) >20 H (0-2) /lpf U Epithel Cells (Auto) 11-20 H (0-2) /hpf Urine Bacteria (Auto) 4+ H (None Seen) Hyaline Casts Present A (None Presnt) /lpf Granular Casts Present A (None Prsent) /lpf Adenovirus (PCR) Not Detected (NotDetected) B. pertussis DNA (PCR) Not Detected (NotDetected) B.parapertussis DNA PCR Not Detected (NotDetected) C. pneumoniae DNA (PCR) Not Detected (NotDetected) Coronavirus OC43 (PCR) Not Detected (NotDetected) Coronavirus HKU1 (PCR) Not Detected (NotDetected) Coronavirus 229E (PCR) Not Detected (NotDetected) SARS-CoV-2 (PCR) Not Detected (NotDetected) Coronavirus NL63 (PCR) Not Detected (NotDetected) Human Metapneumovir PCR Not Detected (NotDetected) Influenza Type A (PCR) Not Detected (NotDetected) Influenza Type B (PCR) Not Detected (NotDetected) M. pneumoniae (PCR) Not Detected (NotDetected) Parainfluenza 1 (PCR) Not Detected (NotDetected) Parainfluenza 2 (PCR) Not Detected (NotDetected) Parainfluenza 3 (PCR) Not Detected (NotDetected) Parainfluenza 4 (PCR) Not Detected (NotDetected) RSV (PCR) Not Detected (NotDetected) Entero/Rhino (PCR) Not Detected (NotDetected) 09/05/23 Range/Units 23:18 WBC (4.8-10.8) K/ul RBC (4.20-5.40) M/uL Hgb (12.0-16.0) g/dl Hct (37.0-47.0) % MCV (80.0-100.0) fL MCH (25.0-34.0) pg MCHC (32.0-36.0) g/dL RDW Std Deviation (36.4-46.3) fL RDW Coeff of Tim (11.5-14.5) % Plt Count (130-400) K/uL MPV (9.4-12.4) fL Immature Gran % (Auto) % Neut % (Auto) % Lymph % (Auto) % Foster % (Auto) % Eos % (Auto) % Baso % (Auto) % Neut # (Auto) (1.40-6.50) K/uL Lymph # (Auto) (1.20-3.40) K/uL Foster # (Auto) (0.11-0.59) K/uL Eos # (Auto) (0.00-0.50) K/uL Baso # (Auto) (0.00-0.20) K/uL Immature Gran # (Auto) (0.01-0.20) K/uL PT (9.0-12.0) Seconds INR (0.9-1.1) Sodium (136-145) mmol/L Potassium (3.5-5.1) mmol/L Chloride (98-107) mmol/L Carbon Dioxide (21-32) mmol/L Anion Gap (3-11) BUN (6-23) mg/dl Creatinine (0.6-1.2) mg/dl Est Cr Clr Drug Dosing ml/min Est GFR ( Amer) ml/min Est GFR (Non-Af Amer) ml/min BUN/Creatinine Ratio (10-20) Glucose (70-99(Fasting)) mg/dl Lactate 0.9 (0.4-2.0) mmol/L Calcium (8.6-10.3) mg/dl Magnesium (1.7-2.4) mg/dl Total Bilirubin (0.2-1.0) mg/dl AST (13-39) U/L ALT (7-52) U/L Alkaline Phosphatase (34-104) U/L Troponin I High Sens (0-14) pg/ml Total Protein (6.0-8.3) gm/dl Albumin (3.4-5.0) gm/dl Globulin (2.5-4.0) gm/dl Albumin/Globulin Ratio (0.9-2) Lipase (11-82) U/L Urine Color Urine Appearance (Clear) Urine pH (4.5-7.5) Ur Specific [place] (1.000-1.030) Urine Protein (Negative) Urine Glucose (UA) (Negative) Urine Ketones (Negative) Urine Blood (Negative) Urine Nitrite (Negative) Urine Bilirubin (Negative) Urine Urobilinogen (Negative) Ur Leukocyte Esterase (Negative) Urine WBC (Auto) (0-5) /hpf Urine RBC (Auto) (0-2) /hpf U Hyaline Cast (Auto) (0-2) /lpf U Epithel Cells (Auto) (0-2) /hpf Urine Bacteria (Auto) (None Seen) Hyaline Casts (None Presnt) /lpf Granular Casts (None Prsent) /lpf Adenovirus (PCR) (NotDetected) B. pertussis DNA (PCR) (NotDetected) B.parapertussis DNA PCR (NotDetected) C. pneumoniae DNA (PCR) (NotDetected) Coronavirus OC43 (PCR) (NotDetected) Coronavirus HKU1 (PCR) (NotDetected) Coronavirus 229E (PCR) (NotDetected) SARS-CoV-2 (PCR) (NotDetected) Coronavirus NL63 (PCR) (NotDetected) Human Metapneumovir PCR (NotDetected) Influenza Type A (PCR) (NotDetected) Influenza Type B (PCR) (NotDetected) M. pneumoniae (PCR) (NotDetected) Parainfluenza 1 (PCR) (NotDetected) Parainfluenza 2 (PCR) (NotDetected) Parainfluenza 3 (PCR) (NotDetected) Parainfluenza 4 (PCR) (NotDetected) RSV (PCR) (NotDetected) Entero/Rhino (PCR) (NotDetected) Administered Medications Sodium Chloride (Nss) 1,000 mls @ 999 mls/hr IV .Q1H1M ONE Stop: 09/06/23 00:24 Last Admin: 09/05/23 23:34 Dose: 999 mls/hr Documented By: YURY Discontinued Medications Sodium Chloride (Nss) 1,000 mls @ 999 mls/hr IV .Q1H1M ONE Stop: 09/05/23 21:31 Last Infusion: 09/05/23 22:12 Dose: Infused Documented By: Admin: 09/05/23 21:09 Dose: 999 mls/hr Documented By: YURY Piperacillin Sod/Tazobactam Sod (Zosyn) 4.5 gm in 100 mls @ 200 mls/hr IV NOW ONE Stop: 09/05/23 23:18 Last Admin: 09/05/23 23:21 Dose: 200 mls/hr Documented By: YURY Ioversol (Optiray 320 100ml) 93 ml IV ONCE ONE Stop: 09/05/23 22:00 Last Admin: 09/05/23 22:00 Dose: 93 ml Documented By: RIZWAN Ondansetron HCl (Ondansetron Inj 2 Mg/Ml 2 Ml Vial) 4 mg IV NOW STA Stop: 09/05/23 20:32 Last Admin: 09/05/23 21:07 Dose: 4 mg Documented By: YURY Imaging Data Radiologist's Impression: Abdomen/Pelvis CT 09/05/23 21:05 Exam(s): CT ABDOMEN + PELVIS With Contrast IV Amt: 93ml EXAM: CT Abdomen and Pelvis With Intravenous Contrast CLINICAL HISTORY: diarrhea; recent diverticulitis. TECHNIQUE: Axial computed tomography images of the abdomen and pelvis with intravenous contrast. CTDI is 15.75 mGy and DLP is 823.2 mGy-cm. Automated exposure control was utilized for the study. A dose lowering technique was utilized adhering to the principles of ALARA. CONTRAST: Patient received 93ml of IV contrast COMPARISON: CT abdomen and pelvis with contrast dated 08/17/2023 FINDINGS: Lung bases: Unremarkable. No mass. No consolidation. Mediastinum: Small hiatal hernia. ABDOMEN: Liver: Unremarkable. No mass. Gallbladder and bile ducts: Unremarkable. No calcified stones. No ductal dilation. Pancreas: Unremarkable. No mass. No ductal dilation. Spleen: Unremarkable. No splenomegaly. Adrenals: Unremarkable. No mass. Kidneys and ureters: When compared to the previous examination, there has been interval placement of a left double-J ureteral stent with the previously noted proximal left ureteral stone no longer evident. There is mild left hydronephrosis. There is subtle heterogeneous enhancement with some suggestion of striation involving the left kidney and asymmetric left perinephric fat stranding. The right kidney is stable in appearance. No abnormal enhancement. No hydronephrosis. Stomach and bowel: There is new mucosal thickening of the terminal ileum and ileocecal region with surrounding fat stranding and minimal fluid. This is more prominent than on the previous examination. No evidence for retrograde small bowel obstruction at this time. Extensive diverticulosis, primarily involving the left colon. No definitive diverticulitis. The stomach is decompressed. PELVIS: Appendix: No findings to suggest acute appendicitis. Bladder: Mucosal prominence of the bladder is presumed related to underdistention. The distal ureteral stent is noted in the bladder. There is some gas noted in the bladder. No bladder stones. Reproductive: Status post hysterectomy. ABDOMEN and PELVIS: Intraperitoneal space: Unremarkable. No free air. No significant fluid collection. Bones/joints: No acute fracture. No dislocation. Soft tissues: Unremarkable. Vasculature: Unremarkable. No abdominal aortic aneurysm. Lymph nodes: Unremarkable. No enlarged lymph nodes. Tubes, lines and devices: Incidental neurostimulator generator overlying the right gluteal soft tissues. A single lead extends through a left S3-S4 foramina. IMPRESSION: 1. There is new mucosal thickening of the terminal ileum and ileocecal region with surrounding fat stranding and minimal fluid. This is more prominent than on the previous examination. No evidence for retrograde small bowel obstruction at this time. Findings are most consistent with developing infectious or inflammatory terminal ileitis. No abscess or pneumoperitoneum. 2. When compared to the previous examination, there has been interval placement of a left double-J ureteral stent with the previously noted proximal left ureteral stone no longer evident. There is mild left hydronephrosis. There is subtle heterogeneous enhancement with some suggestion of striation involving the left kidney and asymmetric left perinephric fat stranding. Findings are suspicious for developing left pyelonephritis. No perinephric abscess. Electronically signed by: Christian Lama MD 09/05/23 22:43 PM Discharge Plan Visit Data Chief Complaint: Flu Like Symptoms Stated Complaint: VOMITING, ABD PAIN, LEG PAIN/BOTH, DIARRHEA ED Provider: Yaa Rivera Discharge Problem: Sepsis, Acute UTI (urinary tract infection), Acute pyelonephritis, Nausea, vomiting, and diarrhea, Leukocytosis, Elevated troponin Forms Stand Alone Forms: My [facility] Prescriptions Prescriptions: No Action lisinopril 20 mg Tablet 20 mg PO QAM sertraline 100 mg Tablet 100 mg PO QAM amlodipine 2.5 mg Tablet 2.5 mg PO QPM metoprolol tartrate 50 mg Tablet 50 mg PO BID rosuvastatin 5 mg tablet 5 mg PO QAM magnesium oxide 400 mg magnesium Capsule 400 mg PO QPM tamsulosin 0.4 mg capsule 0.4 mg PO QAM Referrals Referrals: Leta Guerrier DO [Primary Care Provider] -
[2023-09-05] MEDS: ONDANSETRON INJ 2 MG/ML 2 ML VIAL IV STA (21:07)
[2023-09-05 21:08] LABS: Basophils # (auto) 0.03 K/uL (0.00-0.20); Basophils % (auto) 0.2 %; Hemoglobin 12.6 g/dl (12.0-16.0); Immature Granulocytes # (auto) 0.08 K/uL (0.01-0.20); Immature Granulocytes % (auto) 0.6 %; Lymphocytes # (auto) 0.41 K/uL (1.20-3.40); Lymphocytes % (auto) 2.9 %; Mean Corpuscular Hemoglobin 30.7 pg (25.0-34.0); Mean Corpuscular Hgb Conc 33.2 g/dL (32.0-36.0); Mean Corpuscular Volume 92.7 fL (80.0-100.0); Mean Platelet Volume 8.8 fL (9.4-12.4); Monocytes # (auto) 0.94 K/uL (0.11-0.59); Monocytes % (auto) 6.7 %; Neutrophils % (auto) 89.6 %; Platelet Count 238 K/uL (130-400); RDW Coefficient of Variation 13.9 % (11.5-14.5); RDW Standard Deviation 47.3 fL (36.4-46.3); White Blood Count 14.06 K/ul (4.8-10.8)
[2023-09-05] MEDS: SODIUM CHLORIDE 0.9% 1,000 ML IV ONE ×2 (21:09→23:34)
[2023-09-05 21:18] LABS: Albumin Globulin Ratio 1.3 (0.9-2); BUN Creatinine Ratio 25.3 (10-20); Calcium 10.3 mg/dl (8.6-10.3); Creatinine Clr Calc Pharmacy 45.3 ml/min; Est GFR (Non-African American) 57.8 ml/min; Globulin 3.2 gm/dl (2.5-4.0); Magnesium 1.8 mg/dl (1.7-2.4); Potassium 3.9 mmol/L (3.5-5.1); Total Protein 7.2 gm/dl (6.0-8.3)
[2023-09-05 21:24] LABS: Troponin I High Sensitivity 18.3 pg/ml (0-14)
[2023-09-05 21:26] LABS: INR 1.1 (0.9-1.1); Prothrombin Time 11.4 Seconds (9.0-12.0)
[2023-09-05 21:53] LABS: Adenovirus PCR Not Detected (NotDetected); Bordetella parapertussis PCR Not Detected (NotDetected); Bordetella pertussis PCR Not Detected (NotDetected); Chlamydia pneumoniae PCR Not Detected (NotDetected); Coronavirus 229E PCR Not Detected (NotDetected); Coronavirus CoV-2 (COVID19)PCR Not Detected (NotDetected); Coronavirus HKU1 PCR Not Detected (NotDetected); Coronavirus NL63 PCR Not Detected (NotDetected); Coronavirus OC43PCR Not Detected (NotDetected); Human Metapneumovirus PCR Not Detected (NotDetected); Influenza A PCR Not Detected (NotDetected); Influenza B PCR Not Detected (NotDetected); Mycoplasma pneumoniae PCR Not Detected (NotDetected); Parainfluenza Virus 1 PCR Not Detected (NotDetected); Parainfluenza Virus 2 PCR Not Detected (NotDetected); Parainfluenza Virus 3 PCR Not Detected (NotDetected); Parainfluenza Virus 4 PCR Not Detected (NotDetected); Respiratory Syncytial VirusPCR Not Detected (NotDetected); Rhinovirus/Enterovirus PCR Not Detected (NotDetected)
[2023-09-05] MEDS: OPTIRAY 320 100ml IV ONE (22:00)
--- NOTE | 2023-09-05 22:44 | CT Scan Report ---
Exam(s): CT ABDOMEN + PELVIS With Contrast IV Amt: 93ml EXAM: CT Abdomen and Pelvis With Intravenous Contrast CLINICAL HISTORY: diarrhea; recent diverticulitis. TECHNIQUE: Axial computed tomography images of the abdomen and pelvis with intravenous contrast. CTDI is 15.75 mGy and DLP is 823.2 mGy-cm. Automated exposure control was utilized for the study. A dose lowering technique was utilized adhering to the principles of ALARA. CONTRAST: Patient received 93ml of IV contrast COMPARISON: CT abdomen and pelvis with contrast dated 08/17/2023 FINDINGS: Lung bases: Unremarkable. No mass. No consolidation. Mediastinum: Small hiatal hernia. ABDOMEN: Liver: Unremarkable. No mass. Gallbladder and bile ducts: Unremarkable. No calcified stones. No ductal dilation. Pancreas: Unremarkable. No mass. No ductal dilation. Spleen: Unremarkable. No splenomegaly. Adrenals: Unremarkable. No mass. Kidneys and ureters: When compared to the previous examination, there has been interval placement of a left double-J ureteral stent with the previously noted proximal left ureteral stone no longer evident. There is mild left hydronephrosis. There is subtle heterogeneous enhancement with some suggestion of striation involving the left kidney and asymmetric left perinephric fat stranding. The right kidney is stable in appearance. No abnormal enhancement. No hydronephrosis. Stomach and bowel: There is new mucosal thickening of the terminal ileum and ileocecal region with surrounding fat stranding and minimal fluid. This is more prominent than on the previous examination. No evidence for retrograde small bowel obstruction at this time. Extensive diverticulosis, primarily involving the left colon. No definitive diverticulitis. The stomach is decompressed. PELVIS: Appendix: No findings to suggest acute appendicitis. Bladder: Mucosal prominence of the bladder is presumed related to underdistention. The distal ureteral stent is noted in the bladder. There is some gas noted in the bladder. No bladder stones. Reproductive: Status post hysterectomy. ABDOMEN and PELVIS: Intraperitoneal space: Unremarkable. No free air. No significant fluid collection. Bones/joints: No acute fracture. No dislocation. Soft tissues: Unremarkable. Vasculature: Unremarkable. No abdominal aortic aneurysm. Lymph nodes: Unremarkable. No enlarged lymph nodes. Tubes, lines and devices: Incidental neurostimulator generator overlying the right gluteal soft tissues. A single lead extends through a left S3-S4 foramina. IMPRESSION: 1. There is new mucosal thickening of the terminal ileum and ileocecal region with surrounding fat stranding and minimal fluid. This is more prominent than on the previous examination. No evidence for retrograde small bowel obstruction at this time. Findings are most consistent with developing infectious or inflammatory terminal ileitis. No abscess or pneumoperitoneum. 2. When compared to the previous examination, there has been interval placement of a left double-J ureteral stent with the previously noted proximal left ureteral stone no longer evident. There is mild left hydronephrosis. There is subtle heterogeneous enhancement with some suggestion of striation involving the left kidney and asymmetric left perinephric fat stranding. Findings are suspicious for developing left pyelonephritis. No perinephric abscess. Electronically signed by: Christian Lama MD 09/05/23 22:43 PM
[2023-09-05 23:00] LABS: Appearance Urine Turbid (Clear); Bacteria Urine Automated 4+ (None Seen); Bilirubin Urine 1+ (Negative); Blood Urine 3+ (Negative); Cast Urine Automated >20 /lpf (0-2); Color Urine Orange; Glucose Urine UA Negative (Negative); Granular Casts Urine Present /lpf (None Prsent); Hyaline Casts Urine Present /lpf (None Presnt); Ketones Urine Trace (Negative); Leukocyte Esterase Urine 3+ (Negative); Nitrite Urine Positive (Negative); Protein Urine 3+ (Negative); RBC Urine Automated >20 /hpf (0-2); Urobilinogen Urine Negative (Negative); WBC Urine Automated >50 /hpf (0-5); pH Urine 5.5 (4.5-7.5)
[2023-09-05] MEDS: PIPERACILLIN/TAZOBACTAM 4.5 GM/100 ML BAG IV ONE (23:21)
[2023-09-05] MEDS: ACETAMINOPHEN 1,000 MG/100 ML VIAL IV STA (23:56)
--- NOTE | 2023-09-06 01:33 | History & Physical Report ---
Date of Service September 06, 2023 Assessment & Plan (1) Acute pyelonephritis: Plan: 78-year-old female with past medical history significant for dyslipidemia, hypertension, diverticulosis of colon, female incontinence, depression, neurostimulator device, mood disorder comes in because of nausea vomiting and diarrhea going on for last 2 days. She has several episodes of vomiting. No blood in the vomitus. And she had several episodes of diarrhea today. Denies any blood in the stools. Has abdominal discomfort. In the ER she was spiking temperature. Has had a headache because she did not eat anything today. No blurred vision. No runny nose. No sore throat. No cough. No chest pain or shortness of breath. Micturating okay. Hemodynamics are okay. Patient was recently in the hospital for diverticulitis and also obstructive uropathy s/p left ureteral stent placement. There is a plan for cystoscopy and stone extraction but on the CAT scan today the stone is not visible. UA came back positive. CT scan showing ileitis. Acute pyelonephritis recent obstructive uropathy s/p left ureteral stent placement UA positive ER started on Zosyn which will be continued will follow cultures IV fluids continue Flomax urology consult nausea vomiting and diarrhea recent antibiotics for diverticulitis CT scan showing ileitis continue Zosyn will follow stool cultures and stool for C. difficile empiric p.o. vancomycin GI consult hypertension will hold amlodipine and lisinopril for now as patient having fever and diarrhea and possible sepsis metoprolol with holding parameters close monitor hyperlipidemia on statin depression on Zoloft DVT prophylaxis Lovenox disposition med/ telemetry full code History of Present Illness Chief Complaint: nausea, vomiting and diarrhea Primary Care Provider: Leta Guerrier DO 78-year-old female with past medical history significant for dyslipidemia, hypertension, diverticulosis of colon, female incontinence, depression, neurostimulator device, mood disorder comes in because of nausea vomiting and diarrhea going on for last 2 days. She has several episodes of vomiting. No blood in the vomitus. And she had several episodes of diarrhea today. Denies any blood in the stools. Has abdominal discomfort. In the ER she was spiking temperature. Has had a headache because she did not eat anything today. No blurred vision. No runny nose. No sore throat. No cough. No chest pain or shortness of breath. Micturating okay. Hemodynamics are okay. Patient was recently in the hospital for diverticulitis and also obstructive uropathy s/p left ureteral stent placement. There is a plan for cystoscopy and stone extraction but on the CAT scan today the stone is not visible. UA came back positive. CT scan showing ileitis. Past med history. As mentioned above. Past surgical history. Colonoscopy, correction of bladder defect, implantation of neurostimulator, bladder surgery, hemorrhoid surgery, removal of ovaries, tonsillectomy adenoidectomy, total hysterectomy. Social history. No smoking. No alcohol use. No drug use. Family history. Daughter had breast cancer. Colon cancer. Mother had emphysema. Hypertension. Sister has hypertension. Maternal grandmother had stroke. Sister has thyroid disorder. Brother has heart disorder. Allergies Allergy/AdvReac Type Severity Reaction Status Date / Time ciprofloxacin Allergy Intermediate RASH, CAN Verified 08/27/23 15:32 NOT TAKE WITH CALCIUM metronidazole Allergy Intermediate METALLIC Verified 08/27/23 15:32 TASTE niacin Allergy Intermediate Hives Verified 08/27/23 15:32 oxybutynin Allergy Intermediate metal Verified 08/27/23 15:32 taste in mough Sulfa (Sulfonamide Allergy Intermediate BAD TASTE Verified 08/27/23 15:32 Antibiotics) IN MOUTH oxycodone [From Percocet] AdvReac Intermediate HALLUCINATI Verified 08/27/23 15:32 ONS simvastatin [From Zocor] AdvReac Unknown didn't work Verified 08/27/23 15:32 Home Medications Medication Instructions Recorded Confirmed Type amlodipine 2.5 mg tablet 2.5 mg PO QPM 09/03/22 09/05/23 History lisinopril 20 mg tablet 20 mg PO QAM 09/03/22 09/05/23 History metoprolol tartrate 50 mg tablet 50 mg PO BID 09/03/22 09/05/23 History sertraline 100 mg tablet 100 mg PO QAM 09/03/22 09/05/23 History rosuvastatin 5 mg tablet 5 mg PO QAM 08/18/23 09/05/23 History magnesium oxide 400 mg PO QPM 08/27/23 09/05/23 History tamsulosin 0.4 mg capsule 0.4 mg PO QAM 09/05/23 09/05/23 History Past Med/Surg History Problem List (Updated 09/06/23 @ 01:58 by Background Daemon) Elevated troponin (Acute) Leukocytosis (Acute) Nausea, vomiting, and diarrhea (Acute) Acute pyelonephritis (Acute) Acute UTI (urinary tract infection) (Acute) Sepsis (Acute) Encounter for preoperative assessment (Acute) Right shoulder pain Calculus of proximal left ureter (Acute) Medical History (Updated 09/06/23 @ 01:58 by Background Daemon) Urge incontinence Bladder stimulator in placed- educated to bring remote DOS Disorder of right rotator cuff Dx'ed with rotator cuff tear 07/2023 Arthritis History of diverticulitis Mild diverticulitis on 08/18/23 A/P CT scan during [facility] admission- discharged on PO Augmentin Anxiety and depression Leg cramping hx (reason for magnesium) Kidney stone on left side HLD (hyperlipidemia) HTN (hypertension) Surgical History History of cystoscopy Cystoscopy with left retrograde pyelogram, and Left Stent Placement 08/19/23 [facility] H/O foot surgery right/left History of colonoscopy History of tooth extraction History of tonsillectomy and adenoidectomy H/O: hysterectomy Family History Brother Prostate cancer Nephrolithiasis Other No family history of adverse response to anesthesia No pertinent family history Denies family history of Bladder cancer Bleeding disorder Kidney carcinoma Social History Smoking Status: Never smoker Second Hand Exposure: Yes (in the past); Do You Dip or Chew Tobacco: No; Hx Alcohol Use: No Hx Substance Use: No Preferred Language: Divehi Communication Ability: Effective Hearing Ability: Normal Golf Ball Inspector Required: No Beliefs That Will Affect Care: None Current Living Situation: Alone Current Living Situation Comment: son rajni lives next door current occupational status: retired Feels Safe at Home: Yes Safety Concerns: Feels Safe At This Time Assistive Devices: None Review of Systems Review of Systems: All systems reviewed & are unremarkable except as noted in HPI & below Physical Exam Physical Exam: General- Not in distress Head- atraumatic Eyes- PERRL. ENT- oropharynx clear Neck- supple, no JVD. Lungs- clear to auscultation no wheezing or crackles. Heart- regular rate and rhythm; no murmur, no gallop. Abdomen- normal bowel sounds, soft, mild diffuse discomfort, no distension Extremities- no pretibial edema, no erythema seen. Neuro- alert, oriented , PERRL, no facial palsy; no dysarthria; moves extremities. Skin- warm & dry Results & Data Results & Data Vital Signs (Past 12 Hours) Vital Signs Temp Pulse Pulse Resp BP BP Pulse Ox 09/06/23 01:02 75 09/06/23 01:00 73 22 110/52 L 95 09/06/23 00:39 37.4 C 74 22 102/52 L 92 09/06/23 00:30 76 24 102/52 L 92 09/06/23 00:00 80 20 145/70 H 98 09/05/23 23:30 75 23 141/61 H 92 09/05/23 23:00 38.6 C H 77 20 139/62 92 09/05/23 22:51 79 22 139/62 92 09/05/23 22:12 79 20 125/54 L 94 09/05/23 22:10 99 09/05/23 22:05 88 L 09/05/23 21:33 75 18 95 09/05/23 21:27 92 09/05/23 21:25 74 16 93 09/05/23 21:23 74 16 127/63 90 09/05/23 21:20 74 16 90 09/05/23 21:09 74 17 127/63 91 09/05/23 20:57 74 09/05/23 20:57 74 20 95 09/05/23 20:22 36.7 C 87 19 127/75 94 O2 Del Method O2 Flow Rate 09/06/23 01:02 09/06/23 01:00 Nasal Cannula 2 09/06/23 00:39 Room Air 09/06/23 00:30 Room Air 09/06/23 00:00 Nasal Cannula 2 09/05/23 23:30 Room Air 09/05/23 23:00 Nasal Cannula 2 09/05/23 22:51 Room Air 09/05/23 22:12 Room Air 09/05/23 22:10 Nasal Cannula 2 09/05/23 22:05 Room Air 09/05/23 21:33 Nasal Cannula 2 09/05/23 21:27 Nasal Cannula 1 09/05/23 21:25 Nasal Cannula 1 09/05/23 21:23 Room Air 09/05/23 21:20 Room Air 09/05/23 21:09 Nasal Cannula 1 09/05/23 20:57 09/05/23 20:57 Room Air 09/05/23 20:22 Room Air Diagnostic Findings Laboratory Results WBC 14.06 K/ul (4.8-10.8) H 09/05/23 20:38 RBC 4.10 M/uL (4.20-5.40) L 09/05/23 20:38 Hgb 12.6 g/dl (12.0-16.0) 09/05/23 20:38 Hct 38.0 % (37.0-47.0) 09/05/23 20:38 MCV 92.7 fL (80.0-100.0) 09/05/23 20:38 MCH 30.7 pg (25.0-34.0) 09/05/23 20:38 MCHC 33.2 g/dL (32.0-36.0) 09/05/23 20:38 RDW Std Deviation 47.3 fL (36.4-46.3) H 09/05/23 20:38 RDW Coeff of Tim 13.9 % (11.5-14.5) 09/05/23 20:38 Plt Count 238 K/uL (130-400) 09/05/23 20:38 MPV 8.8 fL (9.4-12.4) L 09/05/23 20:38 Immature Gran % (Auto) 0.6 % 09/05/23 20:38 Neut % (Auto) 89.6 % 09/05/23 20:38 Lymph % (Auto) 2.9 % 09/05/23 20:38 [place] % (Auto) 6.7 % 09/05/23 20:38 Eos % (Auto) 0.0 % 09/05/23 20:38 Baso % (Auto) 0.2 % 09/05/23 20:38 Neut # (Auto) 12.60 K/uL (1.40-6.50) H 09/05/23 20:38 Lymph # (Auto) 0.41 K/uL (1.20-3.40) L 09/05/23 20:38 Cannon # (Auto) 0.94 K/uL (0.11-0.59) H 09/05/23 20:38 Eos # (Auto) 0.00 K/uL (0.00-0.50) 09/05/23 20:38 Baso # (Auto) 0.03 K/uL (0.00-0.20) 09/05/23 20:38 Immature Gran # (Auto) 0.08 K/uL (0.01-0.20) 09/05/23 20:38 PT 11.4 Seconds (9.0-12.0) 09/05/23 20:38 INR 1.1 (0.9-1.1) 09/05/23 20:38 Sodium 134 mmol/L (136-145) L 09/05/23 20:38 Potassium 3.9 mmol/L (3.5-5.1) 09/05/23 20:38 Chloride 102 mmol/L (98-107) 09/05/23 20:38 Carbon Dioxide 24 mmol/L (21-32) 09/05/23 20:38 Anion Gap 8 (3-11) 09/05/23 20:38 BUN 24 mg/dl (6-23) H 09/05/23 20:38 Creatinine 0.95 mg/dl (0.6-1.2) 09/05/23 20:38 Est Cr Clr Drug Dosing 45.3 ml/min 09/05/23 20:38 Est GFR ( Amer) 67.0 ml/min 09/05/23 20:38 Est GFR (Non-Af Amer) 57.8 ml/min 09/05/23 20:38 BUN/Creatinine Ratio 25.3 (10-20) H 09/05/23 20:38 Glucose 160 mg/dl (70-99(Fasting)) H 09/05/23 20:38 Lactate 0.9 mmol/L (0.4-2.0) 09/05/23 23:18 Calcium 10.3 mg/dl (8.6-10.3) 09/05/23 20:38 Magnesium 1.8 mg/dl (1.7-2.4) 09/05/23 20:38 Total Bilirubin 1.0 mg/dl (0.2-1.0) 09/05/23 20:38 AST 14 U/L (13-39) 09/05/23 20:38 ALT 16 U/L (7-52) 09/05/23 20:38 Alkaline Phosphatase 128 U/L (34-104) H 09/05/23 20:38 Troponin I High Sens 18.3 pg/ml (0-14) H 09/05/23 20:38 Total Protein 7.2 gm/dl (6.0-8.3) 09/05/23 20:38 Albumin 4.0 gm/dl (3.4-5.0) 09/05/23 20:38 Globulin 3.2 gm/dl (2.5-4.0) 09/05/23 20:38 Albumin/Globulin Ratio 1.3 (0.9-2) 09/05/23 20:38 Lipase 8 U/L (11-82) L 09/05/23 20:38 Procalcitonin 1.20 ng/ml (0-0.5) H 09/06/23 00:26 Urine Color [place] 09/05/23 21:49 Urine Appearance Turbid (Clear) A 09/05/23 21:49 Urine pH 5.5 (4.5-7.5) 09/05/23 21:49 Ur Specific [place] 1.020 (1.000-1.030) 09/05/23 21:49 Urine Protein 3+ (Negative) H 09/05/23 21:49 Urine Glucose (UA) Negative (Negative) 09/05/23 21:49 Urine Ketones Trace (Negative) H 09/05/23 21:49 Urine Blood 3+ (Negative) H 09/05/23 21:49 Urine Nitrite Positive (Negative) A 09/05/23 21:49 Urine Bilirubin 1+ (Negative) H 09/05/23 21:49 Urine Urobilinogen Negative (Negative) 09/05/23 21:49 Ur Leukocyte Esterase 3+ (Negative) H 09/05/23 21:49 Urine WBC (Auto) >50 /hpf (0-5) H 09/05/23 21:49 Urine RBC (Auto) >20 /hpf (0-2) H 09/05/23 21:49 U Hyaline Cast (Auto) >20 /lpf (0-2) H 09/05/23 21:49 U Epithel Cells (Auto) 11-20 /hpf (0-2) H 09/05/23 21:49 Urine Bacteria (Auto) 4+ (None Seen) H 09/05/23 21:49 Hyaline Casts Present /lpf (None Presnt) A 09/05/23 21:49 Granular Casts Present /lpf (None Prsent) A 09/05/23 21:49 Adenovirus (PCR) Not Detected (NotDetected) 09/05/23 20:40 B. pertussis DNA (PCR) Not Detected (NotDetected) 09/05/23 20:40 B.parapertussis DNA PCR Not Detected (NotDetected) 09/05/23 20:40 C. pneumoniae DNA (PCR) Not Detected (NotDetected) 09/05/23 20:40 Coronavirus OC43 (PCR) Not Detected (NotDetected) 09/05/23 20:40 Coronavirus HKU1 (PCR) Not Detected (NotDetected) 09/05/23 20:40 Coronavirus 229E (PCR) Not Detected (NotDetected) 09/05/23 20:40 SARS-CoV-2 (PCR) Not Detected (NotDetected) 09/05/23 20:40 Coronavirus NL63 (PCR) Not Detected (NotDetected) 09/05/23 20:40 Human Metapneumovir PCR Not Detected (NotDetected) 09/05/23 20:40 Influenza Type A (PCR) Not Detected (NotDetected) 09/05/23 20:40 Influenza Type B (PCR) Not Detected (NotDetected) 09/05/23 20:40 M. pneumoniae (PCR) Not Detected (NotDetected) 09/05/23 20:40 Parainfluenza 1 (PCR) Not Detected (NotDetected) 09/05/23 20:40 Parainfluenza 2 (PCR) Not Detected (NotDetected) 09/05/23 20:40 Parainfluenza 3 (PCR) Not Detected (NotDetected) 09/05/23 20:40 Parainfluenza 4 (PCR) Not Detected (NotDetected) 09/05/23 20:40 RSV (PCR) Not Detected (NotDetected) 09/05/23 20:40 Entero/Rhino (PCR) Not Detected (NotDetected) 09/05/23 20:40 Impressions Abdomen/Pelvis CT 09/05/23 21:05 Exam(s): CT ABDOMEN + PELVIS With Contrast IV Amt: 93ml EXAM: CT Abdomen and Pelvis With Intravenous Contrast CLINICAL HISTORY: diarrhea; recent diverticulitis. TECHNIQUE: Axial computed tomography images of the abdomen and pelvis with intravenous contrast. CTDI is 15.75 mGy and DLP is 823.2 mGy-cm. Automated exposure control was utilized for the study. A dose lowering technique was utilized adhering to the principles of ALARA. CONTRAST: Patient received 93ml of IV contrast COMPARISON: CT abdomen and pelvis with contrast dated 08/17/2023 FINDINGS: Lung bases: Unremarkable. No mass. No consolidation. Mediastinum: Small hiatal hernia. ABDOMEN: Liver: Unremarkable. No mass. Gallbladder and bile ducts: Unremarkable. No calcified stones. No ductal dilation. Pancreas: Unremarkable. No mass. No ductal dilation. Spleen: Unremarkable. No splenomegaly. Adrenals: Unremarkable. No mass. Kidneys and ureters: When compared to the previous examination, there has been interval placement of a left double-J ureteral stent with the previously noted proximal left ureteral stone no longer evident. There is mild left hydronephrosis. There is subtle heterogeneous enhancement with some suggestion of striation involving the left kidney and asymmetric left perinephric fat stranding. The right kidney is stable in appearance. No abnormal enhancement. No hydronephrosis. Stomach and bowel: There is new mucosal thickening of the terminal ileum and ileocecal region with surrounding fat stranding and minimal fluid. This is more prominent than on the previous examination. No evidence for retrograde small bowel obstruction at this time. Extensive diverticulosis, primarily involving the left colon. No definitive diverticulitis. The stomach is decompressed. PELVIS: Appendix: No findings to suggest acute appendicitis. Bladder: Mucosal prominence of the bladder is presumed related to underdistention. The distal ureteral stent is noted in the bladder. There is some gas noted in the bladder. No bladder stones. Reproductive: Status post hysterectomy. ABDOMEN and PELVIS: Intraperitoneal space: Unremarkable. No free air. No significant fluid collection. Bones/joints: No acute fracture. No dislocation. Soft tissues: Unremarkable. Vasculature: Unremarkable. No abdominal aortic aneurysm. Lymph nodes: Unremarkable. No enlarged lymph nodes. Tubes, lines and devices: Incidental neurostimulator generator overlying the right gluteal soft tissues. A single lead extends through a left S3-S4 foramina. IMPRESSION: 1. There is new mucosal thickening of the terminal ileum and ileocecal region with surrounding fat stranding and minimal fluid. This is more prominent than on the previous examination. No evidence for retrograde small bowel obstruction at this time. Findings are most consistent with developing infectious or inflammatory terminal ileitis. No abscess or pneumoperitoneum. 2. When compared to the previous examination, there has been interval placement of a left double-J ureteral stent with the previously noted proximal left ureteral stone no longer evident. There is mild left hydronephrosis. There is subtle heterogeneous enhancement with some suggestion of striation involving the left kidney and asymmetric left perinephric fat stranding. Findings are suspicious for developing left pyelonephritis. No perinephric abscess. Electronically signed by: Christian Lama MD 09/05/23 22:43 PM ECG Additional Comments: ECG. Normal sinus rhythm rate 73. No significant change was found. Code Status & VTE Plan VTE Prophylaxis Plan VTE Prophylaxis will be ordered: Yes
[2023-09-06] MEDS: CHERRY SYRUP 5 ML UDP PO ONE (02:21)
[2023-09-06] MEDS: VANCOMYCIN HCL 250 MG/5 ML SOLN PO STA (02:21)
[2023-09-06] MEDS ORDERED: NITROGLYCERIN SL 0.4 MG/TAB TAB SL PRN (03:58)
[2023-09-06] MEDS ORDERED: ONDANSETRON INJ 2 MG/ML 2 ML VIAL IV PRN (03:58)
[2023-09-06] MEDS: D5W AND NSS 1,000 ML IV SCH (04:07)
[2023-09-06] MEDS: VANCOMYCIN HCL 125 MG/2.5ML SOLN PO SCH (05:23)
[2023-09-06] MEDS: CHERRY SYRUP 5 ML UDP PO SCH (05:23)
[2023-09-06] MEDS: PIPERACILLIN/TAZOBACTAM 4.5 GM in DEXTROSE 5% MINI-B 100 ML IV SCH (05:23)
[2023-09-06 05:57] LABS: Basophils # (auto) 0.02 K/uL (0.00-0.20); Basophils % (auto) 0.2 %; Eosinophils # (auto) 0.01 K/uL (0.00-0.50); Eosinophils % (auto) 0.1 %; Hematocrit (blood only) 32.1 % (37.0-47.0); Hemoglobin 10.5 g/dl (12.0-16.0); Immature Granulocytes # (auto) 0.07 K/uL (0.01-0.20); Immature Granulocytes % (auto) 0.7 %; Lymphocytes % (auto) 3.7 %; Mean Corpuscular Hemoglobin 30.6 pg (25.0-34.0); Mean Corpuscular Hgb Conc 32.7 g/dL (32.0-36.0); Mean Corpuscular Volume 93.6 fL (80.0-100.0); Mean Platelet Volume 8.7 fL (9.4-12.4); Monocytes # (auto) 0.93 K/uL (0.11-0.59); Monocytes % (auto) 8.7 %; Neutrophils # (auto) 9.24 K/uL (1.40-6.50); Neutrophils % (auto) 86.6 %; Platelet Count 194 K/uL (130-400); RDW Coefficient of Variation 14.3 % (11.5-14.5); RDW Standard Deviation 48.7 fL (36.4-46.3); Red Blood Count 3.43 M/uL (4.20-5.40); White Blood Count 10.67 K/ul (4.8-10.8)
[2023-09-06 06:15] LABS: BUN Creatinine Ratio 22.7 (10-20); Calcium 9.1 mg/dl (8.6-10.3); Est GFR (African American) 65.3 ml/min; Est GFR (Non-African American) 56.3 ml/min; Magnesium 1.8 mg/dl (1.7-2.4); Phosphorus 2.8 mg/dl (2.5-4.9); Potassium 3.8 mmol/L (3.5-5.1)
--- NOTE | 2023-09-06 07:19 | XRay Report ---
XR chest 1V portable HISTORY: 78 years-old Female sepsis COMPARISON: 08/22/2023 TECHNIQUE: AP view of the chest FINDINGS: Cardiac silhouette is enlarged. Mild right hemidiaphragmatic elevation. No pneumothorax, pleural effu fabrizio, airspace consolidation or pulmonary edema. Bones of the chest appear grossly intact. IMPRESSION: No acute process. ACT 112: Negative or not required by law. The above report was generated using voice recognition software. It may contain grammatical, syntax o r spelling errors. Electronically signed by: Juancho Sears M.D. 09/06/2023 7:17 AM
[2023-09-06] MEDS: SERTRALINE HCL 100 MG TABLET PO SCH (10:18)
[2023-09-06] MEDS: METOPROLOL TARTRATE 50 MG TAB PO SCH (10:18)
[2023-09-06] MEDS: TAMSULOSIN HCL 0.4 MG CAP PO SCH (10:18)
[2023-09-06] MEDS: ROSUVASTATIN CALCIUM 5 MG TAB PO SCH (10:19)
[2023-09-06] MEDS: ENOXAPARIN INJ 40 MG/0.4 ML SYR SQ SCH (10:19)
--- NOTE | 2023-09-06 10:28 | Urology Consultation ---
Date of Consultation September 06, 2023 Assessment & Plan (1) Acute pyelonephritis: (2) Acute UTI (urinary tract infection): 78 yo/F admitted for acute pyelonephritis and ileitis after presenting with vomiting and diarrhea. She was recently admitted for diverticulitis and left ureteral stone status post left stent placement on 08/19/2023 and is pending stone treatment. Patient was febrile last night, Tmax 38.6 She is afebrile this morning and hemodynamically stable Labs todaycreatinine 0.97, WBC trending down (10.67) CT imaging shows stent in appropriate position; findings suggestive of developing left pyelonephritis, air within the bladder/renal collecting system possibly due to recent procedure versus infection Urinalysis grossly positive Urine and blood cultures are pending Continue broad-spectrum antibiotics and narrow per sensitivity data when available Recommend Correa catheter placement for maximum drainage No acute surgical intervention at this time Continue supportive care and antibiotics per hospital medicine service She is pending scheduled stone surgery on 09/12/[address] Saldana We will tentatively keep as scheduled presuming she is clinically improving and has been optimized on appropriate antibiotic course We discussed that surgery may need to be rescheduled depending on clinical course, she is understanding Plan of care reviewed with Dr. Saldana, urologist on-call will follow peripherally, please contact our service with any additional questions or concerns History of Present Illness Attending Physician: Orly Archuleta MD History of Present Illness This is a 78-year-old female with recent admission for diverticulitis and left ureteral stone status post left stent placement on 08/19/2023 who presented to the emergency department on 09/05/2023 for evaluation of diarrhea and vomiting. On arrival, she was afebrile and hemodynamically stable. Lab work showed leukocytosis of 14.06, hemoglobin 12.6, creatinine 0.95, sodium 134, normal lactate. Urinalysis showed turbid urine, 3+ blood, positive nitrates, 3+ LE, >50 WBC, >20 RBC, 11-20 epithelial cells and 4+ bacteria. Workup in the emergency department included CT A/P with contrast shows left ureteral stent in appropriate position, mild left hydronephrosis with air noted in the renal collecting system; subtle heterogeneous enhancement with some suggestion of striation involving the left kidney and asymmetric left perinephric fat stranding. There is gas within the bladder. Also noted findings suggestive of ileitis. ED course: IV fluids, Zosyn, ondansetron. She was admitted to the hospital medicine service for acute pyelonephritis and ileitis. She was febrile last night, Tmax 38.6 at 2300. Labs today-creatinine 0.97, WBC 10.67, hemoglobin 10.5. Urine and blood cultures are pending. She is on IV Zosyn and PO Vancomycin. Patient seen and examined at bedside this morning. She is resting in bed, no apparent distress. She denies abdominal or flank pain. No nausea or vomiting at present. Continues with diarrhea. She is ordered to have stool cultures and stool for C. difficile. She is voiding spontaneously. Notes intermittent hematuria, no dysuria. Notes some hesitancy with urination. No fever or chills at present. Allergies Allergy/AdvReac Type Severity Reaction Status Date / Time ciprofloxacin Allergy Intermediate RASH, CAN Verified 08/27/23 15:32 NOT TAKE WITH CALCIUM metronidazole Allergy Intermediate METALLIC Verified 08/27/23 15:32 TASTE niacin Allergy Intermediate Hives Verified 08/27/23 15:32 oxybutynin Allergy Intermediate metal Verified 08/27/23 15:32 taste in mough Sulfa (Sulfonamide Allergy Intermediate BAD TASTE Verified 08/27/23 15:32 Antibiotics) IN MOUTH oxycodone [From Percocet] AdvReac Intermediate HALLUCINATI Verified 08/27/23 15:32 ONS simvastatin [From Zocor] AdvReac Unknown didn't work Verified 08/27/23 15:32 Home Medications Medication Instructions Recorded Confirmed Type amlodipine 2.5 mg tablet 2.5 mg PO QPM 09/03/22 09/05/23 History lisinopril 20 mg tablet 20 mg PO QAM 09/03/22 09/05/23 History metoprolol tartrate 50 mg tablet 50 mg PO BID 09/03/22 09/05/23 History sertraline 100 mg tablet 100 mg PO QAM 09/03/22 09/05/23 History rosuvastatin 5 mg tablet 5 mg PO QAM 08/18/23 09/05/23 History magnesium oxide 400 mg PO QPM 08/27/23 09/05/23 History tamsulosin 0.4 mg capsule 0.4 mg PO QAM 09/05/23 09/05/23 History Patient History Medical History Urge incontinence Bladder stimulator in placed- educated to bring remote DOS Disorder of right rotator cuff Dx'ed with rotator cuff tear 07/2023 Arthritis History of diverticulitis Mild diverticulitis on 08/18/23 A/P CT scan during [facility] admission- discharged on PO Augmentin Anxiety and depression Leg cramping hx (reason for magnesium) Kidney stone on left side HLD (hyperlipidemia) HTN (hypertension) Surgical History History of cystoscopy Cystoscopy with left retrograde pyelogram, and Left Stent Placement 08/19/23 [place] H/O foot surgery right/left History of colonoscopy History of tooth extraction History of tonsillectomy and adenoidectomy H/O: hysterectomy Family History Brother Prostate cancer Nephrolithiasis Other No family history of adverse response to anesthesia No pertinent family history Denies family history of Bladder cancer Bleeding disorder Kidney carcinoma Social History Smoking Status: Never smoker Second Hand Exposure: Yes (in the past); Do You Dip or Chew Tobacco: No; Hx Alcohol Use: No Hx Substance Use: No Preferred Language: Icelandic Communication Ability: Effective Hearing Ability: Normal Plasterer Tender Required: No Beliefs That Will Affect Care: None Current Living Situation: Alone Current Living Situation Comment: son rajni lives next door current occupational status: retired Feels Safe at Home: Yes Safety Concerns: Feels Safe At This Time Assistive Devices: None Review of Systems Review of Systems: All systems reviewed & are unremarkable except as noted in HPI & below Physical Exam Constitutional: well developed and well nourished; no acute distress Eyes: no scleral abnormality Respiratory: normal respiratory effort; no respiratory distress and no labored breathing Gastrointestinal (Abdomen): Inspection/Auscultation: abdomen normal to inspection Percussion/Palpation: abdomen soft; abdomen nontender Musculoskeletal: Head/Neck/Chest: normocephalic Neurologic: moves all extremities and awake Psychiatric: Orientation: alert and oriented x 3 Results & Data Vital Signs (Past 12 Hours) Vital Signs Temp Pulse Pulse Resp BP BP Pulse Ox 09/06/23 07:18 37.2 C 84 18 146/77 H 92 09/06/23 03:58 36.9 C 70 16 111/70 94 09/06/23 03:58 09/06/23 03:56 73 09/06/23 02:39 71 28 H 116/58 L 91 09/06/23 02:30 70 28 H 116/58 L 92 09/06/23 02:26 09/06/23 02:26 37.0 C 69 24 112/51 L 93 09/06/23 02:00 70 28 H 112/51 L 92 09/06/23 01:30 73 26 H 110/51 L 93 09/06/23 01:02 75 09/06/23 01:00 73 22 110/52 L 95 09/06/23 00:39 37.4 C 74 22 102/52 L 92 09/06/23 00:30 76 24 102/52 L 92 09/06/23 00:00 80 20 145/70 H 98 09/05/23 23:30 75 23 141/61 H 92 09/05/23 23:00 38.6 C H 77 20 139/62 92 09/05/23 22:51 79 22 139/62 92 Pulse Ox O2 Del Method O2 Del Method O2 Flow Rate 09/06/23 07:18 Room Air 09/06/23 03:58 Room Air 09/06/23 03:58 94 Room Air 09/06/23 03:56 09/06/23 02:39 Nasal Cannula 2 09/06/23 02:30 Nasal Cannula 2 09/06/23 02:26 Nasal Cannula 2 09/06/23 02:26 Nasal Cannula 2 09/06/23 02:00 Nasal Cannula 2 09/06/23 01:30 Nasal Cannula 2 09/06/23 01:02 09/06/23 01:00 Nasal Cannula 2 09/06/23 00:39 Room Air 09/06/23 00:30 Room Air 09/06/23 00:00 Nasal Cannula 2 09/05/23 23:30 Room Air 09/05/23 23:00 Nasal Cannula 2 09/05/23 22:51 Room Air PG Care Time/CCT Total # of Minutes Spent Total Time Spent with Patient: Total time spent is greater than 50% in coordination of care (as documented) at patient's floor/unit and/or counseling patient: Coding Level of Care Code 88055 INT INP/OBS CARE Diagnoses Acute pyelonephritis N10 Acute UTI (urinary tract infection) N39.0
[2023-09-06 11:28] LABS: A calco-baum cmplx NotReported Not Detected (NotDetected); Bact fragilis Not Reported Not Detected (NotDetected); Blood Culture Id Panel See PCR Comment (NotDetected); C auris Not Reported Not Detected (NotDetected); CTX-M Resistant Gene Not Detected (NotDetected); Calbicans Not Reported Not Detected (NotDetected); Candida glabrata Not Reported Not Detected (NotDetected); Candida krusei Not Reported Not Detected (NotDetected); Cneoformans/gatti Not Reported Not Detected (NotDetected); Cparapsilosis Not Reported Not Detected (NotDetected); E cloacae compx Not Reported Not Detected (NotDetected); Efaecalis Not Reported Not Detected (NotDetected); Efaecium Not Reported Not Detected (NotDetected); Enterobacterales Not Reported DETECTED (NotDetected); Escherichia coli Not Reported DETECTED (NotDetected); H influenzae Not Reported Not Detected (NotDetected); IMP Resistant Gene Not Detected (NotDetected); K aerogenes Not Reported Not Detected (NotDetected); KPC Resistant Gene Not Detected (NotDetected); Koxytoca Not Reported Not Detected (NotDetected); Kpneumoniae grp Not Reported Not Detected (NotDetected); Lmonocyt Not Reported Not Detected (NotDetected); N meningitidis Not Reported Not Detected (NotDetected); NDM Resistant Gene Not Detected (NotDetected); OXA 48 Like Resistant Gene Not Detected (NotDetected); P aeruginosa Not Reported Not Detected (NotDetected); Proteus spp Not Reported Not Detected (NotDetected); Salmonella spp Not Reported Not Detected (NotDetected); Smarcescens Not Reported Not Detected (NotDetected); Staph lugdunensis Not Reported Not Detected (NotDetected); Staph spp. Not Reported Not Detected (NotDetected); Staphaureus Not Reported Not Detected (NotDetected); Staphepi Not Reported Not Detected (NotDetected); Stenmaltophilia Not Reported Not Detected (NotDetected); Strep agal(GrpB) Not Reported Not Detected (NotDetected); Strep pneum Not Reported Not Detected (NotDetected); Strep pyog (GrpA) Not Reported Not Detected (NotDetected); Strep spp Not Reported Not Detected (NotDetected); VIM Resistant Gene Not Detected (NotDetected); mcr-1 Colistin Resistant Gene Not Detected (NotDetected)
--- NOTE | 2023-09-06 11:58 | Communication Note ---
Date of Service: September 06, 2023 Patient seen and examined. Reports nausea and vomiting has resolved. Reports feeling hungry. Reported some chills prior to presentation but none at this time. Denies any abdominal pain. Labs today notable for resolution of leukocytosis [possible dilutional as all cell lines dropped], blood culture growing GNR. Urology evaluation noted. No intervention planned at this time. Repeat blood cultures Will continue Zosyn IV. Follow-up speciation and sensitivities. If patient remains bacteremic, will review again with urology about stent. Send C. difficile and stool PCR. Continue p.o. Vanco for now. GI evaluation noted. Clears for now Other plans as detailed in H/P
--- NOTE | 2023-09-06 12:00 | Gastrointestinal Consultation ---
Date of Consultation September 06, 2023 Assessment & Plan (1) Nausea, vomiting, and diarrhea: (2) Ileitis: Plan Suspicion for infectious process vs less likely inflammatory process. -Would first obtain stool studies to assess for infectious process. Further recommendations can be made pending results of a C diff & stool PCR study. Supervising Physician Co-Signing Physician Notes Agree with SKY Willett as above Interviewed and examined patient and agree with above Abd: Soft, NT, ND, +BS Continue current therapy and supportive care Will need outpatient colonoscopy when acute issues resolve. History of Present Illness Reason for Consultation: ileitis Attending Physician: Orly Archuleta MD History of Present Illness Patient is a 78 yo female with PMH of HLD, HTN, diverticulosis, females incontinence, depression, neurostimulator device, & mood disorder who presented to the hospital due to nausea & vomiting along with diarrhea x 2 days along with a fever. She was noted to have a CT scan showing a left sided pyelonephritis but also an infectious vs inflammatory ileitis (no po contrast). She notes a history of colonoscopy within the past 5 years with [facility]. She notes a history of polyps but no significant findings. She was recently hospitalized for diverticulitis. WBC count 14,060 on admission. She is on IV Zosyn. WBC count has improved. She notes persistence of abdominal pain and fever. Allergies Allergy/AdvReac Type Severity Reaction Status Date / Time ciprofloxacin Allergy Intermediate RASH, CAN Verified 08/27/23 15:32 NOT TAKE WITH CALCIUM metronidazole Allergy Intermediate METALLIC Verified 08/27/23 15:32 TASTE niacin Allergy Intermediate Hives Verified 08/27/23 15:32 oxybutynin Allergy Intermediate metal Verified 08/27/23 15:32 taste in mough Sulfa (Sulfonamide Allergy Intermediate BAD TASTE Verified 08/27/23 15:32 Antibiotics) IN MOUTH oxycodone [From Percocet] AdvReac Intermediate HALLUCINATI Verified 08/27/23 15:32 ONS simvastatin [From Zocor] AdvReac Unknown didn't work Verified 08/27/23 15:32 Home Medications Medication Instructions Recorded Confirmed Type amlodipine 2.5 mg tablet 2.5 mg PO QPM 09/03/22 09/05/23 History lisinopril 20 mg tablet 20 mg PO QAM 09/03/22 09/05/23 History metoprolol tartrate 50 mg tablet 50 mg PO BID 09/03/22 09/05/23 History sertraline 100 mg tablet 100 mg PO QAM 09/03/22 09/05/23 History rosuvastatin 5 mg tablet 5 mg PO QAM 08/18/23 09/05/23 History magnesium oxide 400 mg PO QPM 08/27/23 09/05/23 History tamsulosin 0.4 mg capsule 0.4 mg PO QAM 09/05/23 09/05/23 History Patient History Medical History Urge incontinence Bladder stimulator in placed- educated to bring remote DOS Disorder of right rotator cuff Dx'ed with rotator cuff tear 07/2023 Arthritis History of diverticulitis Mild diverticulitis on 08/18/23 A/P CT scan during [facility] admission- discharged on PO Augmentin Anxiety and depression Leg cramping hx (reason for magnesium) Kidney stone on left side HLD (hyperlipidemia) HTN (hypertension) Surgical History History of cystoscopy Cystoscopy with left retrograde pyelogram, and Left Stent Placement 08/19/23 [place] H/O foot surgery right/left History of colonoscopy History of tooth extraction History of tonsillectomy and adenoidectomy H/O: hysterectomy Family History Brother Prostate cancer Nephrolithiasis Other No family history of adverse response to anesthesia No pertinent family history Denies family history of Bladder cancer Bleeding disorder Kidney carcinoma Social History Smoking Status: Never smoker Second Hand Exposure: Yes (in the past); Do You Dip or Chew Tobacco: No; Hx Alcohol Use: No Hx Substance Use: No Preferred Language: Polish Communication Ability: Effective Hearing Ability: Normal Used Equipment Sales Representative Required: No Beliefs That Will Affect Care: None Current Living Situation: Alone Current Living Situation Comment: son rajni lives next door current occupational status: retired Feels Safe at Home: Yes Safety Concerns: Feels Safe At This Time Assistive Devices: None Review of Systems Constitutional: no fever and no chills Gastrointestinal: + abdominal pain, + nausea, + vomiting a nd + diarrhea/loose stools Physical Exam Constitutional: well developed Respiratory: normal respiratory effort Cardiovascular: Rate/Rhythm: regular rate Gastrointestinal (Abdomen): normal bowel sounds, soft, nontender, no hepatosplenomegaly Psychiatric: Orientation: alert and oriented x 3 Results & Data Vital Signs (Past 12 Hours) Vital Signs Temp Pulse Pulse Resp BP BP Pulse Ox 09/06/23 11:33 37.6 C H 71 18 118/65 91 09/06/23 07:18 37.2 C 84 18 146/77 H 92 09/06/23 03:58 36.9 C 70 16 111/70 94 09/06/23 03:58 09/06/23 03:56 73 09/06/23 02:39 71 28 H 116/58 L 91 09/06/23 02:30 70 28 H 116/58 L 92 09/06/23 02:26 09/06/23 02:26 37.0 C 69 24 112/51 L 93 09/06/23 02:00 70 28 H 112/51 L 92 09/06/23 01:30 73 26 H 110/51 L 93 09/06/23 01:02 75 09/06/23 01:00 73 22 110/52 L 95 09/06/23 00:39 37.4 C 74 22 102/52 L 92 09/06/23 00:30 76 24 102/52 L 92 09/06/23 00:00 80 20 145/70 H 98 Pulse Ox O2 Del Method O2 Del Method O2 Flow Rate 09/06/23 11:33 Room Air 09/06/23 07:18 Room Air 09/06/23 03:58 Room Air 09/06/23 03:58 94 Room Air 09/06/23 03:56 09/06/23 02:39 Nasal Cannula 2 09/06/23 02:30 Nasal Cannula 2 09/06/23 02:26 Nasal Cannula 2 09/06/23 02:26 Nasal Cannula 2 09/06/23 02:00 Nasal Cannula 2 09/06/23 01:30 Nasal Cannula 2 09/06/23 01:02 09/06/23 01:00 Nasal Cannula 2 09/06/23 00:39 Room Air 09/06/23 00:30 Room Air 09/06/23 00:00 Nasal Cannula 2 PG Care Time/CCT Total # of Minutes Spent Total Time Spent with Patient: Total time spent is greater than 50% in coordination of care (as documented) at patient's floor/unit and/or counseling patient: Coding Level of Care Code 52038 INT INP/OBS CARE 3/75MIN Diagnoses Nausea, vomiting, and diarrhea R11.2; R19.7 Ileitis K52.9
[2023-09-06 12:16] LABS: Enterobacterales DETECTED (NotDetected)
[2023-09-06 18:09] LABS: Adenovirus F 40/41 PCR Not Detected (NotDetected); Astrovirus PCR Not Detected (NotDetected); Campylobacter PCR Not Detected (NotDetected); Cryptosporidium PCR Not Detected (NotDetected); Cyclospora cayetanensis PCR Not Detected (NotDetected); Entamoeba histolytica PCR Not Detected (NotDetected); Enteroaggregative E.coli(EAEC) Not Detected (NotDetected); Enteropathogenic E.coli (EPEC) Not Detected (NotDetected); Enterotoxigenic E.coli (ETEC) Not Detected (NotDetected); Giardia lamblia PCR Not Detected (NotDetected); Norovirus GI/GII PCR Not Detected (NotDetected); Plesiomonas shigelloides PCR Not Detected (NotDetected); Rotavirus A PCR Not Detected (NotDetected); Salmonella PCR Not Detected (NotDetected); Sapovirus PCR Not Detected (NotDetected); Shiga-like Toxin E.coli (STEC) Not Detected (NotDetected); Shigella/Enteroinvasive E.coli Not Detected (NotDetected); Vibrio cholerae PCR Not Detected (NotDetected); Vibrio species PCR Not Detected (NotDetected); Yersinia enterocolitica PCR Not Detected (NotDetected)
--- OUTSIDE RECORDS SUMMARY | 2023-09-06 20:36 | External Medical Summary | Summary of Care ---
Author Name Unknown Organization [facility] Address [address] [address] [facility] [place] [address] Phone [phone] Care Team Providers Care Acetylene Plant Operator Name Role Phone Leta Guerrier DO Primary Care Provider Reason for Visit * Reason Onset Date Comments Medication Pre-auth 08/28/2023 Encounter Details Date Type Department Care Team (Late st Contact Info) Description 08/28/[address] [facility] [address] [place] [address] Leta Guerrier DO 200 [facility] [place] [address] Medication Pre-auth Allergies Active Allergy Reactions Criticality Noted Date Comments Ciprofloxacin 02/05/2005 Rash, can't take with calcium Metronidazole Hcl 02/05/2005 metallic taste Niacin And Related 01/25/2010 Hives Oxybutynin 02/05/2005 Percocet 02/05/2005 Hallucinations Sulfa Antibiotics 09/09/2000 Bad taste Simvastatin 01/25/2010 documented as of this encounter (statuses as of 08/29/2023) Medications Medication Sig Dispensed Refills Start Date End Date Status benzonatate (TESSALON PERLES) 100 MG CapsuleIndications :Cough Swallow 1 or 2 pills three times a day as needed for cough. Do not cut, crush, or chew. 50 Cap 1 08/04/2018 Active Ibuprofen 800 MG Oral Tablet (Motrin) Take 1 Tablet by mouth every 8 hours as needed for Pain, Severe. Alternate with Acetaminophen 30 Tablet 07/20/2022 Active Acetaminophen 500 MG Oral Tablet (Tylenol)Indicatio ns:Diverticulitis of colon 2 Tablets. 09/03/2022 Active Metoprolol Tartrate 50 MG Oral Tablet (Lopressor)Indicat ions:HTN, goal below 140/90 TAKE ONE TABLET BY MOUTH TWICE A DAY 180 Tablet 3 10/09/2022 Active Rosuvastatin Calcium 5 MG Oral Tablet (Crestor)Indicatio ns:Dyslipidemia, goal LDL below 130 Take 1 Tablet by mouth in the morning. 90 Tablet 3 11/19/2022 Active Lisinopril 20 MG Oral Tablet (Prinivil)Indicati ons:HTN, goal below 140/90 TAKE ONE TABLET BY MOUTH EVERY MORNING 100 Tablet 2 02/05/2023 4 Active Sertraline HCl 100 MG Oral Tablet (Zoloft)Indication s:Major depressive disorder, single episode, in full remission (HCC) TAKE ONE TABLET BY MOUTH EVERY MORNING 90 Tablet 3 04/19/2023 5 Active Magnesium 100 MG Oral Capsule Take 1 Capsule by mouth in the morning. Active Ondansetron HCl 4 MG Oral TabletIndications: Screen for colon cancer Take 1 Tablet by mouth every 8 hours as needed for Nausea. 30 Tablet 05/27/2023 Active Hydrocortisone 2.5 % External CreamIndications:S eborrheic dermatitis Apply topically to affected area 3 times a day. To affected area. 30 g 5 05/27/2023 Active valACYclovir HCl 1 GM Oral Tablet (Valtrex)Indicatio ns:Cold sore Take 2 Tablets by mouth in the morning and 2 Tablets before bedtime. for cold sores. 4 Tablet 11 05/27/2023 Active Acetaminophen 500 MG Oral Tablet (Tylenol) Take 2 Tablets by mouth every 6 hours as needed for Pain, Moderate. 100 Tablet 07/04/2023 Active amLODIPine Besylate 2.5 MG Oral Tablet (Norvasc)Indicatio ns:HTN, goal below 140/90 TAKE ONE TABLET BY MOUTH EVERY DAY IN THE EVENING 90 Tablet 2 08/25/2023 Active Phenazopyridine HCl 200 MG Oral Tablet (Pyridium) Take 1 Tablet by mouth 3 times a day as needed. 08/20/2023 Active Amoxicillin-Pot Clavulanate 875-125 MG Oral Tablet (Augmentin) Take 1 Tablet by mouth in the morning and 1 Tablet before bedtime. 08/20/2023 Active Tamsulosin HCl 0.4 MG Oral Capsule (Flomax)Indication s:Kidney stone on left side Take 1 Capsule by mouth in the morning. 10 Capsule 1 08/27/2023 Active Ketorolac Tromethamine 10 MG Oral Tablet (Toradol)Indicatio ns:Kidney stone on left side Take 1 Tablet by mouth 4 times a day as needed for Pain, Moderate. Do not take for longer than 5 days 20 Tablet 08/27/2023 Active documented as of this encounter (statuses as of 08/29/2023) Active Problems Problem Noted Date Diagnosed Date Mood disorder 08/27/2023 Neurostimulator device in situ 12/03/2022 Fecal incontinence 04/24/2022 Major depressive disorder, s cristal episode, in full remission 09/29/2020 Moderate episode of recurrent major depressive d isorder 03/31/2020 Urge incontinence 03/31/2020 HTN, goal below 140/90 09/03/2017 History of neoplasm 12/10/2016 Dyslipidemia, goal LDL below 130 08/20/2011 DIVERTICULOSIS OF COLON 10/22/2002 documented as of this encounter (statuses as of 08/29/2023) Resolved Problems Problem Noted Date Diagnosed Date [...] as of this encounter (statuses as of 08/29/2023) Immunizations Name Administration Dates Next Due COVID-19 mRNA, LNP-s, No Pre serve, 2-Dose Series ([employer]) 02/22/2021,06/22/2020,06/01/2020 Influenza, Whole Virus 03/02/2002,2000,01/10/1999,01/25 Pneumococcal Conjugate [...] 02/05/2019 TDAP (age 10 and older)(Boostrix) 09/29/2020 TDAP, Age 7 and older, IM (Adacel) 07/09/2008 Varicella Zoster Vaccine (Adult) 02/25/2012 Zoster [...] Miscellaneous Notes * Telephone Encounter - Justina John LPN - 08/29/2023 9:37 AM EDT Patient aware and verbalized understanding, will comply * Telephone Encounter - Bety Hernandez LPN - 08/28/2023 1:59 PM EDT Left message for patient to return call. Please let patient know that our office was notified that her insurance will not pay for the Ketorolac that Katlin ordered yesterday. June recommends she continue using OTC meds as needed. * Telephone Encounter - Katlin Osborn PA-C - 08/28/2023 12:35 PM EDT Will not pursue at this time. Please inform patient. * Telephone Encounter - Lexi Tubbs CPhT - 08/28/2023 10:47 AM EDT [facility] calling to see if the the clinical information was sent yet, advised it is still pending. Thank you, Lexi Tubbs CPhT Slab Lifting Supervisor [facility] ([facility])(formerly telepharmacy) 08/28/2023,10:47 AM * Telephone Encounter - Bhakti Burnett [facility] - 08/28/2023 10:30 AM EDT Ketorolac prior authorization requiring additional information. Pt using for FDA indication for pain. DX: N20.0 Pt has to try and fail on preferred alternatives for kidney stone pain: Diclofenac Naproxen Mobic Ibuprofen Piroxicam Sulindac Oxaprozin Forwarding to provider to review and change to alternative if appropriate. Thank you, Bhakti Burnett PharmD Clinical Pharmacist [facility] Pharmacy Services ([facility]PS) (formerly Telepharmacy) [phone] 08/28/2023, 10:42 AM * Telephone Encounter - Monica Quinn PHARM Tech - 08/28/2023 9:38 AM EDT Bhakti calling from [facility]. Needs clinical information sent over for Ketorolac 10mg tablet. Please faxinformation to [phone] or drop in [facility] chat FREDDY. EOC [phone] Requesting clinical Criteria for NMI specifically Do not see medical record documentation of use for a Food and Drug Administration (FDA) approved indication AND Do not see medical record documentation of a therapeutic failure on, intolerance to, or contraindication to 2 formulary alternatives. NSAIDS: celecoxib, diclofenac potassium, diclofenac sodium, diclofenac er, ec-naproxen, etodolac, etodolac er, fenoprofen, flurbiprofen, ibuprofen, meclofenamate sodium, mefenamic acid, meloxicam, nabumetone, naproxen, naproxen dr, oxaprozin, piroxicam, sulindac, tolmetin sodium Thanks, Monica Quinn Slab Lifting Supervisor III [facility] ([facility]) 08/28/2023,9:39 AM documented in this encounter Plan of Treatment Upcoming Encounters Date Type Department Care Team (Late st Contact Info) Description 08/30/2023 2:30 PM EDT Office Visit Interventional Pain Center, [facility] [address] [address] Jacqueline Baker PA-C [address] [place] [address] 09/02/2023 11:45 AM EDT Office Visit Orthopaedics [facility] [address] [place] [address] Dong Vuong MD [address] [place] [address] 11/26/2023 9:40 AM EDT Office Visit Family Practice [facility] [place] [address] [facility] [place] [address] Leta Guerrier, 200 [facility] [place] [address] Scheduled Procedures Name Priority Associated Diagnoses Date/Ti [...] 07/09/2008 Pneumococcal Vaccine: 65+ Years Completed 09/17/2016, 05/11/2013, 02/19/2011 RETIRED - COLONOSCOPY-EVERY 2 YRS AGES [...] this encounter Medical Devices Implanted Type Area Dog Beautician Device Identifier Shelf Expiration Date Model / Serial / Lot Percutaneous Extension 2201bun - [id number] - [id number] Implanted:Qty: 1 on 07/13/2022 by Gideon Espino MD at OR [facility] Right: Back [employer] 09/11/2024 9009 / [id number] / Kit Tined Lead - [id number] - [id number] Implanted:Qty: 1 on 07/13/2022 by Gideon Espino MD at OR [facility] Right: Back [employer] 03/14/2025 1201 / [id number] / Neurostim Non Rechargeable - [id number] - [id number] Implanted:Qty: 1 on 07/20/2022 by Gideon Espino MD at OR [facility] N/A: Back [employer] 02/27/2023 4101 / [id number] / documented as of this encounter Visit Diagnoses Diagnosis Kidney stone on left side Calculus of kidney documented in this encounter Advance Directives Documents on File Type Date Recorded Patient Fiberglass Roving Winder Expl anation Power of Sporting Goods Sales Associate 10/04/2005 * Full Code (Latest Code Status on File) Date Activated Date Inactivated Comments 07/20/2022 1:30 PM 07/20/2022 6:51 PM This order r eflects the patients wishes and were consensually agreed upon. Question Answer Comments Discussion of Advance Directives occurred with: Patient * Full Code Date Activated Date Inactivated Comments 07/13/2022 11:25 AM 07/13/2022 5:31 PM This order reflects the patients wishes and were consensually agreed upon. Question Answer Comments Discussion of Advance Direct bridget occurred with: Not Discussed due to patient's condition Care Teams Acetylene Plant Operator Relationship Specialty Start Date End Date Leta Guerrier DO [address] [place] [address] PCP - General Family Medicine 08/12/17 documented as of this encounter
--- OUTSIDE RECORDS SUMMARY | 2023-09-06 20:36 | External Medical Summary | Summary of Care ---
Author Name Unknown Organization [facility] Address [address] [facility] [place] [address] Phone [phone] Care Team Providers Care Pigs Feet Finisher Name Role Phone Leta Guerrier DO Primary Care Provider Reason for Visit * Reason Onset Date Comments Medication Pre-auth 08/28/2023 Encounter Details Date Type Department Care Team (Late st Contact Info) Description 08/28/2023 Telephone Family Practice [facility] [address] [place] [address] Leta Guerrier DO 200 [facility] [place] [address] Medication Pre-auth Allergies Active Allergy Reactions Criticality Noted Date Comments Ciprofloxacin 02/05/2005 Rash, can't take with calcium Metronidazole Hcl 02/05/2005 metallic taste Niacin And Related 01/25/2010 Hives Oxybutynin 02/05/2005 Percocet 02/05/2005 Hallucinations Sulfa Antibiotics 09/09/2000 Bad taste Simvastatin 01/25/2010 documented as of this encounter (statuses as of 08/28/2023) Medications Medication Sig Dispensed Refills Start Date [...] as of this encounter (statuses as of 08/28/2023) Active Problems Problem Noted Date Diagnosed Date [...] as of this encounter (statuses as of 08/28/2023) Resolved Problems Problem Noted Date Diagnosed Date [...] as of this encounter (statuses as of 08/28/2023) Immunizations Name Administration Dates Next Due COVID-19 [...] encounter Miscellaneous Notes * Telephone Encounter - Lexi Tubbs CPhT - 08/28/2023 10:47 AM EDT [facility] calling to see if the the clinical information was sent yet, advised it is still pending. Thank you, Lexi Tubbs CPhT Oral Communication Instructor [facility] Clinical Pharm[facility] Services ([facility])(formerly telepharmacy) 08/28/2023,10:47 AM * Telephone Encounter - Bhakti Burnett RP - 08/28/2023 10:30 AM EDT Ketorolac prior authorization requiring additional information. Pt using for FDA indication for pain. DX: N20.0 Pt has to try and fail on preferred alternatives for kidney stone pain: Diclofenac Naproxen Mobic Ibuprofen Piroxicam Sulindac Oxaprozin Forwarding to provider to review and change to alternative if appropriate. Thank you, Bhakti Burnett, PharmYajaira Clinical Pharmacist [facility] ([facility]) (formerly Telepharmacy) [phone] 08/28/2023, 10:42 AM * Telephone Encounter - Monica Quinn PHARM Tech - 08/28/2023 9:38 AM EDT Bhakti calling from [facility]. Needs clinical information sent over for Ketorolac 10mg tablet. Please faxinformation to [phone] or drop in [facility] chat [place]. [facility] [phone] Requesting clinical Criteria for NMI specifically Do [...] sodium, mefenamic acid, meloxicam, nabumetone, naproxen, naproxen , oxaprozin, piroxicam, sulindac, tolmetin sodium Monica Green Oral Communication Instructor III [facility] ([facility]) 08/28/2023,9:39 AM documented in this encounter Plan of Treatment Upcoming Encounters Date Type Department Care Team (Late st Contact Info) Description 08/30/2023 2:30 PM EDT Office Visit Interventional Pain Center, [facility] [address] [place] [address] Jacqueline Baker PA-C [address] [place] [address] 09/02/2023 11:45 AM EDT Office Visit Orthopaedics [facility] [address] [place] [address] Dong Vuong MD [address] [place] [address] 11/26/2023 9:40 AM EDT Office Visit Family Practice [facility] [address] [facility] [place] [address] Leta Guerrier, 200 [facility] [place], [place] [address] Scheduled Procedures Name Priority Associated Diagnoses Date/Ti [...] this encounter Medical Devices Implanted Type Area Cable Tool Driller Device Identifier Shelf Expiration Date Model / Serial / Lot Percutaneous Extension 2201bun - [id number] - [id number] Implanted:Qty: 1 on 07/13/2022 by Gideon Espino MD at OR [facility] Right: Back [employer] 09/11/2024 9009 / [id number] / Kit Tined Lead - [id number] - [id number] Implanted:Qty: 1 on 07/13/2022 by Gideon Espino MD at OR [facility] Right: Back [employer] 03/14/2025 1201 / [id number] / Neurostim Non Rechargeable - [id number] - [id number] Implanted:Qty: 1 on 07/20/2022 by Gideon Espino MD at OR [facility] N/A: Back [employer] 02/27/2023 4101 / [id number] / documented as of this encounter Visit Diagnoses Diagnosis Kidney stone on left side Calculus of kidney documented in this encounter Advance Directives Documents on File Type Date Recorded Patient Mechanical Inspector Expl anation Power of Review Consultant 10/04/2005 * Full Code (Latest Code Status [...] Discussed due to patient's condition Care Teams Pigs Feet Finisher Relationship Specialty Start Date End Date Leta Guerrier DO [address] [place] [address] PCP - General Family Medicine 08/12/17 documented as of this encounter
--- OUTSIDE RECORDS SUMMARY | 2023-09-06 20:36 | External Medical Summary | Summary of Care ---
Author Name Unknown Organization [facility] Address [address] [facility] [address] Phone [phone] Care Team Providers Care Balance Wheel Facer Name Role Phone Collette Guerrier DO Primary Care Provider Reason for Visit * Reason Comments Medication Refill Encounter Details Date Type Department Care Team (Late st Contact Info) Description 08/24/2023 Refill Family Practice [facility] [address] [place] [address] Collette Guerrier DO 200 [facility] [place] [address] HTN, goal below 140/90 Allergies Active Allergy Reactions Criticality Noted Date Comments Ciprofloxacin 02/05/2005 Rash, can't take with calcium Metronidazole Hcl 02/05/2005 metallic taste Niacin And Related 01/25/2010 Hives Oxybutynin 02/05/2005 Percocet 02/05/2005 Hallucinations Sulfa Antibiotics 09/09/2000 Bad taste Simvastatin 01/25/2010 documented as of this encounter (statuses as of 08/25/2023) Medications Medication Sig Dispensed Refills Start Date End Date Status benzonatate (TESSALON PERLES) 100 MG CapsuleIndicatio ns:Cough Swallow 1 or 2 pills three times a day as needed for cough. Do not cut, crush, or chew. 50 Cap 1 08/04/2018 Active Ibuprofen 800 MG Oral Tablet (Motrin) Take 1 Tablet by mouth every 8 hours as needed for Pain, Severe. Alternate with Acetaminophen 30 Tablet 07/20/2022 Active Acetaminophen 500 MG Oral Tablet (Tylenol)Indicat ions:Diverticuli tis of colon 2 Tablets. 09/03/2022 Active Metoprolol Tartrate 50 MG Oral Tablet (Lopressor)Indic ations:HTN, goal below 140/90 TAKE ONE TABLET BY MOUTH TWICE A DAY 180 Tablet 3 10/09/2022 Active Rosuvastatin Calcium 5 MG Oral Tablet (Crestor)Indicat ions:Dyslipidemi a, goal LDL below 130 Take 1 Tablet by mouth in the morning. 90 Tablet 3 11/19/2022 Active Lisinopril 20 MG Oral Tablet (Prinivil)Indica tions:HTN, goal below 140/90 TAKE ONE TABLET BY MOUTH EVERY MORNING 100 Tablet 2 02/05/2023 4 Active Amoxicillin 500 MG Oral Capsule (Amoxil) Take 1 capsule by mouth twice daily starting 2 days prior to surgery 14 Capsule 02/19/2023 Active Additional Information Patient not taking.Reported on 05/30/2023 Sertraline HCl 100 MG Oral Tablet (Zoloft)Indicati ons:Major depressive disorder, single episode, in full remission (HCC) TAKE ONE TABLET BY MOUTH EVERY MORNING 90 Tablet 3 04/19/2023 5 Active Magnesium 100 MG Oral Capsule Take 1 Capsule by mouth in the morning. Active Ondansetron HCl 4 MG Oral TabletIndication s:Screen for colon cancer Take 1 Tablet by mouth every 8 hours as needed for Nausea. 30 Tablet 05/27/2023 Active Hydrocortisone 2.5 % External CreamIndications :Seborrheic dermatitis Apply topically to affected area 3 times a day. To affected area. 30 g 5 05/27/2023 Active valACYclovir HCl 1 GM Oral Tablet (Valtrex)Indicat ions:Cold sore Take 2 Tablets by mouth in [...] for Pain, Moderate. 100 Tablet 07/04/2023 Active diazePAM 5 MG Oral Tablet (Valium) Take 1 Tablet by mouth once as needed for Other (take 45 min before MRI, must have sheet pile driver operator) for up to 1 dose. 1 Tablet 07/23/2023 Active amLODIPine Besylate 2.5 MG Oral Tablet (Norvasc)Indicat ions:HTN, goal below 140/90 TAKE ONE TABLET BY MOUTH EVERY DAY IN THE EVENING 90 Tablet 2 08/25/2023 Active amLODIPine Besylate 2.5 MG Oral Tablet (Norvasc)Indicat ions:HTN, goal below 140/90 TAKE ONE TABLET BY MOUTH EVERY DAY IN THE EVENING 90 Tablet 3 09/13/2022 4 Discontinue d(Refill) documented as of this encounter (statuses as of 08/25/2023) Active Problems Problem Noted Date Diagnosed Date [...] as of this encounter (statuses as of 08/25/2023) Resolved Problems Problem Noted Date Diagnosed Date [...] as of this encounter (statuses as of 08/25/2023) Immunizations Name Administration Dates Next Due COVID-19 [...] encounter Miscellaneous Notes * Telephone Encounter - Brittanie Godoy [facility] - 08/25/2023 8:05 PM EDTSigned Prescriptions: Disp Refills amLODIPine Besylate 2.5 MG Oral Tablet (No*90 Tab*2 Sig: TAKE ONE TABLET BY MOUTH EVERY DAY IN THE EVENINGAuthorizing Provider: COLLETTE GUERRIER User:BRITTANIE GODOY Electronically signed by Brittanie Godoy [facility] at 08/25/2023 8:05 PM EDT documented in this encounter Plan of Treatment Upcoming Encounters Date Type Department Care Team (Late st Contact Info) Description 08/27/2023 1:00 PM EDT Office Visit [address] [place] [address] Katlin Osborn PA-C [address] [place], [place] [address] [place] [address] 08/30/2023 2:30 PM EDT Office Visit Interventional Pain Center, [facility] [address] [address] Jacqueline Baker PA-C [address] [place] [address] 09/02/2023 11:45 AM EDT Office Visit Orthopaedics [facility] [address] [address] Dong Vuong MD [address] [place] [address] 11/26/2023 9:40 AM EDT Office Visit [address] [place] [address] CheyCollette Tali, [address] [place], [place] [address] Scheduled Procedures Name Priority Associated Diagnoses Date/Ti [...] this encounter Medical Devices Implanted Type Area Clothes Shaker Device Identifier Shelf Expiration Date Model / Serial / Lot Percutaneous Extension 2201bun - [id number] - [id number] Implanted:Qty: 1 on 07/13/2022 by Gideon Espino MD at OR [facility] Right: Back [employer] 09/11/2024 9009 / [id number] / Kit Tined Lead - [id number] - [id number] Implanted:Qty: 1 on 07/13/2022 by Gideon Espino MD at OR [facility] Right: Back [employer] 03/14/2025 1201 / [id number] / Neurostim Non Rechargeable - [id number] - [id number] Implanted:Qty: 1 on 07/20/2022 by Gideon Espino MD at OR [facility] N/A: Back [employer] 02/27/2023 4101 / [id number] / documented as of this encounter Visit Diagnoses Diagnosis HTN, goal below 140/90 Unspecified essential hypertension documented in this encounter Advance Directives Documents on File Type Date Recorded Patient Shoe Cobbler Expl anation Power of Rn Night 10/04/2005 * Full Code (Latest Code Status [...] Discussed due to patient's condition Care Teams Balance Wheel Facer Relationship Specialty Start Date End Date Collette Guerrier DO [address] [place] [address] PCP - General Family Medicine 08/12/17 documented as of this encounter
--- OUTSIDE RECORDS SUMMARY | 2023-09-06 20:36 | External Medical Summary | Summary of Care ---
Author Name Unknown Organization [facility] Address [address] [place] [address] Phone [phone] Care Team Providers Care Insurance Auditor Name Role Phone Leta Guerrier DO Primary Care Provider Reason for Referral * Medication Prior Authorization - Pending Review Specialty Diagnoses / Procedures Referred By Susan honeycutt Referred To Contact Diagnoses Kidney stone on left side Katlin Osborn PA-C [address] [place] [address] Referral ID Status Reason Start Date Expiration Date V isits Requested Visits Authorized [id number] Pending Review 999 999 * Evaluate & Treat - Unlimited Visits (Within 30 days (routine)) - Authorized Specialty Diagnoses / Procedures Referred By Susan honeycutt Referred To Contact Urology Diagnoses Kidney stone on left side Katlin Osborn PA-C [address] [facility] [place] [address] Referral ID Status Reason Start Date Expiration Date Visits Requested Visits Authorized [id number] Authorized Specialty Services Required 08/27/2023 999 999 Question Answer Referral Priority Within 30 days (routine) Where should this appointment be scheduled? [facility] What is the patient being referred for? Kidney Stone/Calculi Has Imaging been done? Yes Reason for Visit * Reason Comments Hospital Follow-Up Encounter Details Date Type Department Care Team (Late st Contact Info) Description 08/27/2023 1:00 PM EDT Office Visit Family Practice [facility] [place] [address] [place] [address] Katlin Osborn PA-C [address] [place] [address] Kidney stone on left side*; Diverticulitis of colon; HTN, goal below 140/90; Mood disorder (HCC) Allergies Active Allergy Reactions Criticality Noted Date Comments Ciprofloxacin 02/05/2005 Rash, can't take with calcium Metronidazole Hcl 02/05/2005 metallic taste Niacin And Related 01/25/2010 Hives Oxybutynin 02/05/2005 Percocet 02/05/2005 Hallucinations Sulfa Antibiotics 09/09/2000 Bad taste Simvastatin 01/25/2010 documented as of this encounter (statuses as of 08/27/2023) Medications Medication Sig Dispensed Refills Start Date [...] (Tylenol)Indicati ons:Diverticuliti s of colon 2 Tablets. 09/03/2022 Active Metoprolol [...] Active Sertraline HCl 100 MG Oral Tablet (Zoloft)Indicatio ns:Major depressive disorder, single episode, in full remission (HCC) TAKE ONE TABLET BY MOUTH EVERY MORNING 90 Tablet 3 04/19/2023 5 Active Magnesium 100 MG Oral Capsule Take 1 Capsule by mouth in the morning. Active Ondansetron HCl 4 MG Oral TabletIndications :Screen for colon cancer Take 1 Tablet by mouth every 8 hours as needed for Nausea. 30 Tablet 05/27/2023 Active Hydrocortisone 2.5 % External CreamIndications: [...] Active amLODIPine Besylate 2.5 MG Oral Tablet (Norvasc)Zeeti ons:HTN, goal below 140/90 TAKE ONE TABLET [...] Active Tamsulosin HCl 0.4 MG Oral Capsule (Flomax)Marieo ns:Kidney stone on left side Take 1 Capsule by mouth in the morning. 10 Capsule 1 08/27/2023 Active Ketorolac Tromethamine 10 MG Oral Tablet (Toradol)Indicati ons:Kidney stone on left side Take 1 Tablet by mouth 4 times a day as needed for Pain, Moderate. Do not take for longer than 5 days 20 Tablet 08/27/2023 Active Amoxicillin 500 MG Oral Capsule (Amoxil) Take 1 capsule by mouth twice daily starting 2 days prior to surgery 14 Capsule 02/19/2023 4 Discontinu ed(Medicat ion List Clean Up) Meloxicam 7.5 MG Oral Tablet (Mobic) Take 1 Tablet by mouth in the morning. for pain.. 30 Tablet 5 07/04/2023 4 Discontinu ed(Medicat ion List Clean Up) diazePAM 5 MG Oral Tablet (Valium) Take 1 Tablet by mouth once as needed for Other (take 45 min before MRI, must have parts delivery driver) for up to 1 dose. 1 Tablet 07/23/2023 4 Discontinu ed(Medicat ion List Clean Up) Tamsulosin HCl 0.4 MG Oral Capsule (Flomax) Take 1 Capsule by mouth in the morning. 08/20/2023 4 Discontinu ed(Refill) documented as of this encounter (statuses as of 08/27/2023) Active Problems Problem Noted Date Diagnosed Date [...] as of this encounter (statuses as of 08/27/2023) Resolved Problems Problem Noted Date Diagnosed Date [...] as of this encounter (statuses as of 08/27/2023) Immunizations Name Administration Dates Next Due COVID-19 [...] on file documented as of this encounter Last Filed Vital Signs Vital Sign Reading Time Taken Comments Blood Pressure 130/72 08/27/2023 1:00 PM EDT Pulse 56 08/27/2023 1:00 PM EDT Temperature 36.2 C (97.1 F) 08/27/2023 1:00 PM ED T Respiratory Rate 16 08/27/2023 1:00 PM EDT Oxygen Saturation - - Inhaled Oxygen Concentration - - Weight 68 kg (150 lb) 08/27/2023 1:00 PM EDT Height - - Body Mass Index 26.57 05/30/2023 6:06 PM EST documented in this encounter Progress Notes * Katlin Osborn PA-C - 08/27/2023 1:16 PM EDT Images from the original note were not included. History of Present Illness Gloria Obregon is a 78 year old female that presents for Hospital Follow-Up Patient is a 78 year old female who presents with her daughter for a follow up on a recent hospitalization for abdominal pain. She was inpatient from 08/17- 08/19. She was diagnosed with diverticulitis and left kidney stone. She was placed on augmentin for 7 days. Is feeling better. Denies fever, chills, hematuria, nausea, vomiting, diarrhea. Some dysuria, abdominal pain on left. Stools loose. Sleep normal Appetite fair Physical Exam Vitals: 08/27/23 1300 Temp: 36.2 C (97.1 F) Pulse: 56 Resp: 16 BP: 130/72 BP Readings from Last 3 Encounters: 08/27/23 130/72 05/30/23 138/50 05/27/23 130/54 Wt Readings from Last 3 Encounters: 08/27/23 68 kg (150 lb) 05/30/23 69.9 kg (154 lb) 05/27/23 69.9 kg (154 lb) General: alert, healthy, no distress, well nourished, well developed, and cooperative Head: Normocephalic, No masses, lesions, tenderness or abnormalities Eye Exam: PERRLA, extraocular movements intact, conjunctiva are pink and non- injected, sclera clear Neck: supple, no adenopathy, no bruits, thyroid normal size, non-tender, without nodularity Heart: regular rate & rhythm, no murmur, and no gallops Lungs: chest symmetric with normal AP diameter, no chest deformities noted, normal respiratory rateand rhythm, no chest wall tenderness, diaphragmatic excursion normal, lungs clear to auscultation Abdomen: abdomen soft, normal bowel sounds, no masses or organomegaly, no rebound or guarding, no CVA tenderness, no bladder distention identified, and left CVA tenderness. Back: back symmetric, no curvature, range of motion is normal, no skin lesions, erythema or scars, no tenderness to percussion or palpation, Normal heel walk and toe walk, without evidence of muscle weakness Neuro Exam: alert & oriented x 3 with fluent speech, no focal motor/sensory deficits, gait normal I have reviewed the following results: None Assessment and Plan Kidney stone on left side (Primary) - Tamsulosin HCl 0.4 MG Oral Capsule (Flomax); Take 1 Capsule by mouth in the morning. - ADULT/PEDS UROLOGY REFERRAL OP - Ketorolac Tromethamine 10 MG Oral Tablet (Toradol); Take 1 Tablet by mouth 4 times a day as needed for Pain, Moderate. Do not take for longer than 5 days Diverticulitis of colon HTN, goal below 140/90 Mood disorder (HCC) Wrap-Up Time: I spent a total of 40-54 minutes (exact time 45 mins) on the date of service in preparation, delivery, and documentation of the care provided to Gloria Obregon excluding any time spent in the performance of separately billed services. documented in this encounter Nursing Notes * Brianda Christianson LPN - 08/27/2023 12:54 PM EDT Gloria Phu Mindi presents for hospital follow up. Medications & HM reviewed. documented in this encounter Plan of Treatment Upcoming Encounters Date Type Department Care Team (Late st Contact Info) Description 08/30/2023 2:30 PM EDT Office Visit [facility], [address] [place] [address] Jacqueline Baker PA-C [address] [place] [address] 09/02/2023 11:45 AM EDT Office Visit Orthopaedics [facility] [address] [place] [address] Dong Vuong MD [address] [place] [address] 11/26/2023 9:40 AM EDT Office Visit Family Practice [facility] [address] [facility] [place] [address] Leta Guerrier DO [address] [facility] [place] [address] Scheduled Procedures Name Priority Associated Diagnoses Date/Ti me COLONOSCOPY FLEXIBLE PROXIMAL DIAGNOSTIC Recall History of colon polyps Scheduled Referrals Name Type Priority Associated Diagnoses Orde r Schedule ADULT/PEDS UROLOGY REFERRAL OP Referral Within 30 days (routine) Kidney stone on left side Ordered: 08/27/2023 Health Maintenance Due Date Last Done Comments [...] this encounter Medical Devices Implanted Type Area Adult Daycare Coordinator Device Identifier Shelf Expiration Date Model / Serial / Lot Percutaneous Extension 2201bun - [id number] - [id number] Implanted:Qty: 1 on 07/13/2022 by Gideon Espino MD at OR [facility] Right: Back [employer] 09/11/2024 9009 / [id number] / Kit Tined Lead - [id number] - [id number] Implanted:Qty: 1 on 07/13/2022 by Gideon Espino MD at OR [facility] Right: Back [employer] 03/14/2025 1201 / [id number] / Neurostim Non Rechargeable - [id number] - [id number] Implanted:Qty: 1 on 07/20/2022 by Gideon Espino MD at OR [facility] N/A: Back [employer] 02/27/2023 4101 / [id number] / documented as of this encounter Visit Diagnoses Diagnosis Kidney stone on left side- Primary Calculus of kidney Diverticulitis of colon Diverticulitis of colon (without mention of hemorrhage) HTN, goal below 140/90 Unspecified essential hypertension Mood disorder (HCC) Unspecified episodic mood disorder documented in this encounter Advance Directives Documents on File Type Date Recorded Patient Copy Technician Expl anation Power of Major Donor Coordinator 10/04/2005 * Full Code (Latest Code Status [...] Discussed due to patient's condition Care Teams Insurance Auditor Relationship Specialty Start Date End Date Leta Guerrier DO [facility] [place] [address] [address] PCP - General Family Medicine 08/12/17 documented as of this encounter
--- OUTSIDE RECORDS SUMMARY | 2023-09-06 20:36 | External Medical Summary | Summary of Care ---
Author Name Unknown Organization [facility] Address [address] [place] [address] Phone [phone] Care Team Providers Care Fiction And Nonfiction Writer Prose Name Role Phone Leta Guerrier DO Primary Care Provider Reason for Visit * Reason Onset Date Comments Medication Pre-auth 08/28/2023 Encounter Details Date Type Department Care Team (Late st Contact Info) Description 08/28/2023 Telephone Family Practice [facility] [address] [place] [address] Leta Guerrier DO [address] [facility] [place] [address] Medication Pre-auth Allergies Active Allergy Reactions Criticality [...] mRNA, LNP-s, No Pre serve, 2-Dose Series ([employer]) 02/22/2021,06/22/2020,06/01/2020 Influenza, Whole Virus 03/02/2002,2000,01/10/1999,01/25 Pneumococcal Conjugate [...] encounter Miscellaneous Notes * Telephone Encounter - Bety Hernandez LPN [...] Tubbs CPhT - 08/28/2023 10:47 AM EDT P calling to see if the the clinical information was sent yet, advised it is still pending. Thank you, Lexi Tubbs CPhT Supervisor Title [facility] ([facility])(formerly telepharmacy) 08/28/2023,10:47 AM * Telephone Encounter - Bhakti Burnett RPh - 08/28/2023 10:30 AM EDT Ketorolac prior authorization requiring additional information. Pt using for FDA indication for pain. DX: N20.0 Pt has to try and fail on preferred alternatives for kidney stone pain: Diclofenac Naproxen Mobic Ibuprofen Piroxicam Sulindac Oxaprozin Forwarding to provider to review and change to alternative if appropriate. Thank you, Bhakti Burnett, PharmD Clinical Pharmacist [facility] ([facility]) (formerly Telepharmacy) [phone] 08/28/2023, 10:42 AM * Telephone Encounter - Monica Quinn motion picture critic - 08/28/2023 9:38 AM EDT Bhakti calling from [facility]. Needs clinical information sent over for Ketorolac 10mg tablet. Please faxinformation to [phone] or drop in [facility] chat FREDDY. EOC [id number] Requesting clinical Criteria for NMI specifically Do [...] naproxen dr, oxaprozin, piroxicam, sulindac, tolmetin sodium ThanksMonica Supervisor Title III [facility] ([facility]) 08/28/2023,9:39 AM documented in this encounter Plan of Treatment Upcoming Encounters Date Type Department Care Team (Late st Contact Info) Description 08/30/2023 2:30 PM EDT Office Visit Interventional Pain Center, [facility] [address] [place] [address] Jacqueline Baker PA-C [address] [place] [address] 09/02/2023 11:45 AM EDT Office Visit Orthopaedics [facility] [address] [place] [address] Dong Vuong MD [address] [place] [address] 11/26/2023 9:40 AM EDT Office [facility] [place] [address] [facility] [place] [address] Leta Guerrier, [address] [facility] [place] [address] Scheduled Procedures Name Priority Associated Diagnoses Date/Ti [...] this encounter Medical Devices Implanted Type Area Commercial Credit Portfolio Manager Device Identifier Shelf Expiration Date Model / Serial / Lot Percutaneous Extension 2201bun - [id number] - [id number] Implanted:Qty: 1 on 07/13/2022 by Gideon Espino MD at OR [facility] Right: Back [employer] 09/11/2024 9009 / [id number] / Kit Tined Lead - [id number] - [id number] Implanted:Qty: 1 on 07/13/2022 by Gideon Espino MD at OR [facility] Right: Back [employer] 03/14/2025 1201 / [id number] / Neurostim Non Rechargeable - [id number] - [id number] Implanted:Qty: 1 on 07/20/2022 by Gideon Espino MD at OR [facility] N/A: Back [employer] 02/27/2023 4101 / [id number] / documented as of this encounter Visit Diagnoses Diagnosis Kidney stone on left side Calculus of kidney documented in this encounter Advance Directives Documents on File Type Date Recorded Patient Dicer Operator Expl anation Power of Stacker Attendant 10/04/2005 * Full Code (Latest Code Status [...] Discussed due to patient's condition Care Teams Fiction And Nonfiction Writer Prose Relationship Specialty Start Date End Date Leta Guerrier DO [address] [place] [address] PCP - General Family Medicine 08/12/17 documented as of this encounter
--- OUTSIDE RECORDS SUMMARY | 2023-09-06 20:36 | External Medical Summary | Summary of Care ---
Author Name Unknown Organization [facility] Address [address] [place] [address] Phone [phone] Care Team Providers Care Transport Manager Name Role Phone Leta Guerrier DO Primary Care Provider Reason for Visit * Reason Comments Follow Up R shoulder Encounter Details Date Type Department Care Team (Late st Contact Info) Description 09/02/2023 11:45 AM EDT Office Visit Orthopaedics [facility] [address] [place] [address] Dong Vuong MD [address] [place] [address] Acute pain of right shoulder*; Radicular pain in right arm; Neck pain Allergies Active Allergy Reactions Criticality Noted Date Comments Ciprofloxacin 02/05/2005 Rash, can't take with calcium Metronidazole Hcl 02/05/2005 metallic taste Niacin And Related 01/25/2010 Hives Oxybutynin 02/05/2005 Percocet 02/05/2005 Hallucinations Sulfa Antibiotics 09/09/2000 Bad taste Simvastatin 01/25/2010 documented as of this encounter (statuses as of 09/02/2023) Medications Medication Sig Dispensed Refills Start Date [...] as of this encounter (statuses as of 09/02/2023) Active Problems Problem Noted Date Diagnosed Date [...] as of this encounter (statuses as of 09/02/2023) Resolved Problems Problem Noted Date Diagnosed Date [...] as of this encounter (statuses as of 09/02/2023) Immunizations Name Administration Dates Next Due COVID-19 [...] on file documented as of this encounter Progress Notes * Dong Vuong MD - 09/02/2023 11:48 AM EDT Gloria Obregon [id number] Gloria Obregon is a 78 year old female who presents for f/u to [facility] forright shoulder injury/pain. I saw her originally for this on 07/12/2023 Gloria Obregon is here with her daughter History: Level of pain: reviewed and agree with Nursing Notes for HPI elements History on 07/12/2023 - I have read the note from when she was evaluated for this in the [facility]opedic walk[facility]in [facility] by Linda Avina PA-C (orthopedics) on 05/31/2023. 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 Physical therapy was recommended. Here for chronic right shoulder pain, has completed PT yesterday without much relief Since that visit: I saw her was obtained. However following that she also developed pain was admitted to the local hospital diagnosed with a kidney stone. She received a subacromial bursa steroid injection from an orthopedic provider while admitted. Since the injection she is noted decreased pain and also decreased radicular symptoms. She was also seen by pain management per my referral per my referral on 08/30/2023 for radicular arm pain. ROS: ROS per HPI otherwise non-contributory Past Medical History: Diagnosis Date BENIGN HYPERTENSION 06/02/2001 BENIGN NEOPLASM LG BOWEL 06/02/2001 Benign neoplasm of colon 10/27/12 COLONOSCOPY FLEXIBLE PROXIMAL DIAGNOSTIC performed by Hodan Chu DO at [facility],hyperplastic and adenomatous polyps repeat colonoscopy in 5 years Diverticulosis of colon 10/22/2002 PURE HYPERCHOLESTEROLEM 04/19/2003 Family History Problem Relation Name Age of Onset Cancer None Heart Disorder [...] Never Smokeless tobacco: Never Vaping Use Vaping status: Never Used Substance and Sexual Activity Alcohol use: No [...] on file Housing Stability: Not on file Radiology: 08/14/2023: MRI R shoulder IMPRESSION 1. Essentially complete full-thickness tears of the supraspinatus and infraspinatus tendons. 2. Mypr-wa-vxbvuqom fatty atrophy of the supraspinatus, infraspinatus, and teres minor muscles. 3. Posterosuperior labral tear. 4. Moderate acromioclavicular osteoarthritis 08/14/2023: MRI C spine FINDINGS The visualized posterior fossa structures show no acute abnormality. There is mild disc flattening from C3-4 through C5-6, there is fusion of the C6- 7 interspace. Thereis mild kyphosis at the level of fusion. The cervical vertebral body alignment, heights, and signal intensities are otherwise within normal limits. No gross periarticular edema of the facet joints appreciated. The spinal ligaments insofar as visualized appear intact. The cervical cord is of normal caliber and signal intensity. No paraspinal mass or adenopathy is identified. The visualized carotid and vertebral flow voids are maintained. Axial images show the following: C1-2: The craniocervical junction is in normal alignment. The cruciate ligament is intact. C2-3: No significant disk bulge, and no spinal or foraminal stenosis identified. C3-4: There is a mild broad posterior disc-osteophyte bulge resulting in mild spinal stenosis with moderate right and mild left neural foraminal narrowing. C4-5: There is mild spinal stenosis with mild right and moderate left neural foraminal narrowing secondary to mild broad posterior disc-osteophyte bulge extending through the neural foramina. C5-6: There is mild to moderate spinal stenosis and mild bilateral neural foraminal narrowing secondary to a broad posterior disc-osteophyte bulge extending through the neural foramen. The disc bulgeabuts and slightly flattens the ventral aspect of the cervical cord. The CSF space around the cord is maintained however. C6-7: There is solid ankylosis of the interspace. There is qxjr-bc-zkngdlii spinal stenosis secondary to protrusion of the adjacent endplates into the spinal canal abutting and slightly indenting theventral aspect of the cervical cord. There is mild bilateral neural foraminal narrowing. C7-T1: No significant disc bulge, and no spinal or foraminal stenosis identified. IMPRESSION IMPRESSION 1. Advanced degenerative disc and bony changes as described above, most pronounced at the C5-6 and C6-7 levels 07/12/2023: Four view x-ray of the cervical spine FINDINGS The cervical spine is adequately visualized. No evidence for acute fracture. Ankylosis at C6-7. Mild reversal of the cervical lordosis. No dynamic instability on flexion or extension views. Multilevel cervical degenerative disc disease notable for disc height loss, endplate osteophyte formation and facet/uncovertebral arthropathy, greatest and moderate at C5-6. No prevertebral soft tissue thickening is noted. IMPRESSION IMPRESSION Multilevel cervical degenerative change, greatest at C5-6. No acute findings or dynamic instability 05/31/2023: 4 view xr of R shoulder FINDINGS Joint spaces are maintained. Mild degenerative change at the acromioclavicular joint. The acromiohumeral distance is normal. There is no fracture or dislocation. Visualized lung garvin are clear. IMPRESSION IMPRESSION Mild degenerative change acromioclavicular joint Physical Exam Constitutional: Generally well-nourished and in no acute distress Psychiatric: Mood and Affect normal Eyes: EOMI Respiratory: Normal respiratory effort with regular rate and rhythm Cardiovascular: No edema in the affected extremity (s) Shoulder Exam Inspection: Palpation: ROM: Forward Flexion (normal 180): L - 180, R - 160 Abduction (normal 180): L - 180, R - 160 External rotation at 0: L - 70, R - 70 Internal Rotation: T12 L, l5 R Assessment and Plan: Right shoulder pain Suspect complete tear of the supraspinatus tendon 08/14/2023: MRI R shoulder IMPRESSION 1. Essentially complete full-thickness tears of the supraspinatus and infraspinatus tendons. 2. Riiw-zv-rqwemehj fatty atrophy of the supraspinatus, infraspinatus, and teres minor muscles. 3. Posterosuperior labral tear. 4. Moderate acromioclavicular osteoarthritis Discussed findings with the patient. Given the fatty atrophy of the supraspinatus, infraspinatus and teres minor do not think patient would be offered a rotator cuff surgery. In addition she also had an subacromial bursa steroid injection while admitted to the [facility] for obstructive nephropathy and diverticulitis.. She was admitted on 08/14/2023 (not certain what actual dateof injection was) Plan is for her to follow up as needed. She is aware these injections can reported every 3-4 months As noted above she already did a significant course of therapy and did not have improvement For issues patient attended over 5 weeks of therapy 2 times per week and did not have improvement 2. Neck and radicular arm pain Suspect cervical radiculopathy Significant changes noted on radiographs MRI of the cervical spine showed significant findings as noted above Seen in pain management on 08/30/2023 Given she had improvement following subacromial bursa steroid injection plan is to monitor for now and she was given educational information on findings that would prompt her to return to pain management Dong Vuong MD Primary Care Sports Medicine Orthopaedics [address] [address] documented in this encounter Nursing Notes * Bonnie Selby LPN - 09/02/2023 11:44 AM EDT -f/u R shoulder -Xrays of R shoulder on file -MRI 08/14/23 -Pt DENIES pain today -Pt is accompanied by her daughter today Vera BallesterosKaylie ESQUIVEL documented in this encounter Plan of Treatment Upcoming Encounters Date Type Department Care Team (Late st Contact Info) Description 11/26/2023 9:40 AM EDT Office Visit Family [facility] [address] [place] [address] [place] [address] Leta Guerrier DO [address] [place] [address] Scheduled Procedures Name Priority Associated Diagnoses Date/Ti [...] this encounter Medical Devices Implanted Type Area Rehab Physician Device Identifier Shelf Expiration Date Model / Serial / Lot Percutaneous Extension 2201bun - [id number] - [id number] Implanted:Qty: 1 on 07/13/2022 by Gideon Espino MD at [facility] Right: Back [employer] 09/11/2024 9009 / [id number] / Kit Tined Lead - [id number] - [id number] Implanted:Qty: 1 on 07/13/2022 by Gideon Espino MD at OR [facility] Right: Back [employer] 03/14/2025 1201 / [id number] / Neurostim Non Rechargeable - [id number] - [id number] Implanted:Qty: 1 on 07/20/2022 by Gideon Espino MD at OR [facility] N/A: Back [employer] 02/27/2023 4101 / [id number] / documented as of this encounter Visit Diagnoses Diagnosis Acute pain of right shoulder- Primary Radicular pain in right arm Neuralgia, neuritis, and radiculitis, unspecified Neck pain Cervicalgia documented in this encounter Advance Directives Documents on File Type Date Recorded 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
--- OUTSIDE RECORDS SUMMARY | 2023-09-06 20:36 | External Medical Summary | Summary of Care ---
Author Name Unknown Organization [facility] Address [address] [facility] [address] Phone [phone] Care Team Providers Care Dermatology Nurse Name Role Phone Leta Guerrier DO Primary Care Provider Reason for Visit * Reason Onset Date Comments Advice 08/29/2023 Encounter Details Date Type Department Care Team (Late st Contact Info) Description 08/29/2023 Telephone Family Practice [facility] [address] [place] [address] Katlin Osborn PA-C [address] [place] [address] Advice Allergies Active Allergy Reactions Criticality Noted Date [...] Telephone Encounter - Bety Hernandez LPN - 08/29/2023 6:08 PM EDT Patient aware of below. Says she'll be sure to make it to her appointment with pain management tomorrow. * Telephone Encounter - Katlin Osborn PA-C - 08/29/2023 9:55 AM EDT Please let patient know that Dr. Vuong is recommending she continue with the consult with pain management. Thank you * Telephone Encounter - Katlin Osborn PA-C - 08/29/2023 9:55 AM EDT ----- Message from Dong Vuong MD sent at 08/29/2023 8:39 AM EDT ----- When she presented to me her c-spine symptoms were as prominent or more so than shoulder symptoms. Waits for pain management can be long. I recommend she see them to at least be in the door. Pain tends to come and go and I wont be able to do anything for her when it comes back ----- Message ----- From: Katlin Osborn PA-C Sent: 08/27/2023 1:33 PM EDT To: Dong Vuong MD Hi Dr Vuong, With all that is going on in [facility], and now with a left kidney stone, do you still want herto see Pain Management?? Currently she has very minimal pain. Able to wash hair. Appreciate your input. Thanks Katlin documented in this encounter Plan of Treatment Upcoming Encounters Date Type Department Care Team (Late st Contact Info) Description 08/30/2023 2:30 PM EDT Office Visit [facility], [address] [place] [address] Jacqueline Baker PA-C [address] [place] [address] 09/02/2023 11:45 AM EDT Office Visit Orthopaedics [facility] [address] [place] [address] Dong Vuong MD [address] [place] [address] 11/26/2023 9:40 AM EDT Office Visit Family Practice [facility] [address] [facility] [place] [address] Leta Guerrier, [address] [facility] [place] [address] Scheduled Procedures Name Priority Associated Diagnoses Date/Ti [...] this encounter Medical Devices Implanted Type Area Waxing Machine Operator Helper Device Identifier Shelf Expiration Date Model / Serial / Lot Percutaneous Extension 2201bun - [id number] - [id number] Implanted:Qty: 1 on 07/13/2022 by Gideon Espino MD at OR [facility] Right: Back [employer] 09/11/2024 9009 / [id number] / Kit Tined Lead - [id number] - [id number] Implanted:Qty: 1 on 07/13/2022 by Gideon Espino MD at OR [facility] Right: Back [employer] 03/14/2025 1201 / [id number] / Neurostim Non Rechargeable - [id number] - [id number] Implanted:Qty: 1 on 07/20/2022 by Gideon Espino MD at OR [facility] N/A: Back [employer] 02/27/2023 4101 / [id number] / documented as of this encounter Advance Directives Documents on File Type Date Recorded Patient 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
--- OUTSIDE RECORDS SUMMARY | 2023-09-06 20:36 | External Medical Summary | Summary of Care ---
Author Name Unknown Organization [facility] Address [address] [facility] [place] [address] Phone [phone] Care Team Providers Care Dormitory Supervisor Name Role Phone Leta Guerrier DO Primary Care Provider Reason for Visit * Reason Onset Date Comments Referral 08/29/2023 Encounter Details Date Type Department Care Team (Late st Contact Info) Description 08/29/2023 Telephone Urology [facility] Gil [address] [place] [address] Triny Ledezma PA-C [address] [place] [phone] Referral Allergies Active Allergy Reactions Criticality Noted Date [...] encounter Miscellaneous Notes * Telephone Encounter - Nya Ross MED ASSIST - 08/29/2023 10:27 AM EDT Spoke to pt about referral for Urology. Pt is already scheduled for surgery at [facility]. documented in this encounter Plan of Treatment Upcoming Encounters Date Type Department Care Team (Late st Contact Info) Description 08/30/2023 2:30 PM EDT Office Visit Interventional [facility] Center, [facility] [address] [place] [address] Jacqueline Baker PA-C [address] [place] [address] 09/02/2023 11:45 AM EDT Office Visit Orthopaedics [facility] [address] [place] [address] Dong Vuong MD [address] [place] [address] 11/26/2023 9:40 AM EDT Office Visit Family Practice [facility] [address] [facility] [place] [address] Leta Guerrier DO [address] [facility] [place] [address] Scheduled Procedures Name Priority Associated Diagnoses Date/Ti [...] this encounter Medical Devices Implanted Type Area Pathology Laboratory Director Device Identifier Shelf Expiration Date Model / Serial / Lot Percutaneous Extension 2201bun - [id number] - [id number] Implanted:Qty: 1 on 07/13/2022 by Gideon Espino MD at OR [facility] Right: Back [employer] 09/11/2024 9009 / [id number] / Kit Tined Lead - [id number] - [id number] Implanted:Qty: 1 on 07/13/2022 by Gideon Espino MD at OR [facility] Right: Back [employer] 03/14/2025 1201 / [id number] / Neurostim Non Rechargeable - [id number] - [id number] Implanted:Qty: 1 on 07/20/2022 by Gideon Espino MD at OR [facility] N/A: Back [employer] 02/27/2023 4101 / [id number] / documented as of this encounter Advance Directives Documents on File Type Date Recorded 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
--- OUTSIDE RECORDS SUMMARY | 2023-09-06 20:36 | External Medical Summary | Summary of Care ---
Author Name Unknown Organization [facility] Address [address] [place] [address] Phone [phone] Care Team Providers Care Certified Alcohol And Drug Counselor Name Role Phone Leta Guerrier DO Primary Care Provider Reason for Visit * Reason Comments Neck Pain * Evaluate & Treat - Unlimited Visits (Within 10 days (routine)) - Authorized Specialty Diagnoses / Procedures Referred By Contdayron t Referred To Contact Pain Management / Pain Medicine Diagnoses Neck pain Radicular pain in right arm Dong Vuong MD [address] [place] [address] Referral ID Status Reason Start Date Expiration Date Visits Requested Visits Authorized [id number] Authorized Specialty Services Required 07/12/[phone] Encounter Details Date Type Department Care Team (Late st Contact Info) Description 08/30/2023 2:30 PM EDT Office Visit Interventional Pain Center, [facility] [address] [place] [address] Jacqueline Baker PA-C [address] [place] [address] Cervical radicular pain* Allergies Active Allergy Reactions Criticality Noted Date Comments Ciprofloxacin 02/05/2005 Rash, can't take with calcium Metronidazole Hcl 02/05/2005 metallic taste Niacin And Related 01/25/2010 Hives Oxybutynin 02/05/2005 Percocet 02/05/2005 Hallucinations Sulfa Antibiotics 09/09/2000 Bad taste Simvastatin 01/25/2010 documented as of this encounter (statuses as of 08/30/2023) Medications Medication Sig Dispensed Refills Start Date [...] as of this encounter (statuses as of 08/30/2023) Active Problems Problem Noted Date Diagnosed Date [...] as of this encounter (statuses as of 08/30/2023) Resolved Problems Problem Noted Date Diagnosed Date [...] as of this encounter (statuses as of 08/30/2023) Immunizations Name Administration Dates Next Due COVID-19 mRNA, LNP-s, No Pre serve, 2-Dose Series ([employer]) 02/22/2021,06/22/2020,06/01/2020 Pneumococcal Conjugate Vacc, 13 Valent (Prevnar) [...] as of this encounter Progress Notes * Jacqueline Baker PA-C - 08/30/2023 2:39 PM EDT GENERAL HISTORY & PHYSICAL EXAMINATION - Anesthesia and Pain Service Name: Gloria Obregon Location: [facility] REFERRING PHYSICIAN: Dong Vuong MD Thank you for referring Gloria Obregon. CHIEF COMPLAINT: Neck, R UE pain HPI: Gloria Obregon is a 78 year old female who complains of neck pain that radiates to R UE extending to hand. This pain started May 2023 without preceding injury. Followed with PCP for this complaint. Also presented to [facility] 04/15/23 for L abdominal pain and R shoulder, admitted for observation. While admitted, provided R shoulder injection?(Unable to view all notes) which has significantly reducedpain. Diagnosed with diverticulitis and obstructive nephropathy. Recently evaluated by ortho, also questions shoulder pathology - ordered C spine and R shoulder MRI. Has follow up with ortho next week. Again, doing rather well since being admitted thru [facility]. Denies significant neck or UE pain at this time. Described pain as "jabbing." Pain is intermittent. Admits associated weakness R UE - significantly improved since ED shot. Denies LEFT UE radicular pain. Denies paresthesia B UE. Chronic urinary urge incontinence, has bladder stimulator. Denies bowel incontinence. Denies hx spine surgery orinjections. Pain is no longer affecting ADL. Reviewed C spine MRI 08/14/23 - no acute compression fractures, osseous fusion C6/7, no cord signal changes, ventral cord flattening C5/6 and C6/7 with mild to moderate central stenosis and at least mild foraminal narrowing. Significant past medical hx includes: HTN, depression. Current medications used for pain: toradol, tylenol. Past medications used for pain: diclofenac, ibuprofen. Anticoagulation therapy: no Diabetic: no Presents with daughter, Sharon. PAST MEDICAL HISTORY: Past Medical History: Diagnosis Date BENIGN HYPERTENSION 06/02/2001 BENIGN NEOPLASM LG BOWEL 06/02/2001 Benign neoplasm of colon 10/27/12 COLONOSCOPY FLEXIBLE PROXIMAL DIAGNOSTIC performed by Hodan Chu DO at ENDOSCOPY [facility],hyperplastic and adenomatous polyps repeat colonoscopy in 5 years Diverticulosis of colon 10/22/2002 PURE HYPERCHOLESTEROLEM 04/19/2003 Past Medical History - Pertinent Findings: (-) clotting disorder PAST SURGICAL HISTORY: Past Surgical History: Procedure Laterality Date COLONOSCOPY 10/05/2002 DR. ESCALANTE - POLYP COLONOSCOPY 04/22/2006 Inflammatory polyp COLONOSCOPY, DIAGNOSTIC (RECTUM) 10/27/2012 COLONOSCOPY FLEXIBLE PROXIMAL DIAGNOSTIC performed by Hodan Chu DO at ENDOSCOPY [facility],hyperplastic and adenomatous polyps repeat colonoscopy in 5 years COLONOSCOPY, DIAGNOSTIC (RECTUM) 02/24/2018 adenomatous polyps, diverticulosis, fair prep, repeat 2-3 yrs/COLONOSCOPY FLEXIBLE PROXIMAL DIAGNOSTIC performed by Shannan Mcqueen MD at ENDOSCOPY [facility] CORRECTION OF BLADDER DEFECT 2005 Midurethral sling (TVT) with Dr. Ivey INCISION FOR NEUROELECTRODES, SACRAL N/A 07/13/2022 IMPLANTATION NEUROSTIMULATOR SACRAL NERVE performed by Gideon Espino MD at OR [facility] INFORMATION Bladder Surgery INFORMATION Hemorrhoid Surgery INSERT OR REPLACE OF PERIPHERAL OR GASTRIC NEUROSTIM PULSE GENERATOR OR PEANUT SHAKER 07/20/2022 PERIPH NEUROSTIM INSERT/REPLACE performed by Gideon Espino MD at OR [facility] REMOVAL OF OVARY(S) REMOVE TONSILS & ADENOIDS, AGE 12+ TOTAL HYSTERECTOMY 1979 BSO, DUB FAMILY HISTORY: Family History Problem Relation Name Age of Onset Cancer None Heart Disorder Brother Diabetes Brother Heart Disorder Brother Hypertension Sister Hypertension Mother Emphysema Mother Thyroid Disorder Sister Alcohol and Other Disorders Associated Father Stroke Grandmother (Maternal) Breast Cancer Daughter 51 Colon cancer Daughter breast, bone, lung, colon- Family History - Pertinent Findings: (-) clotting disorder SOCIAL HISTORY: Social History Tobacco Use Smoking status: Never Smokeless tobacco: Never Vaping Use Vaping status: Never Used Substance Use Topics Alcohol use: No Drug use: No CURRENT MEDICATIONS: Note that discontinued and completed medications (per the MAR) continue to display for 24 hours. Ordered medications to be given in the future also display. Current Outpatient Medications Medication Sig Dispense Refill benzonatate (TESSALON PERLES) 100 MG Capsule Swallow 1 or 2 pills three times a day as needed for cough. Do not cut, crush, or chew. 50 Cap 1 Ibuprofen 800 MG Oral Tablet (Motrin) Take 1 Tablet by mouth every 8 hours as needed for Pain, Severe. Alternate with Acetaminophen 30 Tablet 0 Acetaminophen 500 MG Oral Tablet (Tylenol) 2 Tablets. Metoprolol Tartrate 50 MG Oral Tablet (Lopressor) TAKE ONE TABLET BY MOUTH TWICE A DAY 180 Tablet 3 Rosuvastatin Calcium 5 MG Oral Tablet (Crestor) Take 1 Tablet by mouth in the morning. 90 Tablet 3 Lisinopril 20 MG Oral Tablet (Prinivil) TAKE ONE TABLET BY MOUTH EVERY MORNING 100 Tablet 2 Sertraline HCl 100 MG Oral Tablet (Zoloft) TAKE ONE TABLET BY MOUTH EVERY MORNING 90 Tablet 3 Magnesium 100 MG Oral Capsule Take 1 Capsule by mouth in the morning. Ondansetron HCl 4 MG Oral Tablet Take 1 Tablet by mouth every 8 hours as needed for Nausea. 30 Tablet 0 Hydrocortisone 2.5 % External Cream Apply topically to affected area 3 times a day. To affected area. 30 g 5 valACYclovir HCl 1 GM Oral Tablet (Valtrex) Take 2 Tablets by mouth in the morning and 2 Tablets before bedtime. for cold sores. 4 Tablet 11 Acetaminophen 500 MG Oral Tablet (Tylenol) Take 2 Tablets by mouth every 6 hours as needed for Pain, Moderate. 100 Tablet 0 amLODIPine Besylate 2.5 MG Oral Tablet (Norvasc) TAKE ONE TABLET BY MOUTH EVERY DAY IN THE EVENING 90 Tablet 2 Phenazopyridine HCl 200 MG Oral Tablet (Pyridium) Take 1 Tablet by mouth 3 times a day as needed. Amoxicillin-Pot Clavulanate 875-125 MG Oral Tablet (Augmentin) Take 1 Tablet by mouth in the morning and 1 Tablet before bedtime. Tamsulosin HCl 0.4 MG Oral Capsule (Flomax) Take 1 Capsule by mouth in the morning. 10 Capsule 1 Ketorolac Tromethamine 10 MG Oral Tablet (Toradol) Take 1 Tablet by mouth 4 times a day as needed for Pain, Moderate. Do not take for longer than 5 days 20 Tablet 0 No current facility-administered medications for this visit. ALLERGIES: Cipro [ciprofloxacin], Metronidazole hcl, Niacin and related, Oxybutynin, Percocet, Sulfa antibiotics, and Zocor [simvastatin] ROS: Constitutional: Negative for fatigue, fever, appetite change, unexplained weight loss. ENT: Negative for hearing loss, sore throat. Respiratory: Negative for cough, shortness of breath, dyspnea. Musculoskeletal: Negative for neck, mid-back or low back pain. Neurological: Negative for headaches, seizures. Genitourinary: Negative for dysuria, urinary frequency, hematuria. Hematologic/ Lymphatic: Negative for easy bleeding, bruising, lymphadenopathy. Gastrointestinal: Negative for abdominal pain, nausea, vomiting, constipation, diarrhea. Cardiovascular: Negative for chest pain, palpitations, ankle swelling, orthopnea. PHYSICAL EXAMINATION: Most Recent Vital Signs: There were no vitals filed for this visit. General Appearance: Patient appears to be about stated age, pleasant and cooperative with normal affect. HEENT: head normocephalic and pupils equal round and reactive to light and accommodation, EOMI Cervical Spine: Normal cervical lordatic curvature is present. No masses palpable. Midline and B paraspinal musculature nontender. No myofascial trigger points. Full active ROM with flexion, extension, rotation and lateral bending bilaterally. Cervical Spine Provocative Testing: Spurling's Test: negative bilaterally Cervical Facet Loading: negative bilaterally Extremity Strength: Shoulder abduction: 5/5 bilaterally Elbow Extension: 5/5 bilaterally Elbow Flexion: 5/5 bilaterally Signal Tester: Equal and symmetric Hip Flexion: 5/5 bilaterally Hip Adduction: 5/5 bilaterally Hip Abduction: 5/5 bilaterally Great Toe Extension: 5/5 bilaterally Deep Tendon Reflex: Biceps: 2/4 bilaterally Triceps: 2/4 bilaterally Brachioradialis: 2/4 bilaterally Patellar: 2/4 bilaterally Achilles: 2/4 bilaterally Sensation: Dermatomal sensation not formally tested. Grossly normal and symmetric unless otherwise specified. Gait: Intact, no sign of ataxia. Ambulates without assistance. IMAGING: MRI C SPINE WO CONTRAST 08/14/2023 11:11 am The visualized posterior fossa structures show no [...] solid ankylosis of the interspace. There is nexc-mk-bqwzofkh spinal stenosis secondary to protrusion of the adjacent endplates into the spinal canal abutting and slightly indenting theventral aspect of the cervical cord. There is mild bilateral neural foraminal narrowing. C7-T1: No significant disc bulge, and no spinal or foraminal stenosis identified. IMPRESSION 1. Advanced degenerative disc and bony changes as described above, most pronounced at the C5-6 and C6-7 levels XR C SPINE 4-5 VIEWS 07/12/2023 11:24 am The cervical spine is adequately visualized. No evidence for acute fracture. Ankylosis at C6-7. Mild reversal of the cervical lordosis. No dynamic instability on flexion or extension views. Multilevel cervical degenerative disc disease notable for disc height loss, endplate osteophyte formation and facet/uncovertebral arthropathy, greatest and moderate at C5-6. No prevertebral soft tissue thickening is noted. IMPRESSION Multilevel cervical degenerative change, greatest at C5-6. No acute findings or dynamic instability. MRI SHOULDER RIGHT WO CONTRAST-RT 08/14/2023 11:13 am Outlet: Type II acromion process. Coracoacromial and coracoclavicular ligaments are intact. Normal acromioclavicular alignment. Rotator cuff: Essentially complete full-thickness supraspinatus and infraspinatus tendon tears, with a few of the most anterior supraspinatus and posterior infraspinatus fibers possibly remaining intact. There is a stump of tendon tissue remaining attached to the greater tuberosity, with a gap of ap proximately 2 cm between it and the retracted tendon stumps. Edema in the infraspinatus muscle suggests that a component of the infraspinatus tendon tear may be acute. Dleu-me-rxwzydph fatty atrophy of the supraspinatus, infraspinatus, and teres minor muscles. Long head biceps tendon: Long head biceps tendon is intact and normal in position. Labrum: Posterosuperior labral tear. Bone and cartilage: No fracture or bone lesion. No glenohumeral cartilage defect. Moderate acromioclavicular osteoarthritis. Other: Non-cuff musculature is normal in bulk. No axillary adenopathy. Neurovascular structures areunremarkable. IMPRESSION 1. Essentially complete full-thickness tears of the supraspinatus and infraspinatus tendons. 2. Sdpd-en-ehtwulho fatty atrophy of the supraspinatus, infraspinatus, and teres minor muscles. 3. Posterosuperior labral tear. 4. Moderate acromioclavicular osteoarthritis. ASSESSMENT: Cervical radicular pain Cervical spinal stenosis PLAN: Doing well since R shoulder injection as provided at [facility] - notes not available for review but was completed by ortho. Neurologically intact. Defer injection at this time. Reviewed C spine MRI 08/14/23 - no acute compression fractures, osseous fusion C6/7, no cord signal changes, ventral cord flattening C5/6 and C6/7 with mild to moderate central stenosis and at least mild foraminal narrowing. Reviewed red flag symptoms of central stenosis - aware to seek urgent care if dexterity/balance changes occur. Will contact clinic if cervical radiculopathy reoccurs. Jacqueline Baker PA-C 08/30/2023 documented in this encounter Nursing Notes * Heather Rodríguez LPN - 08/30/2023 2:40 PM EDT Patient here for neck and R shoulder/arm pain Had inj in hosp-had relief Started in May MRI IN CHART Did PT documented in this encounter Plan of Treatment Upcoming Encounters Date Type Department Care Team (Late st Contact Info) Description 09/02/2023 11:45 AM EDT Office Visit Orthopaedics [facility] [address] [place] [address] Dong Vuong MD [address] [place] [address] 11/26/2023 9:40 AM EDT Office Visit Family Practice [facility] [address] [place] [address] Leta Guerrier DO [address] [facility] [place] [address] Scheduled Procedures Name Priority Associated Diagnoses Date/Ti [...] this encounter Medical Devices Implanted Type Area Quality Analyst Device Identifier Shelf Expiration Date Model / Serial / Lot Percutaneous Extension 2201bun - [id number] - [id number] Implanted:Qty: 1 on 07/13/2022 by Gideon Espino MD at OR [facility] Right: Back [employer] 09/11/2024 9009 / [id number] / Kit Tined Lead - [id number] - [id number] Implanted:Qty: 1 on 07/13/2022 by Gideon Espino MD at OR [facility] Right: Back [employer] 03/14/2025 1201 / [id number] / Neurostim Non Rechargeable - [id number] - [id number] Implanted:Qty: 1 on 07/20/2022 by Gideon Espino MD at OR [facility] N/A: Back [employer] 02/27/2023 4101 / [id number] / documented as of this encounter Visit Diagnoses Diagnosis Cervical radicular pain- Primary Brachial neuritis or radiculitis nos documented in this encounter Advance Directives Documents on File Type Date Recorded 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
--- OUTSIDE RECORDS SUMMARY | 2023-09-06 20:36 | External Medical Summary | Summary of Care ---
Author Name Unknown Organization [facility] Address [address] [place] [address] Phone [phone] Care Team Providers Care Jig Mill Operator Name Role Phone Leta Guerrier DO Primary Care Provider Reason for Visit * Reason Onset Date Comments Medication Pre-auth 08/28/2023 Encounter Details Date Type Department Care Team (Late st Contact Info) Description 08/28/2023 Telephone Family Practice [facility] [address] [place] [address] Leta Guerrier DO [address] [facility] [place] [address] Medication Pre-auth Allergies Active Allergy Reactions Criticality [...] mRNA, LNP-s, No Pre serve, 2-Dose Series ([employer]) 02/22/2021,06/22/2020,06/01/2020 Influenza, Whole Virus 03/02/2002,2000,01/10/1999,01/25 Pneumococcal Conjugate [...] encounter Miscellaneous Notes * Telephone Encounter - Katlin Osborn PA-C - 08/28/2023 12:35 PM EDT Will not pursue at this time. Please inform patient. * Telephone Encounter - Lexi Tubbs CPhT - 08/28/2023 10:47 AM EDT [facility] calling to see if the the clinical information was sent yet, advised it is still pending. Thank you, Lexi Tubbs CPhT Paper Box Maker [facility] 08/28/2023,10:47 AM * Telephone Encounter - Bhakti [...] alternative if appropriate. Thank you, Bhakti Burnett, Hoda Clinical Pharmacist [facility] ([facility]) (formerly [facility]) [phone] 08/28/2023, 10:42 AM * Telephone Encounter - Monica Quinn PHARM Tech - 08/28/2023 9:38 AM EDT Bhakti calling from [facility]. Needs clinical information sent over for Ketorolac 10mg tablet. Please faxinformation to [phone] or drop in [facility] chat FREDDY. EOC [phone] Requesting clinical Criteria for NMI specifically Do [...] naproxen dr, oxaprozin, piroxicam, sulindac, tolmetin sodium Monica Green Paper Box Maker III [facility]) 08/28/2023,9:39 AM documented in this encounter Plan of Treatment Upcoming Encounters Date Type Department Care Team (Late st Contact Info) Description 08/30/2023 2:30 PM EDT Office Visit Interventional Pain Center, [facility] [address] [place] [address] Jacqueline Baker PA-C [address] [place] [address] 09/02/2023 11:45 AM EDT Office Visit Orthopaedics [facility] [address] [place] [address] Dong Vuong MD [address] [address] 11/26/2023 9:40 AM EDT Office Visit [facility] [address] [facility] [place] [address] Leta Guerrier DO [address] [facility] [place] [address] Scheduled Procedures Name Priority Associated Diagnoses Date/Ti [...] this encounter Medical Devices Implanted Type Area Model Technician Device Identifier Shelf Expiration Date Model / Serial / Lot Percutaneous Extension 2201bun - [id number] - [id number] Implanted:Qty: 1 on 07/13/2022 by Gideon Espino MD at [facility] Right: Back [employer] 09/11/2024 9009 / [id number] / Kit Tined Lead - [id number] - [id number] Implanted:Qty: 1 on 07/13/2022 by Gideon Espino MD at OR [facility] Right: Back [employer] 03/14/2025 1201 / [id number] / Neurostim Non Rechargeable - [id number] - [id number] Implanted:Qty: 1 on 07/20/2022 by Gideon Espino MD at OR [facility] N/A: Back [employer] 02/27/2023 4101 / [id number] / documented as of this encounter Visit Diagnoses Diagnosis Kidney stone on left side Calculus of kidney documented in this encounter Advance Directives Documents on File Type Date Recorded 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
[2023-09-06] MEDS: MAGNESIUM OXIDE 400 MG TAB PO SCH (20:38)
[2023-09-06] MEDS: cefTRIAXone SODIUM 2,000 MG/50 ML BAG IV SCH (21:50)
[2023-09-06] MEDS ORDERED: Nursing to Pharmacy Communication SCH (23:45)
--- NOTE | 2023-09-07 05:34 | Electrocardiogram Report ---
Test Reason : Blood Pressure : / mmHG Vent. Rate : 073 BPM Atrial Rate : 073 BPM P-R Int : 186 ms QRS Dur : 082 ms QT Int : 370 ms P-R-T Axes : 048 -02 077 degrees QTc Int : 407 ms Normal sinus rhythm Normal ECG When compared with ECG of 22-AUG-2023 10:01, No significant change was found Confirmed by Kaden Benitez ([id number]) on 09/07/2023 5:34:30 AM Referred By: REFERRED SELF Confirmed By:Kaden Benitez
[2023-09-07 07:44] LABS: Hematocrit (blood only) 28.4 % (37.0-47.0); Hemoglobin 9.1 g/dl (12.0-16.0); Mean Corpuscular Hemoglobin 30.2 pg (25.0-34.0); Mean Corpuscular Volume 94.4 fL (80.0-100.0); Mean Platelet Volume 9.1 fL (9.4-12.4); Platelet Count 176 K/uL (130-400); RDW Coefficient of Variation 14.5 % (11.5-14.5); RDW Standard Deviation 50.4 fL (36.4-46.3); Red Blood Count 3.01 M/uL (4.20-5.40); White Blood Count 6.18 K/ul (4.8-10.8)
[2023-09-07 08:19] LABS: Albumin Globulin Ratio 1.1 (0.9-2); Albumin Level 2.7 gm/dl (3.4-5.0); BUN Creatinine Ratio 20.6 (10-20); Bilirubin,Total 0.4 mg/dl (0.2-1.0); Calcium 8.8 mg/dl (8.6-10.3); Creatinine Clr Calc Pharmacy 64.8 ml/min; Est GFR (African American) 97.8 ml/min; Est GFR (Non-African American) 84.4 ml/min; Globulin 2.5 gm/dl (2.5-4.0); Potassium 3.4 mmol/L (3.5-5.1); Total Protein 5.2 gm/dl (6.0-8.3)
--- NOTE | 2023-09-07 12:52 | Hospitalist Progress Note ---
Date of Service September 07, 2023 Assessment & Plan (1) Acute pyelonephritis: Plan: 78-year-old female with past medical history significant for dyslipidemia, hypertension, diverticulosis of colon, female incontinence, depression, neurostimulator device, mood disorder comes in because of nausea vomiting and diarrhea going on for last 2 days. She has several episodes of vomiting. Has abdominal discomfort. Patient was recently in the hospital for diverticulitis and also obstructive uropathy s/p left ureteral stent placement. In the ER she had fever, headache. UA came back positive. CT scan showing ileitis and signs suggestive of acute pyeloneophritis Sepsis Acute pyelonephritis Recent obstructive uropathy s/p left ureteral stent placement UA positive for UTI Was started on Zosyn on admission Blood cultures from 09/04 growing GNR Urine culture from 09/04/ growing GNR Antibiotics deescalated to IV ceftriaxone based on biofire Follow up speciation and sensitivities Follow up repeat blood culture Urology evaluation noted continue Flomax Nausea vomiting and diarrhea CT scan showing ileitis Stool PCR and c diff negative Po vanc stopped Continue IVF, reduced Symptom management Advance diet Hypertension Continue to hold amlodipine and lisinopril for now in view of sepsis BP is normal Continue metoprolol with holding parameters Hyperlipidemia On statin Depression On Zoloft DVT prophylaxis Lovenox sq Full code I spent a total of 50 minutes coordinating, documenting and providing care for this patient excluding time spent in performance of separately billed services Admission and Anticipated Discharge Date Admission Date: September 06, 2023 Subjective Patient seen and examined. Reports feeling better today. Reported 1 episode of loose stool yesterday but none since. Denies any abdominal pain. Denies cough, chest pain, shortness of breath Denies fevers, chills, nausea vomiting Reports some urgency even though she has cath in place. Denies any other complaints Physical Exam Constitutional: + well hydrated; no acute distress Eyes: PERRL, conjunctivae normal, anicteric sclerae ENMT: external ear and nose normal, oropharynx normal Respiratory: normal respiratory effort, lungs clear to auscultation Cardiovascular: Rate/Rhythm: regular rate and regular rhythm Gastrointestinal (Abdomen): normal bowel sounds, soft, nontender, no hepatosplenomegaly Musculoskeletal: No pedal edema Neurologic: PERRL, EOMI, accommodation nl, no face palsy, no dysarthria Psychiatric: A+Ox3, euthymic affect Genitourinary: Correa in situ Results & Data Results & Data Vital Signs (Past 12 Hours) Vital Signs Temp Pulse Resp BP Pulse Ox O2 Del Method 09/07/23 11:02 37.0 C 60 18 113/59 L 95 Room Air 09/07/23 07:08 36.8 C 69 18 111/62 92 Room Air 09/07/23 03:14 36.8 C 66 16 128/70 96 Room Air Laboratory Results Abnormal lab results 09/07/23 Range/Units 07:13 RBC 3.01 L (4.20-5.40) M/uL Hgb 9.1 L (12.0-16.0) g/dl Hct 28.4 L (37.0-47.0) % RDW Std Deviation 50.4 H (36.4-46.3) fL MPV 9.1 L (9.4-12.4) fL Potassium 3.4 L (3.5-5.1) mmol/L Chloride 112 H (98-107) mmol/L BUN/Creatinine Ratio 20.6 H (10-20) Glucose 116 H (70-99(Fasting)) mg/dl Alkaline Phosphatase 110 H (34-104) U/L Total Protein 5.2 L D (6.0-8.3) gm/dl Albumin 2.7 L (3.4-5.0) gm/dl
[2023-09-07] MEDS: POTASSIUM CHLORIDE CRTAB 20 MEQ TABCR PO STA (13:11)
[2023-09-08 08:30] LABS: Hematocrit (blood only) 32.5 % (37.0-47.0); Hemoglobin 10.3 g/dl (12.0-16.0); Mean Corpuscular Hemoglobin 30.1 pg (25.0-34.0); Mean Corpuscular Hgb Conc 31.7 g/dL (32.0-36.0); Mean Platelet Volume 8.9 fL (9.4-12.4); Platelet Count 201 K/uL (130-400); RDW Coefficient of Variation 14.2 % (11.5-14.5); RDW Standard Deviation 49.2 fL (36.4-46.3); Red Blood Count 3.42 M/uL (4.20-5.40); White Blood Count 6.28 K/ul (4.8-10.8)
[2023-09-08 08:53] LABS: Albumin Globulin Ratio 1.1 (0.9-2); Bilirubin,Total 0.4 mg/dl (0.2-1.0); Calcium 9.4 mg/dl (8.6-10.3); Creatinine Clr Calc Pharmacy 69.2 ml/min; Est GFR (African American) 100.3 ml/min; Est GFR (Non-African American) 86.5 ml/min; Globulin 2.7 gm/dl (2.5-4.0); Potassium 3.6 mmol/L (3.5-5.1); Total Protein 5.7 gm/dl (6.0-8.3)
--- NOTE | 2023-09-08 10:47 | Hospitalist Progress Note ---
Date of Service September 08, 2023 Assessment & Plan (1) Acute pyelonephritis: Plan: 78-year-old female with past medical history significant for dyslipidemia, hypertension, diverticulosis of colon, female incontinence, depression, neurostimulator device, mood disorder comes in because of nausea vomiting and diarrhea going on for last 2 days. She has several episodes of vomiting. Has abdominal discomfort. Patient was recently in the hospital for diverticulitis and also obstructive uropathy s/p left ureteral stent placement. In the ER she had fever, headache. UA came back positive. CT scan showing ileitis and signs suggestive of acute pyeloneophritis Sepsis Acute pyelonephritis E coli bacteremia Recent obstructive uropathy s/p left ureteral stent placement UA positive for UTI Was started on Zosyn on admission Blood cultures from 09/04 growing E coli Urine culture from 09/04/ growing E coli Antibiotics deescalated to IV ceftriaxone based on biofire Repeat BCx from 09/05 growing GNR today Repeat BCx Discussed with Urologist today ID consult Continue Flomax Nausea vomiting and diarrhea CT scan showing ileitis Stool PCR and c diff negative Symptoms resolving Hypertension Continue to hold amlodipine and lisinopril for now in view of sepsis BP is normal Continue metoprolol with holding parameters Hyperlipidemia On statin Depression On Zoloft DVT prophylaxis Lovenox sq Full code I spent a total of 50 minutes coordinating, documenting and providing care for this patient excluding time spent in performance of separately billed services Admission and Anticipated Discharge Date Admission Date: September 06, 2023 Subjective Patient seen and examined. Reports feeling better today. Denies any abdominal pain. Denies cough, chest pain, shortness of breath Denies fevers, chills, nausea vomiting Still reports some urgency with martínez in place Physical Exam Constitutional: + well hydrated; no acute distress Eyes: PERRL, conjunctivae normal, anicteric sclerae ENMT: external ear and nose normal, oropharynx normal Respiratory: normal respiratory effort, lungs clear to auscultation Cardiovascular: Rate/Rhythm: regular rate and regular rhythm S1 S2 Gastrointestinal (Abdomen): normal bowel sounds, soft, nontender, no hepatosplenomegaly Musculoskeletal: No pedal edema Neurologic: PERRL, EOMI, accommodation nl, no face palsy, no dysarthria Psychiatric: A+Ox3, euthymic affect Genitourinary: Martínez in situ Results & Data Results & Data Vital Signs (Past 12 Hours) Vital Signs Temp Pulse Pulse Resp BP Pulse Ox O2 Del Method 09/08/23 10:21 Room Air 09/08/23 07:02 36.7 C 69 16 127/66 92 Room Air 09/08/23 07:00 61 09/08/23 03:30 36.4 C L 62 16 122/56 L 93 Room Air 09/07/23 23:38 36.9 C 67 18 128/61 92 Room Air Laboratory Results Abnormal lab results 09/08/23 Range/Units 08:13 RBC 3.42 L (4.20-5.40) M/uL Hgb 10.3 L (12.0-16.0) g/dl Hct 32.5 L (37.0-47.0) % MCHC 31.7 L (32.0-36.0) g/dL RDW Std Deviation 49.2 H (36.4-46.3) fL MPV 8.9 L (9.4-12.4) fL Chloride 114 H (98-107) mmol/L Glucose 106 H (70-99(Fasting)) mg/dl AST 42 H (13-39) U/L ALT 62 H (7-52) U/L Alkaline Phosphatase 157 H (34-104) U/L Total Protein 5.7 L (6.0-8.3) gm/dl Albumin 3.0 L (3.4-5.0) gm/dl
[2023-09-08] MEDS: ACETAMINOPHEN 325 MG TAB PO STA (22:15)
[2023-09-09 06:32] LABS: Hematocrit (blood only) 29.7 % (37.0-47.0); Hemoglobin 9.5 g/dl (12.0-16.0); Mean Corpuscular Hemoglobin 30.1 pg (25.0-34.0); Mean Platelet Volume 8.8 fL (9.4-12.4); Platelet Count 180 K/uL (130-400); RDW Coefficient of Variation 13.9 % (11.5-14.5); RDW Standard Deviation 47.8 fL (36.4-46.3); Red Blood Count 3.16 M/uL (4.20-5.40); White Blood Count 5.81 K/ul (4.8-10.8)
[2023-09-09 06:53] LABS: Albumin Globulin Ratio 1.2 (0.9-2); Albumin Level 2.9 gm/dl (3.4-5.0); BUN Creatinine Ratio 16.9 (10-20); Bilirubin,Total 0.3 mg/dl (0.2-1.0); Calcium 9.4 mg/dl (8.6-10.3); Creatinine Clr Calc Pharmacy 60.3 ml/min; Est GFR (African American) 95.2 ml/min; Est GFR (Non-African American) 82.2 ml/min; Globulin 2.5 gm/dl (2.5-4.0); Total Protein 5.4 gm/dl (6.0-8.3)
--- NOTE | 2023-09-09 10:53 | Hospitalist Progress Note ---
Date of Service September 09, 2023 Assessment & Plan (1) Acute pyelonephritis: Plan: 78-year-old female with past medical history significant for dyslipidemia, hypertension, diverticulosis of colon, female incontinence, depression, neurostimulator device, mood disorder comes in because of nausea vomiting and diarrhea going on for last 2 days. She has several episodes of vomiting. Has abdominal discomfort. Patient was recently in the hospital for diverticulitis and also obstructive uropathy s/p left ureteral stent placement. In the ER she had fever, headache. UA came back positive. CT scan showing ileitis and signs suggestive of acute pyeloneophritis Sepsis Acute pyelonephritis E coli bacteremia Recent obstructive uropathy s/p left ureteral stent placement UA positive for UTI Was started on Zosyn on admission Blood cultures from 09/04 growing E coli Urine culture from 09/04/ growing E coli Antibiotics deescalated to IV ceftriaxone based on biofire Repeat BCx from 09/05 growing E coli Repeat BCx in lab ID recs noted. Continue IV ceftriaxone and deescalate to Augmentin on dc to complete 14 days total of Abx Continue Flomax Nausea vomiting and diarrhea CT scan showing ileitis Stool PCR and c diff negative Hypertension Resume home lisinopril and monitor Hyperlipidemia On statin Depression On Zoloft DVT prophylaxis Lovenox sq Full code I spent a total of 40 minutes coordinating, documenting and providing care for this patient excluding time spent in performance of separately billed services Admission and Anticipated Discharge Date Admission Date: September 06, 2023 Subjective Patient seen and examined. Reports feeling better today. No complaints today Physical Exam Constitutional: + well hydrated; no acute distress Eyes: PERRL, conjunctivae normal, anicteric sclerae ENMT: external ear and nose normal, oropharynx normal Respiratory: normal respiratory effort, lungs clear to auscultation Cardiovascular: Rate/Rhythm: regular rate and regular rhythm Gastrointestinal (Abdomen): normal bowel sounds, soft, nontender, no hepatosplenomegaly Musculoskeletal: No pedal edema Neurologic: PERRL, EOMI, accommodation nl, no face palsy, no dysarthria Psychiatric: A+Ox3, euthymic affect Genitourinary: Correa in situ Results & Data Results & Data Vital Signs (Past 12 Hours) Vital Signs Temp Pulse Pulse Resp BP Pulse Ox O2 Del Method 09/09/23 10:41 65 09/09/23 08:46 Room Air 09/09/23 04:26 36.5 C 55 L 20 122/71 93 Room Air 09/08/23 23:53 36.7 C 59 L 20 125/65 92 Room Air Laboratory Results Abnormal lab results 09/09/23 Range/Units 06:09 RBC 3.16 L (4.20-5.40) M/uL Hgb 9.5 L (12.0-16.0) g/dl Hct 29.7 L (37.0-47.0) % RDW Std Deviation 47.8 H (36.4-46.3) fL MPV 8.8 L (9.4-12.4) fL Chloride 113 H (98-107) mmol/L ALT 62 H (7-52) U/L Alkaline Phosphatase 161 H (34-104) U/L Total Protein 5.4 L (6.0-8.3) gm/dl Albumin 2.9 L (3.4-5.0) gm/dl
--- NOTE | 2023-09-09 12:52 | Infectious Disease Consult ---
Date of Service September 09, 2023 Telehealth Information I performed this visit using a real-time telehealth connection between my location and the patients location ([facility]). After connecting through interactive tele-video, patient was identified by name and date of and/or wristband check.Patient (or authorized healthcare insurance verification representative) was informed that this was a telemedicine visit and it was being conducted confidentially over secure lines. My office door was closed and no one else was present in the room with me.Patient (or authorized healthcare insurance verification representative) provided consent to proceed with the visit, expressed an understanding of privacy and security of the telemedicine visit, and gave permission to have a hospital insurance verification representative in the room in order to assist with the visit and to conduct portions of the visit, as needed. I informed the patient (or authorized healthcare insurance verification representative) that I reviewed their record and presented the opportunity for them to ask any questions regarding the visit today. The patient agreed to participate. Assessment & Plan (1) Acute UTI (urinary tract infection): Plan: Continue ceftriaxone (2) Acute pyelonephritis: Plan: Will require a total of 14 days of antibiotics (3) E. coli bacteremia: Plan: Recomend treating with ceftriaxone and can de-escalate to augmentin on discharge Plan Patient who presented with nausea,vomiting and diarrhea who was found to have E Coli bacteremia and UTI on ceftriaxone .Recommend treating for a total of 14 days with ceftriaxone (ciprofloxacin could be used but has allergies and augmentin is an option if no contra-indications0.Thank you for allowing us to participate in the care of this patient ID will sign off History of Present Illness History of Present Illness 78 y/o F PMHx dyslipidemia, hypertension, diverticulosis of colon, female incontinence, depression, neurostimulator device, mood disorder presented with nausea vomiting and diarrhea for 2 days.Patient was recently in the hospital for diverticulitis and also was found to have obstructive uropathy s/p left ureteral stent placement. There is a plan for cystoscopy and stone extraction but on the CAT scan the stone is not visible. UA came back positive. CT scan showing ileitis.His blood and urine cultures have grown E Coli and he is on ceftriaxone Allergies Allergy/AdvReac Type Severity Reaction Status Date / Time ciprofloxacin Allergy Intermediate RASH, CAN Verified 08/27/23 15:32 NOT TAKE WITH CALCIUM metronidazole Allergy Intermediate METALLIC Verified 08/27/23 15:32 TASTE niacin Allergy Intermediate Hives Verified 08/27/23 15:32 oxybutynin Allergy Intermediate metal Verified 08/27/23 15:32 taste in mough Sulfa (Sulfonamide Allergy Intermediate BAD TASTE Verified 08/27/23 15:32 Antibiotics) IN MOUTH oxycodone [From Percocet] AdvReac Intermediate HALLUCINATI Verified 08/27/23 15:32 ONS simvastatin [From Zocor] AdvReac Unknown didn't work Verified 08/27/23 15:32 Home Medications Medication Instructions Recorded Confirmed Type amlodipine 2.5 mg tablet 2.5 mg PO QPM 09/03/22 09/05/23 History lisinopril 20 mg tablet 20 mg PO QAM 09/03/22 09/05/23 History metoprolol tartrate 50 mg tablet 50 mg PO BID 09/03/22 09/05/23 History sertraline 100 mg tablet 100 mg PO QAM 09/03/22 09/05/23 History rosuvastatin 5 mg tablet 5 mg PO QAM 08/18/23 09/05/23 History magnesium oxide 400 mg PO QPM 08/27/23 09/05/23 History tamsulosin 0.4 mg capsule 0.4 mg PO QAM 09/05/23 09/05/23 History Patient History Medical History Urge incontinence Bladder stimulator in [facility]- educated to bring remote DOS Disorder of right rotator cuff Dx'ed with rotator cuff tear 07/2023 Arthritis History of diverticulitis Mild diverticulitis on 08/18/23 A/P CT scan during [facility] admission- discharged on PO Augmentin Anxiety and depression Leg cramping hx (reason for magnesium) Kidney stone on left side HLD (hyperlipidemia) HTN (hypertension) Surgical History History of cystoscopy Cystoscopy with left retrograde pyelogram, and Left Stent Placement 08/19/23 [place] H/O foot surgery right/left History of colonoscopy History of tooth extraction History of tonsillectomy and adenoidectomy H/O: hysterectomy Family History Brother Prostate cancer Nephrolithiasis Other No family history of adverse response to anesthesia No pertinent family history Denies family history of Bladder cancer Bleeding disorder Kidney carcinoma Social History Smoking Status: Never smoker Second Hand Exposure: Yes (in the past); Do You Dip or Chew Tobacco: No; Hx Alcohol Use: No Hx Substance Use: No Preferred Language: Sinhala Communication Ability: Effective Hearing Ability: Normal Aircraft Navigator Required: No Beliefs That Will Affect Care: None Current Living Situation: Alone Current Living Situation Comment: son rajni lives next door current occupational status: retired Feels Safe at Home: Yes Safety Concerns: Feels Safe At This Time Assistive Devices: None Review of Systems denies dysuria Physical Exam Awake alert oriented no respiratory distress Results & Data Vital Signs (Past 12 Hours) Vital Signs Temp Pulse Pulse Resp BP Pulse Ox O2 Del Method 09/09/23 12:04 36.8 C 69 16 154/74 H 93 Room Air 09/09/23 10:41 65 09/09/23 08:46 Room Air 09/09/23 04:26 36.5 C 55 L 20 122/71 93 Room Air Laboratory Results E coli RX M.I.C. --- --------- Amox/Clav S <=8/4 Ampicillin S <=8 Amp/Sul S <=8/4 Cefazolin S <=2 E coli RX M.I.C. --- --------- Amox/Clav S <=8/4 Ampicillin S <=8 Amp/Sul S <=8/4 Cefazolin S <=2 Cefepime S <=2 Ceftriaxone S <=1 Ciprofloxacin S <=0.25 Ertapenem S <=0.5 Gentamicin S <=4 Levofloxacin S <=0.5 Meropenem S <=1 Tobramycin S <=4 Trimeth/Sulfa S <=2/38 Pip/Tazo S <=16 S = SENSITIVE I = INTERMEDIATE R = RESISTANT Cefepime S <=2 Ceftriaxone S <=1 Ciprofloxacin S <=0.25 Ertapenem S <=0.5 Gentamicin S <=4 Levofloxacin S <=0.5 Meropenem S <=1 Nitrofurantoin S <=32 Tobramycin S <=4 Trimeth/Sulfa S <=2/38 Pip/Tazo S <=16 S = SENSITIVE I = INTERMEDIATE R = RESISTANT Diagnostic Findings IMPRESSION: 1. There is new mucosal thickening of the terminal ileum and ileocecal region with surrounding fat stranding and minimal fluid. This is more prominent than on the previous examination. No evidence for retrograde small bowel obstruction at this time. Findings are most consistent with developing infectious or inflammatory terminal ileitis. No abscess or pneumoperitoneum. 2. When compared to the previous examination, there has been interval placement of a left double-J ureteral stent with the previously noted proximal left ureteral stone no longer evident. There is mild left hydronephrosis. There is subtle heterogeneous enhancement with some suggestion of striation involving the left kidney and asymmetric left perinephric fat stranding. Findings are suspicious for developing left pyelonephritis. No perinephric abscess.
[2023-09-09] MEDS: lisinopril 20 MG TAB PO SCH (16:59)
[2023-09-09] MEDS: ACETAMINOPHEN 325 MG TAB PO STA (20:25)
[2023-09-10 07:24] LABS: Hematocrit (blood only) 28.6 % (37.0-47.0); Hemoglobin 9.5 g/dl (12.0-16.0); Mean Corpuscular Hemoglobin 30.5 pg (25.0-34.0); Mean Corpuscular Hgb Conc 33.2 g/dL (32.0-36.0); Mean Platelet Volume 9.1 fL (9.4-12.4); Platelet Count 197 K/uL (130-400); RDW Coefficient of Variation 13.9 % (11.5-14.5); RDW Standard Deviation 46.6 fL (36.4-46.3); Red Blood Count 3.11 M/uL (4.20-5.40); White Blood Count 6.46 K/ul (4.8-10.8)
[2023-09-10 07:45] LABS: BUN Creatinine Ratio 16.9 (10-20); Calcium 9.1 mg/dl (8.6-10.3); Creatinine Clr Calc Pharmacy 66.5 ml/min; Est GFR (African American) 99.3 ml/min; Est GFR (Non-African American) 85.6 ml/min; Potassium 3.8 mmol/L (3.5-5.1)
--- NOTE | 2023-09-10 12:35 | Discharge Summary ---
Date of Service September 10, 2023 Admission HPI Per Admitting Provider 78-year-old female with past medical history significant for dyslipidemia, hypertension, diverticulosis of colon, female incontinence, depression, neurostimulator device, mood disorder comes in because of nausea vomiting and diarrhea going on for last 2 days. She has several episodes of vomiting. No blood in the vomitus. And she had several episodes of diarrhea today. Denies any blood in the stools. Has abdominal discomfort. In the ER she was spiking temperature. Has had a headache because she did not eat anything today. No blurred vision. No runny nose. No sore throat. No cough. No chest pain or shortness of breath. Micturating okay. Hemodynamics are okay. Patient was recently in the hospital for diverticulitis and also obstructive uropathy s/p left ureteral stent placement. There is a plan for cystoscopy and stone extraction but on the CAT scan today the stone is not visible. UA came back positive. CT scan showing ileitis. Past med history. As mentioned above. Past surgical history. Colonoscopy, correction of bladder defect, implantation of neurostimulator, bladder surgery, hemorrhoid surgery, removal of ovaries, tonsillectomy adenoidectomy, total hysterectomy. Social history. No smoking. No alcohol use. No drug use. Family history. Daughter had breast cancer. Colon cancer. Mother had emphysema. Hypertension. Sister has hypertension. Maternal grandmother had stroke. Sister has thyroid disorder. Brother has heart disorder. Admission Exam Per Admitting Provider General- Not in distress Head- atraumatic Eyes- PERRL. ENT- oropharynx clear Neck- supple, no JVD. Lungs- clear to auscultation no wheezing or crackles. Heart- regular rate and rhythm; no murmur, no gallop. Abdomen- normal bowel sounds, soft, mild diffuse discomfort, no distension Extremities- no pretibial edema, no erythema seen. Neuro- alert, oriented , PERRL, no facial palsy; no dysarthria; moves extremit ies. Skin- warm & dry Principal Diagnosis Sepsis Acute pyelonephritis (Complicated urinary tract infection) E coli bacteremia Discharge Exam Constitutional + well hydrated; no acute distress Eyes PERRL, conjunctivae normal, anicteric sclerae ENMT external ear and nose normal, oropharynx normal Respiratory normal respiratory effort, lungs clear to auscultation Cardiovascular Rate/Rhythm: regular rate and regular rhythm S1 S2 Gastrointestinal (Abdomen) normal bowel sounds, soft, nontender, no hepatosplenomegaly Musculoskeletal No pedal edema Neurologic PERRL, EOMI, accommodation nl, no face palsy, no dysarthria Psychiatric A+Ox3, euthymic affect Genitourinary No CVA tenderness Martínez in situ Discharge Data Allergies Allergy/AdvReac Type Severity Reaction Status Date / Time ciprofloxacin Allergy Intermediate RASH, CAN Verified 08/27/23 15:32 NOT TAKE WITH CALCIUM metronidazole Allergy Intermediate METALLIC Verified 08/27/23 15:32 TASTE niacin Allergy Intermediate Hives Verified 08/27/23 15:32 oxybutynin Allergy Intermediate metal Verified 08/27/23 15:32 taste in mough Sulfa (Sulfonamide Allergy Intermediate BAD TASTE Verified 08/27/23 15:32 Antibiotics) IN MOUTH oxycodone [From Percocet] AdvReac Intermediate HALLUCINATI Verified 08/27/23 15:32 ONS simvastatin [From Zocor] AdvReac Unknown didn't work Verified 08/27/23 15:32 Consultations 09/05/23 23:30 ED Decision to Admit Stat 09/06/23 07:51 Consult Urology Routine 09/06/23 08:00 Consult Gastroenterology Routine 09/08/23 12:39 Consult Infectious Diseases Routine Procedures Performed Operation Date: 09/12/23 13:20 <No data on this case meets the specified criteria> Ordered Studies 09/05/23 21:05 CT Abd and Pelvis [CT abd pelvis IV con only] Stat Hospital Course (1) Acute pyelonephritis: 78-year-old female with past medical history significant for dyslipidemia, hypertension, diverticulosis of colon, female incontinence, depression, neurostimulator device, mood disorder comes in because of nausea vomiting and diarrhea going on for last 2 days. She has several episodes of vomiting. Has abdominal discomfort. Patient was recently in the hospital for diverticulitis and also obstructive uropathy s/p left ureteral stent placement. In the ER she had fever, headache. UA came back positive. CT scan showing ileitis and signs suggestive of acute pyeloneophritis Sepsis Acute pyelonephritis E coli bacteremia Recent obstructive uropathy s/p left ureteral stent placement UA positive for UTI Was started on Zosyn on admission Blood cultures from 09/04 growing E coli Urine culture from 09/04/ growing E coli Antibiotics deescalated to IV ceftriaxone based on biofire Repeat BCx from 09/05 growing E coli Repeat BCx 09/07 negative to date ID evalauted and recommended deescalating to Augmentin on dc to complete 14 days total of Abx Patient discharged on po Augmentin to complete treatment Continue Flomax Patient was placed on martínez inpatient per Urology RN confirmed with Urology that patient be discharged with martínez. Urology has a previously scheduled procedure for patient later in the week Nausea vomiting and diarrhea CT scan showing ileitis Stool PCR and c diff negative Resolved Hypertension Continue home antihypertensives Hyperlipidemia On statin Depression On Zoloft Total Time Total Time Spent Total Time Spent (In Minutes): 35 Total Time Includes: Examination of the Patient, Discharge Planning and Medication Reconciliation Discharge Plan Discharge Items Patient Disposition: Home - Self-Care Reason For Visit: Nausea, vomiting, diarrhea Discharge Diagnosis: Sepsis Acute pyelonephritis (Complicated urinary tract infection) E coli bacteremia Activity: Resume your previous activity Non-emergency contact: Primary Care Provider and Urologist Call non-emergency contact if: you have any medication questions and your symptoms worsen Follow-up/Referrals: Leta Guerrier DO [Primary Care Provider] - (Date & Time 09/17/2023 11:00 AM Provider Leta Guerrier DO Department [facility] ) Diet: Heart Healthy Addtl Attending Provider Instructions: Mrs Obregon You came to the hospital complaining of nausea, vomiting and diarrhea You were evaluated and managed for the above listed diagnoses. You were treated with injection antibiotics and your symptoms resolved. You are being discharged on oral antibiotics (Augmentin) for next 10 days to complete treatment. You are being discharged with martínez catheter as recommended by Urology. Please ensure follow up with Urology as discussed. Please ensure follow up with your Primary Doctor. It was a pleasure taking care of you Pending Studies at Discharge: No Stand-Alone Forms: [employer] Smoking Cessation Medications and DC Order Prescriptions: New amoxicillin-pot clavulanate 875-125 mg Tablet 1 tab PO BIDM 10 Days Qty: 20 0RF Continued lisinopril 20 mg Tablet 20 mg PO QAM sertraline 100 mg Tablet 100 mg PO QAM amlodipine 2.5 mg Tablet 2.5 mg PO QPM metoprolol tartrate 50 mg Tablet 50 mg PO BID rosuvastatin 5 mg tablet 5 mg PO QAM magnesium oxide 400 mg magnesium Capsule 400 mg PO QPM tamsulosin 0.4 mg capsule 0.4 mg PO QAM Discharge Orders: Discharge Order (Routine); Ordered 09/10/23 Ordered By: Orly Feliz/Other Patient Handouts: Urinary Catheter Bag Empty Clean, Indwelling Urinary Catheter Dc, Leg Bag Care Dc Admission Data Admit Date/Time: 09/06/23 01:21 Attending Provider: Orly Archuleta I. Admit Provider: Jacob Abdi Primary Care Provider: Leta Guerrier Other Providers: Jacob Abdi; Ernst Persaud; Carlos Lal; Christine Cantrell; Yessica Arguello; Summer Javier; Yvette Stringer; Laura Hernández; Stan Carroll; Chandra Chavez; Renetta Strauss; Sanjuanita Proctor; eMrcy Mcgill S; Ary Aranda; Hodan Chu; Misty Brennan; Shannan Mcqueen; Diandra Ayala; Joaquín Whyte; Thomas Camacho; Heather Aguilera; Jt Schaefer Jr; Ryan Guevara; Toan Burciaga; Eber Huynh; Minh Montez; Beti Zimmerman; Jacek Saldana; Sari Kunz; Bety Fletcher; Yariel Farris; Ledy Davidson; Hung Duenas; Roge Mireles; Rashi Sierra; Marcos Dukes; Nat Barrientos; Wesley Angel I.; Leland Barbosa II; Cora Leach; Chucho Mariscal; Meet Coley; Awali,Reda A. Other Interventions: Discharge Summary Assessment (RN) Last Done: 09/10/23 12:46
[2023-09-10] MEDS ORDERED: AMOXICILLIN/CLAVULANATE 875 MG TAB PO SCH (17:00)
== END 2023-09-10 15:12 | disposition home or self-care (01) | DRG 872 ==
LOC: ED 20:18 → EDINP 09-06 01:21 → 2S 09-06 03:22 → 2W 09-07 18:11